=== PATIENT | female | born 1945 | race Caucasian/White ===

== ENCOUNTER → 2016-10-29 | Outpatient (CLI) | payer MEDICARE, OTHER ==
--- NOTE | 2016-10-29 11:34 | REP ---
URINARY TRACT SONOGRAPHY: HISTORY: Chronic kidney disease, stage IV. No comparison studies. FINDINGS: Scanning at the level of the urinary bladder shows that it is empty at the time of scanning and not visualized. Renal cortical echogenicity pattern is increased bilaterally consistent with chronic medical renal disease. There is no evidence of hydronephrosis on either side. Bilateral renal cortical atrophy is seen. There is the suggestion of some fullness in the right adrenal gland consistent with hyperplasia versus adenoma. Overall dimensions of the right adrenal are measured at 2.3 x 1.3 x 2.3 cm. Right renal dimensions are 8.4 x 3.8 x 5.5 cm. Left kidney measures 8.3 x 4.3 x 4.6 cm. IMPRESSION: Increased renal cortical echogenicity and bilateral renal cortical atrophy consistent with chronic medical renal disease. No mass, cyst or hydronephrosis is seen. Mild enlargement right adrenal gland, hyperplasia versus adenoma. Otherwise unremarkable. Signed by Ranjeet Almaguer MD 10/29/2016 12:59 P
== END ==
LOC: M RAD 10:01
PROVIDERS: ATTEND Internal Medicine Nephrology
DX: N18.4 Chronic kidney disease, stage 4 (severe) (principal)

== ENCOUNTER → 2018-10-17 | Outpatient (REF) | payer MEDICARE, OTHER ==
[2018-10-17 14:28] LABS: BASO # 0.1 10^3/uL (0.0-0.2); BASO % 1.3 % (0.0-1.0); EOS # 0.5 10^3/uL (0.0-0.50); HEMOGLOBIN 12.2 g/dl (12.0-15.5); LYMPH # 1.8 10^3/uL (1.5-4.5); LYMPH % 30.5 % (24.0-44.0); MEAN CORPUSCULAR HEMOGLOBIN 31.1 pg (27.0-33.0); MEAN CORPUSCULAR HGB CONC 32.1 g/dl (32.0-36.5); MEAN CORPUSCULAR VOLUME 96.9 fl (80.0-96.0); MONO # 0.8 10^3/uL (0.0-0.8); MONO % 13.2 % (0.0-5.0); NEUTROPHILS # 2.8 10^3/uL (1.8-7.7); NEUTROPHILS % 46.7 % (36.0-66.0); PLATELET COUNT, AUTOMATED 282 10^3/uL (150-450); RED BLOOD COUNT 3.92 10^6/uL (4.00-5.40)
== END ==
LOC: M LAB REF 14:14
PROVIDERS: ATTEND Internal Medicine Nephrology
DX: N18.4 Chronic kidney disease, stage 4 (severe) (principal); D63.1 Anemia in chronic kidney disease

== ENCOUNTER 2019-05-23 17:57 | Inpatient (IN) | payer BC, MEDICARE, OTHER ==
[~2019-05-23] VITALS: Ht 157.5 cm; Wt 73.4 kg
[2019-05-23] MEDS ORDERED: OXYB5TAB10 PO (18:06)
[2019-05-23] MEDS ORDERED: OMEP-218 PO (18:06)
[2019-05-23] MEDS ORDERED: TRAZ-252 PO (18:06)
[2019-05-23] MEDS ORDERED: POTA10CA32 PO (18:06)
[2019-05-23] MEDS ORDERED: PRAV40TA2 PO (18:06)
[2019-05-23] MEDS ORDERED: ESTR1TAB PO (18:06)
[2019-05-23] MEDS ORDERED: CALC1CAP31 PO (18:06)
[2019-05-23 18:45] LABS: BASO # 0.1 10^3/uL (0.0-0.2); BASO % 0.6 % (0.0-1.0); EOS # 0.5 10^3/uL (0.0-0.5); EOS % 5.3 % (0.0-3.0); HEMOGLOBIN 15.6 g/dl (12.0-15.5); LYMPH # 2.1 10^3/uL (1.5-5.0); LYMPH % 21.5 % (24.0-44.0); MEAN CORPUSCULAR HEMOGLOBIN 30.7 pg (27.0-33.0); MEAN CORPUSCULAR HGB CONC 33.2 g/dl (32.0-36.5); MEAN CORPUSCULAR VOLUME 92.5 fl (80.0-96.0); MONO % 9.7 % (0.0-5.0); NEUTROPHILS # 6.2 10^3/uL (1.5-8.5); NEUTROPHILS % 62.5 % (36.0-66.0); PLATELET COUNT, AUTOMATED 332 10^3/uL (150-450); RED BLOOD COUNT 5.08 10^6/uL (4.00-5.40)
[2019-05-23] MEDS ORDERED: NS 1,000 ML IV ONE (19:00)
[2019-05-23 19:05] LABS: BLOOD UREA NITROGEN 80 MG/DL (7-18); CALCIUM LEVEL 11.3 MG/DL (8.8-10.2); CARBON DIOXIDE LEVEL 22 MEQ/L (21-32); CHLORIDE LEVEL 98 MEQ/L (98-107); CREATININE FOR GFR 3.56 MG/DL (0.55-1.30); GLOMERULAR FILTRATION RATE 13.4 (>39); GLUCOSE, FASTING 134 MG/DL (70-100); POTASSIUM SERUM 3.7 MEQ/L (3.5-5.1); SODIUM LEVEL 135 MEQ/L (136-145)
[2019-05-23 19:40] LABS: ALBUMIN 3.8 GM/DL (3.2-5.2); ALT/SGPT 27 U/L (12-78); BILIRUBIN,DIRECT < 0.1 MG/DL (0.0-0.2); BILIRUBIN,TOTAL 0.4 MG/DL (0.2-1.0); CK-MB VALUE MASS < 1.0 NG/ML (<3.6); CPK CREATINE PHOSPHOKINASE 32 U/L (26-192); LIPASE 334 U/L (73-393); MB/CK RELATIVE INDEX 3.12 (< OR =4); TOTAL PROTEIN 8.1 GM/DL (6.4-8.2); TROPONIN I < 0.02 NG/ML (< 0.10)
[2019-05-23] MEDS ORDERED: NS 1,000 ML in IV 1 EA IV ONE (19:45)
--- NOTE | 2019-05-23 20:12 | REPVR ---
PROCEDURE INFORMATION: Exam: CT Abdomen And Pelvis Without Contrast Exam date and time: 05/23/2019 7:33 PM Age: 74 years old Clinical indication: Other: Diarrhea; Additional info: Diarrhea/decreased urination TECHNIQUE: Imaging protocol: Computed tomography of the abdomen and pelvis without contrast. Radiation optimization: All CT scans at this facility use at least one of these dose optimization techniques: automated exposure control; mA and/or kV adjustment per patient size (includes targeted exams where dose is matched to clinical indication); or iterative reconstruction. COMPARISON: RENAL US 10/29/2016 10:12 AM FINDINGS: Mediastinum: A moderate hiatal hernia is present. There is a diffusely thickened wall within the hiatal hernia which may represent redundant mucosa. Further evaluation with upper GI series and/or endoscopy recommended in order to exclude a mass. Liver: Normal. No mass. Gallbladder and bile ducts: There has been a cholecystectomy. Pancreas: There is mild diffuse pancreatic atrophy. Spleen: Normal. No splenomegaly. Adrenals: Normal. No mass. Kidneys and ureters: Normal. No hydronephrosis. Stomach and bowel: There is increased fluid demonstrated in the colon consistent with the reported history of diarrhea. No mass demonstrated. Appendix: No evidence of appendicitis. Intraperitoneal space: Unremarkable. No free air. No significant fluid collection. Vasculature: The aorta demonstrates mild atherosclerotic calcification. Lymph nodes: Unremarkable. No enlarged lymph nodes. Bladder: Urinary bladder is collapsed consistent with the reported history of decreased urine output. Reproductive: Unremarkable as visualized. Bones/joints: Grade 1 anterolisthesis of L4 on L5, degenerative in the absence of a pars defect. Moderate to severe central spinal stenosis L4-L5, mild central spinal stenosis L3-L4. Moderate to severe bilateral foraminal narrowing L5-S1. Soft tissues: Unremarkable. Other findings: Osteoporosis. IMPRESSION: 1. A moderate hiatal hernia is present. There is a diffusely thickened wall within the hiatal hernia which may represent redundant mucosa. Further evaluation with upper GI series and/or endoscopy recommended in order to exclude a mass. 2. There has been a cholecystectomy. 3. There is increased fluid demonstrated in the colon consistent with the reported history of diarrhea. No mass demonstrated. 4. There is mild diffuse pancreatic atrophy. 5. Urinary bladder is collapsed consistent with the reported history of decreased urine output. Electronically signed by: Albert Krueger On 05/23/2019 20:12:11 PM
[2019-05-23] MEDS ORDERED: OXYB5TAB3 PO (20:44)
[2019-05-23] MEDS ORDERED: POTASOL PO (20:54)
[2019-05-23] MEDS ORDERED: VITA100066 PO (20:54)
[2019-05-23] MEDS ORDERED: BENA25CA4 PO (20:54)
[2019-05-23] MEDS ORDERED: ODOR100T3 PO (20:54)
[2019-05-23] MEDS ORDERED: CALC600T60 PO (20:54)
[2019-05-23] MEDS ORDERED: GNP1000T11 PO (20:54)
[2019-05-23] MEDS ORDERED: FISH1000 PO (20:54)
[2019-05-23] MEDS ORDERED: ULTR5TAB PO (20:54)
[2019-05-23] MEDS ORDERED: ASPI81TA85 PO (20:54)
[2019-05-23] MEDS ORDERED: WOMETAB PO (20:54)
[2019-05-23 23:30] VITALS: BP 125/79
[2019-05-23] MEDS: PRAVASTATIN 20 MG TAB PO SCH (23:55)
[2019-05-23] MEDS: NS 1,000 ML IV SCH (23:55)
[2019-05-23] MEDS: HEPARIN SOD (PORCINE) 5000 UNITS/ML VIAL SC SCH (23:55)
[2019-05-23] MEDS: traZODone 50 MG TAB PO SCH (23:55)
--- NOTE | 2019-05-23 23:55 | HPEPDOC ---
[facility] Medical History & Physical Date of Admission May 23, 2019 Date of Service: May 23, 2019 Attending Physician: NELY OQUENDO MD History and Physical CHIEF COMPLAINT: Diarrhea HISTORY OF PRESENT ILLNESS: 74-year-old female with past medical history of chronic kidney disease presents with diarrhea for the past 10 days. Her symptoms have been worsening over this period with associated nausea, vomiting, and overall weakness. She also reports poor oral intake due to vomiting and decreased urine output for the past few days. In the ED, she is found to have acute kidney injury. She has no other complaints at this time, denies any chest pain, shortness of breath, abdominal pain, no headache. 10 point review of system is negative except for above PAST MEDICAL HISTORY: 1. Chronic kidney disease. 2. Hyperlipidemia. 3. GERD. PAST SURGICAL HISTORY: 1. Hysterectomy. 2. Cholecystectomy.. SOCIAL HISTORY: Never smoker. Denies alcohol. Denies drug use FAMILY HISTORY: Mother with uterine cancer ALLERGIES: Please see below. HOME MEDICATIONS: Please see below. PHYSICAL EXAMINATION: VITAL SIGNS: Please see below. GENERAL: No distress HEENT: Normocephalic, atraumatic, dry mucous membranes NECK: Supple CARDIOVASCULAR EXAMINATION: S1, S2, no murmurs RESPIRATORY EXAMINATION: Clear to auscultation, no wheezing ABDOMINAL EXAMINATION: Soft, nontender, nondistended, positive bowel sounds EXTREMITIES: Range of motion intact SKIN: No rash NEUROLOGICAL EXAMINATION: Alert and oriented 3, no focal deficits PSYCHIATRIC EXAMINATION: Calm and cooperative LABORATORY DATA: See below. IMAGING: CT abdomen negative for acute pathology MICROBIOLOGY: Please see below. ASSESSMENT: 74-year-old female with past medical history of chronic kidney disease is being admitted for acute on chronic kidney disease. PLAN: 1. Acute on chronic kidney disease. FeNa 0.3%, likely prerenal due to decreased oral intake and diarrhea, continue IV hydration. Stool panel pending Continue home chronic kidney disease meds DVT prophylaxis: Heparin subcutaneous. GI prophylaxis: Home PPI Vital Signs Vital Signs Date Time Temp Pulse Resp B/P (MAP) Pulse Ox O2 Delivery O2 Flow Rate FiO2 05/23/19 20:11 76 18 127/65 (85) 100 Room Air 05/23/19 17:57 97.2 Laboratory Data Labs 24H Laboratory Tests 2 05/23/19 18:15: Immature Granulocyte % (Auto) 0.4, Neutrophils (%) (Auto) 62.5, Lymphocytes (%) (Auto) 21.5L, Monocytes (%) (Auto) 9.7H, Eosinophils (%) (Auto) 5.3H, Basophils (%) (Auto) 0.6, Neutrophils # (Auto) 6.2, Lymphocytes # (Auto) 2.1, Monocytes # (Auto) 1.0H, Eosinophils # (Auto) 0.5, Basophils # (Auto) 0.1, Nucleated Red Blood Cells % (auto) 0.0, Anion Gap 15, Glomerular Filtration Rate 13.4L, Calcium Level 11.3H, Total Bilirubin 0.4, Direct Bilirubin < 0.1, Aspartate [place] o Transf (AST/SGOT) 18, Alanine Aminotransferase (ALT/SGPT) 27, Alkaline Phosphatase 62, Total Creatine Kinase 32, Creatine Kinase MB < 1.0, Creatine Kinase MB Relative Index 3.12, Troponin I < 0.02, Total Protein 8.1, Albumin 3.8, Albumin/Globulin Ratio 0.88L, Lipase 334 05/23/19 18:55: POC Lactate (Misc Panel) 1.43 05/23/19 22:14: Urine Color YELLOW, Urine Appearance HAZY, Urine pH 5.0, Urine Specific [place] 1.019, Urine Protein NEGATIVE, Urine Glucose (UA) NEGATIVE, Urine Ketones NEGATIVE, Urine Blood NEGATIVE, Urine Nitrite NEGATIVE, Urine Bilirubin NEGATIVE, Urine Urobilinogen 0.2, Urine Leukocyte Esterase NEGATIVE, Urine WBC (Auto) 1, Urine RBC (Auto) 1, Urine Hyaline Casts (Auto) 14, Urine Bacteria (Auto) 2+H, Urine Squamous Epithelial Cells 1, Urine Mucus (Auto) SMALL, Urine Sperm (Auto) , Urine Random Creatinine 141.0, Urine Random Sodium 20 CBC/BMP Laboratory Tests 05/23/19 18:15 Microbiology Microbiology 05/23/19 Gastrointestinal Tract Panel (PCR) - Final, Complete Home Medications Scheduled Aspirin (Aspir 81) 81 Mg Tablet.dr, 81 MG PO DAILY Biotin (Biotin) 5,000 Mcg Tab.rapdis, 5 MG PO DAILY Calcitriol (Calcitriol) 0.25 Mcg Capsule, 0.25 MCG PO 3XW SATURDAY, SATURDAY AND SATURDAY Calcium Carbonate (Calcium) 600 Mg Tablet, 600 MG PO DAILY Cholecalciferol (Vitamin D3) (Vitamin D3) 1,000 Unit Tablet, 1,000 UNIT PO DAILY Diphenhydramine HCl (Benadryl) 25 Mg Capsule, 25 MG PO QHS Estradiol (Estradiol) 1 Mg Tablet, 1 MG PO DAILY Garlic (Garlic) 100 Mg Tablet, 100 MG PO DAILY Glucosamine Sulfate [place] Chlr (Glucosamine) 1,000 Mg Tablet, 1,000 MG PO DAILY Multivit with Calcium,Iron,Min (Women's Daily Formula) 1 Each Tablet, 1 TAB PO DAILY [place]-3 Fatty Acids/Fish Oil (Fish Oil 1,000 mg Capsule) 1 Each Capsule, 1,000 MG PO DAILY Omeprazole (Omeprazole) 20 Mg Capsule.dr, 20 MG PO BID Oxybutynin Chloride (Oxybutynin Chloride ER) 5 Mg Tab.er.24, 5 MG PO DAILY Potassium Chloride (Potassium Chloride) 10 Meq Capsule.er, 10 MEQ PO DAILY Potassium Citrate/Citric Acid (Potassium Cit-Citric Acid Soln) 473 Ml Solution, 10 ML PO BID MIXES IN A GLASS OF WATER Pravastatin Sodium (Pravastatin Sodium) 40 Mg Tablet, 40 MG PO QHS Trazodone HCl (Trazodone HCl) 50 Mg Tablet, 50 MG PO QHS Allergies Coded Allergies: banana (Verified Allergy, Unknown, 05/23/19) latex (Verified Allergy, Unknown, 05/23/19) A-FIB/CHADSVASC A-FIB History Current/History of A-Fib/PAF?: No NELY OQUENDO MD May 23, 2019 23:55
[2019-05-23] MEDS: diphenhydrAMINE 25 MG CAP PO SCH (23:56)
[2019-05-23] MEDS: OMEPRAZOLE 20 MG CAP PO SCH (23:56)
[2019-05-24 05:09] VITALS: BP 121/69
[2019-05-24] MEDS: NS 1,000 ML IV SCH ×2 (08:00→16:24)
[2019-05-24] MEDS: oxyBUTYnin *DITROPAN XL* 5 MG TABCR PO SCH (08:43)
[2019-05-24] MEDS: ASPIRIN 81 MG ENTERIC TAB PO SCH (08:43)
[2019-05-24] MEDS: estradioL 1 MG TAB PO SCH (08:43)
[2019-05-24] MEDS: OMEPRAZOLE 20 MG CAP PO SCH ×2 (08:43→20:35)
[2019-05-24] MEDS: CALCIUM CARBONATE 500 MG CHEW U/D PO SCH (08:43)
[2019-05-24] MEDS: VITAMIN D 1,000 INTERNATIONAL UNITS TABLET PO SCH (08:43)
[2019-05-24] MEDS: HEPARIN SOD (PORCINE) 5000 UNITS/ML VIAL SC SCH ×2 (08:44→20:36)
[2019-05-24] MEDS ORDERED: PREVNAR 13 VACCINE SYRINGE (CPT CODE:90670) IM ONE (09:00)
[2019-05-24 10:14] LABS: HEMATOCRIT 36.1 % (36.0-47.0); MEAN CORPUSCULAR HEMOGLOBIN 31.1 pg (27.0-33.0); MEAN CORPUSCULAR HGB CONC 32.7 g/dl (32.0-36.5); WHITE BLOOD COUNT 7.2 10^3/uL (4.0-10.0)
[2019-05-24 10:15] LABS: HEMOGLOBIN 11.8 g/dl (12.0-15.5); PLATELET COUNT, AUTOMATED 216 10^3/uL (150-450)
[2019-05-24 10:44] LABS: ALBUMIN 2.5 GM/DL (3.2-5.2); BILIRUBIN,TOTAL 0.2 MG/DL (0.2-1.0); CALCIUM LEVEL 8.6 MG/DL (8.8-10.2); CREATININE FOR GFR 2.39 MG/DL (0.55-1.30); GLOMERULAR FILTRATION RATE 21.2 (>39); POTASSIUM SERUM 3.2 MEQ/L (3.5-5.1); TOTAL PROTEIN 5.9 GM/DL (6.4-8.2)
[2019-05-24] MEDS ORDERED: POTASSIUM CHLORIDE 10% LIQ 20 MEQ/15 ML UDC PO ONE (13:00)
[2019-05-24 14:00] VITALS: BP 120/57
--- NOTE | 2019-05-24 15:39 | ECGEPIP ---
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
[2019-05-24] MEDS: PRAVASTATIN 20 MG TAB PO SCH (20:35)
[2019-05-24] MEDS: traZODone 50 MG TAB PO SCH (20:35)
[2019-05-24] MEDS: diphenhydrAMINE 25 MG CAP PO SCH (20:35)
[2019-05-24 22:00] VITALS: BP 116/58
[2019-05-24] MEDS ORDERED: ACETAMINOPHEN TAB 650MG DOSE (2X325MG) PO PRN (23:30)
[2019-05-25] MEDS: NS 1,000 ML IV SCH ×2 (04:31→14:01)
[2019-05-25 06:00] VITALS: BP 121/60
--- NOTE | 2019-05-25 07:31 | IPN ---
DATE: 05/24/2019 74-year-old female admitted with acute on chronic renal failure. She had been having diarrhea for the past 10 days. She states today that she has not had any today. She has had no vomiting. She was feeling much improved. GI panel was negative. Potassium was 3.2, supplement has been given. BUN improved to 66, creatinine 2.39. Yesterday it was 80 and 3.5. White count is normal at 7.2, hemoglobin 11.8, hematocrit 36.1. OBJECTIVE: She has been afebrile. Vital signs are stable. Blood pressure 120/57, pulse 67, respirations 17, temperature 98.7, oxygen saturation 99% on room air. Patient is alert and oriented times three. Pupils equal and reactive to light. Extraocular movements intact. Pharynx, tongue and gums pink and moist. Tongue is midline. Neck is supple without lymphadenopathy. No thyromegaly. No goiter. Carotids 2+ without bruit. Chest clear to auscultation without wheeze or retraction. Heart is regular. Abdomen is soft, nontender. No masses, pulsations or bruits. No organomegaly. Bowel sounds are positive. /rectal not done. Extremities no edema. IMPRESSION/PLAN: Acute on chronic kidney disease. Improving. Continue IV hydration. Out of bed to ambulate. Recheck labs in the a.m. Deep vein thrombosis (DVT) prophylaxis. Continue heparin subcu.
--- NOTE | 2019-05-25 08:30 | IPN ---
DATE: 05/25/2019 [place] is on the hospitalist service with a gastroenteritis and acute on chronic kidney disease. Unfortunately, no labs were ordered for today. She is eating her breakfast well. Feels better on a daily basis. PHYSICAL EXAMINATION: She is afebrile. 121/60. General Appearance: Alert, conversant, in no distress. Lungs: Clear. Heart: Regular rhythm. Abdomen: Soft. Nontender. No peripheral edema. She says no diarrhea. LABS: Unfortunately no labs ordered for today. IMPRESSION: 1. In the absence of any lab data, it is tough to really know what to do with her today. I have ordered stat labs and also some for tomorrow. If the labs show improved renal function, will reduce her IV fluids. Her potassium will need to be addressed based upon results of labs also. Expect possible discharge tomorrow.
[2019-05-25] MEDS ORDERED: CALCITRIOL 0.25 MCG CAP (S0169) PO SCH (09:00)
[2019-05-25 09:04] LABS: HEMATOCRIT 34.2 % (36.0-47.0); MEAN CORPUSCULAR HEMOGLOBIN 30.6 pg (27.0-33.0); MEAN CORPUSCULAR HGB CONC 32.2 g/dl (32.0-36.5); MEAN CORPUSCULAR VOLUME 95.3 fl (80.0-96.0); PLATELET COUNT, AUTOMATED 219 10^3/uL (150-450); RED BLOOD COUNT 3.59 10^6/uL (4.00-5.40); WHITE BLOOD COUNT 5.5 10^3/uL (4.0-10.0)
[2019-05-25 09:33] LABS: CREATININE FOR GFR 1.59 MG/DL (0.55-1.30); GLOMERULAR FILTRATION RATE 33.9 (>39); POTASSIUM SERUM 3.8 MEQ/L (3.5-5.1)
[2019-05-25] MEDS: ASPIRIN 81 MG ENTERIC TAB PO SCH (09:41)
[2019-05-25] MEDS: CALCIUM CARBONATE 500 MG CHEW U/D PO SCH (09:41)
[2019-05-25] MEDS: OMEPRAZOLE 20 MG CAP PO SCH ×2 (09:41→21:36)
[2019-05-25] MEDS: oxyBUTYnin *DITROPAN XL* 5 MG TABCR PO SCH (09:41)
[2019-05-25] MEDS: VITAMIN D 1,000 INTERNATIONAL UNITS TABLET PO SCH (09:41)
[2019-05-25] MEDS: HEPARIN SOD (PORCINE) 5000 UNITS/ML VIAL SC SCH ×2 (09:42→21:36)
[2019-05-25] MEDS: estradioL 1 MG TAB PO SCH (09:42)
[2019-05-25 14:00] VITALS: BP 122/61
[2019-05-25] MEDS ORDERED: KCL 20MEQ IN 0.45NS 1000ML 1,000 ML IV SCH (20:45)
[2019-05-25] MEDS: PRAVASTATIN 20 MG TAB PO SCH (21:36)
[2019-05-25] MEDS: traZODone 50 MG TAB PO SCH (21:36)
[2019-05-25] MEDS: diphenhydrAMINE 25 MG CAP PO SCH (21:36)
[2019-05-25 22:00] VITALS: BP 128/64
[2019-05-26 06:00] VITALS: BP 114/58
[2019-05-26 07:03] LABS: HEMATOCRIT 32.2 % (36.0-47.0); HEMOGLOBIN 10.3 g/dl (12.0-15.5); MEAN CORPUSCULAR HEMOGLOBIN 30.8 pg (27.0-33.0); MEAN CORPUSCULAR VOLUME 96.4 fl (80.0-96.0); PLATELET COUNT, AUTOMATED 194 10^3/uL (150-450); RED BLOOD COUNT 3.34 10^6/uL (4.00-5.40); WHITE BLOOD COUNT 4.9 10^3/uL (4.0-10.0)
[2019-05-26 07:20] LABS: CALCIUM LEVEL 7.5 MG/DL (8.8-10.2); CREATININE FOR GFR 1.3 MG/DL (0.55-1.30); GLOMERULAR FILTRATION RATE 42.7 (>39)
--- NOTE | 2019-05-26 08:48 | DSES ---
DATE OF ADMISSION: 05/23/2019 DATE OF DISCHARGE: PRINCIPAL DIAGNOSIS: Acute renal failure superimposed on chronic kidney disease secondary to presumed viral gastroenteritis with dehydration. SECONDARY DIAGNOSES: 1. Hyperlipidemia. 2. History of depression. 3. Overactive bladder. 4. Stage III chronic kidney disease. PRIMARY CARE PROVIDER: Lyubov Hickey DO GYROSCOPIC INSTRUMENT MECHANIC: Beto Leon MD HISTORY: The patient admitted with acute renal failure superimposed on chronic kidney disease secondary to diarrhea from presumed viral enteritis. Details in history and physical (H and P) from admission. HOSPITAL COURSE: The patient admitted to a medical bed. Gastrointestinal (GI) panel was negative. She was hydrated. Renal function slowly improved. On day of discharge, her renal function is back to baseline. Creatinine is 1.3. It was 3.5 on admission, and electrolyte abnormalities stabilized, and her blood pressure is restored to normal. On day of discharge, her blood pressure (BP) is 114/58, pulse 59, respiratory rate 18, 97% oxygen (O2) saturation. She is alert, conversant, in no distress. Lungs clear. Heart: Regular rate and rhythm. Abdomen: Soft, nontender. No peripheral edema. LABORATORIES: Today, sodium is 143, potassium 4, BUN 52, creatinine 1.3, glucose 83. White count 490, hemoglobin 10.3, platelets 193. DISPOSITION: The patient is discharged home improved in stable condition. Will followup with Dr. Hickey in a week. Followup with Dr. Leon per his office. Activity as tolerated. [id number] diet recommended. Low-fat/cholesterol in addition. Her medications will continue to be aspirin 81 mg daily, calcitriol 0.25 mcg three days a week (Saturday, Saturday, Saturday), calcium carbonate 600 mg daily, vitamin D 1000 units daily, Benadryl as needed at bedtime, estradiol 1 mg daily, glucosamine as needed, omeprazole 20 mg twice a day, oxybutynin ER 5 mg daily, potassium chloride 10 mEq daily, potassium citrate 10 mL twice a day, pravastatin 40 mg daily, trazodone 50 mg nightly. She is on fish oil, which we will discontinue as it has been proven to have no cardiovascular benefit. Also, stop her garlic supplement. At the time of this dictation, there are no pending laboratories.
[2019-05-26] MEDS: HEPARIN SOD (PORCINE) 5000 UNITS/ML VIAL SC SCH ×2 (09:00→09:22)
[2019-05-26] MEDS: CALCIUM CARBONATE 500 MG CHEW U/D PO SCH (09:22)
[2019-05-26] MEDS: VITAMIN D 1,000 INTERNATIONAL UNITS TABLET PO SCH (09:22)
[2019-05-26] MEDS: oxyBUTYnin *DITROPAN XL* 5 MG TABCR PO SCH (09:22)
[2019-05-26] MEDS: ASPIRIN 81 MG ENTERIC TAB PO SCH (09:22)
[2019-05-26] MEDS: OMEPRAZOLE 20 MG CAP PO SCH (09:23)
[2019-05-26] MEDS: estradioL 1 MG TAB PO SCH (09:23)
== END 2019-05-26 10:15 | disposition home or self-care (01) | DRG 392 ==
LOC: M ED 17:57 → M ED INP 22:46 → M MS5PR 23:25
PROVIDERS: ADMIT Internal Medicine; ATTEND Family Medicine
DX: A08.4 Viral intestinal infection, unspecified (principal); N17.9 Acute kidney failure, unspecified; N18.3 Chronic kidney disease, stage 3 (moderate); E86.0 Dehydration; F32.9 Major depressive disorder, single episode, unspecified; Z79.82 Long term (current) use of aspirin; Z79.899 Other long term (current) drug therapy; E78.5 Hyperlipidemia, unspecified; K21.9 Gastro-esophageal reflux disease without esophagitis; Z91.040 Latex allergy status; Z91.018 Allergy to other foods

== ENCOUNTER → 2019-06-03 | Outpatient (CLI) | payer MEDICARE ==
[~2019-06-03] MED LIST: ASPI81TA85 PO; BENA25CA4 PO; CALC1CAP31 PO; CALC600T60 PO; ESTR1TAB PO; FISH1000 PO; GNP1000T11 PO; ODOR100T3 PO; OMEP-218 PO; OXYB5TAB10 PO; OXYB5TAB3 PO; POTA10CA32 PO; POTASOL PO; PRAV40TA2 PO; TRAZ-252 PO; ULTR5TAB PO; VITA100066 PO; WOMETAB PO
[2019-06-03 14:59] LABS: BASO # 0.1 10^3/uL (0.0-0.2); BASO % 0.8 % (0.0-1.0); EOS # 0.4 10^3/uL (0.0-0.5); EOS % 4.7 % (0.0-3.0); HEMATOCRIT 35.9 % (36.0-47.0); HEMOGLOBIN 11.4 g/dl (12.0-15.5); LYMPH # 1.7 10^3/uL (1.5-5.0); LYMPH % 21.9 % (24.0-44.0); MEAN CORPUSCULAR HEMOGLOBIN 31.3 pg (27.0-33.0); MEAN CORPUSCULAR HGB CONC 31.8 g/dl (32.0-36.5); MEAN CORPUSCULAR VOLUME 98.6 fl (80.0-96.0); MONO # 0.9 10^3/uL (0.0-0.8); NEUTROPHILS # 4.6 10^3/uL (1.5-8.5); NEUTROPHILS % 60.2 % (36.0-66.0); PLATELET COUNT, AUTOMATED 297 10^3/uL (150-450); RED BLOOD COUNT 3.64 10^6/uL (4.00-5.40); WHITE BLOOD COUNT 7.7 10^3/uL (4.0-10.0)
[2019-06-03 15:20] LABS: CALCIUM LEVEL 8.5 MG/DL (8.8-10.2); CREATININE FOR GFR 1.45 MG/DL (0.55-1.30); GLOMERULAR FILTRATION RATE 37.7 (>39)
== END ==
LOC: M LAB 14:11
PROVIDERS: ATTEND Family Medicine
DX: N17.9 Acute kidney failure, unspecified (principal)

== ENCOUNTER 2019-09-05 17:38 | Emergency (ER) | payer MEDICARE ==
[~2019-09-05] VITALS: Ht 162.6 cm; Wt 78.6 kg
[~2019-09-05 17:38] MED LIST changes: +OXYB-54 PO; -OXYB5TAB3 PO
[2019-09-05 17:47] VITALS: BP 165/90
== END 2019-09-05 19:17 | disposition home or self-care (01) ==
LOC: M ED 17:38
DX: F43.20 Adjustment disorder, unspecified (principal); F43.0 Acute stress reaction; I25.10 Atherosclerotic heart disease of native coronary artery without angina pectoris; E78.00 Pure hypercholesterolemia, unspecified; Z79.899 Other long term (current) drug therapy; Z79.82 Long term (current) use of aspirin; Z91.018 Allergy to other foods; Z91.040 Latex allergy status

== ENCOUNTER → 2020-08-24 | Outpatient (CLI) | payer MEDICARE, BC ==
[~2020-08-24] MED LIST changes: -ASPI81TA85 PO; +ASPI81TA86 PO
[2020-08-24 11:22] LABS: BASO # 0.1 10^3/uL (0.0-0.2); BASO % 0.7 % (0.0-1.0); EOS # 0.2 10^3/uL (0.0-0.5); EOS % 2.9 % (0.0-3.0); HEMATOCRIT 36.6 % (36.0-47.0); LYMPH # 1.7 10^3/uL (1.5-5.0); LYMPH % 23.9 % (24.0-44.0); MEAN CORPUSCULAR HEMOGLOBIN 31.3 pg (27.0-33.0); MEAN CORPUSCULAR HGB CONC 32.8 g/dl (32.0-36.5); MEAN CORPUSCULAR VOLUME 95.3 fl (80.0-96.0); MONO # 0.8 10^3/uL (0.0-0.8); NEUTROPHILS # 4.1 10^3/uL (1.5-8.5); NEUTROPHILS % 59.8 % (36.0-66.0); PLATELET COUNT, AUTOMATED 286 10^3/uL (150-450); RED BLOOD COUNT 3.84 10^6/uL (4.00-5.40); WHITE BLOOD COUNT 6.9 10^3/uL (4.0-10.0)
[2020-08-24 11:54] LABS: ALBUMIN 3.6 GM/DL (3.2-5.2); BILIRUBIN,TOTAL 0.2 MG/DL (0.2-1.0); CALCIUM LEVEL 9.1 MG/DL (8.8-10.2); CREATININE FOR GFR 1.77 MG/DL (0.55-1.30); FREE T4 0.92 NG/DL (0.76-1.46); GLOMERULAR FILTRATION RATE 29.9 (>39); POTASSIUM SERUM 3.9 MEQ/L (3.5-5.1); THYROID STIMULATING HORMONE 5.12 uIU/ML (0.358-3.740); TOTAL PROTEIN 6.7 GM/DL (6.4-8.2); URIC ACID 6.7 MG/DL (2.6-6.0)
== END ==
LOC: M LAB 10:39
PROVIDERS: ATTEND Family Medicine
DX: N18.4 Chronic kidney disease, stage 4 (severe) (principal); E78.2 Mixed hyperlipidemia

== ENCOUNTER 2021-03-04 14:31 | Emergency (ER) | payer MEDICARE, BC ==
[~2021-03-04] VITALS: Ht 152.4 cm; Wt 82.4 kg
[2021-03-04 14:31] VITALS: BP 159/70
[2021-03-04 17:18] LABS: HEMATOCRIT 37.6 % (36.0-47.0); HEMOGLOBIN 12.1 g/dl (12.0-15.5); MEAN CORPUSCULAR HEMOGLOBIN 29.1 pg (27.0-33.0); MEAN CORPUSCULAR HGB CONC 32.2 g/dl (32.0-36.5); MEAN CORPUSCULAR VOLUME 90.4 fl (80.0-96.0); PLATELET COUNT, AUTOMATED 369 10^3/uL (150-450); RED BLOOD COUNT 4.16 10^6/uL (4.00-5.40); WHITE BLOOD COUNT 9.6 10^3/uL (4.0-10.0)
[2021-03-04 17:35] LABS: AMPHETAMINES LEVEL URINE NEGATIVE (NEGATIVE); BARBITURATES URINE NEGATIVE (NEGATIVE); BENZODIAZEPINES URINE NEGATIVE (NEGATIVE); CANNABINOIDS URINE NEGATIVE (NEGATIVE); COCAINE METABOLITE URINE NEGATIVE (NEGATIVE); METHADONE URINE NEGATIVE (NEGATIVE); OPIATES URINE NEGATIVE (NEGATIVE); PHENCYCLIDINE URINE NEGATIVE (NEGATIVE)
[2021-03-04 17:46] LABS: ACETAMINOPHEN LEVEL < 2.0 UG/ML (10.0-30.0); ALBUMIN 3.4 GM/DL (3.2-5.2); ALT/SGPT 22 U/L (12-78); BILIRUBIN,DIRECT < 0.1 MG/DL (0.0-0.2); BILIRUBIN,TOTAL 0.2 MG/DL (0.2-1.0); BLOOD UREA NITROGEN 48 MG/DL (7-18); CALCIUM LEVEL 9.8 MG/DL (8.8-10.2); CARBON DIOXIDE LEVEL 26 MEQ/L (21-32); CHLORIDE LEVEL 104 MEQ/L (98-107); CREATININE FOR GFR 2.03 MG/DL (0.55-1.30); ETHYL ALCOHOL (ETHANOL) < 0.003 % (0.000-0.010); GLOMERULAR FILTRATION RATE 25.5 (>39); GLUCOSE, FASTING 94 MG/DL (70-100); POTASSIUM SERUM 3.6 MEQ/L (3.5-5.1); SALICYLATE LEVEL < 1.7 MG/DL (5.0-30.0); SODIUM LEVEL 139 MEQ/L (136-145); TOTAL PROTEIN 7.1 GM/DL (6.4-8.2)
== END 2021-03-05 06:04 | disposition home or self-care (01) ==
LOC: M ED 14:31
DX: R11.0 Nausea (principal); R45.89 Other symptoms and signs involving emotional state; N18.9 Chronic kidney disease, unspecified; E78.9 Disorder of lipoprotein metabolism, unspecified; K21.9 Gastro-esophageal reflux disease without esophagitis; Z79.899 Other long term (current) drug therapy; Z79.82 Long term (current) use of aspirin; Z91.018 Allergy to other foods; Z91.040 Latex allergy status

== ENCOUNTER 2021-03-28 11:03 | Inpatient (IN) | payer MEDICARE, BC ==
[~2021-03-28] VITALS: Ht 162.6 cm; Wt 84.0 kg
[2021-03-28] MEDS: oxyBUTYnin *DITROPAN XL* 5 MG TABCR PO SCH (09:00)
[2021-03-28 12:04] LABS: VENOUS BASE EXCESS 7.8 (-2.0-2.0); VENOUS HCO3 33.5 MEQ/L (23.0-27.0); VENOUS O2 SATURATION 87.1 % (60.0-80.0); VENOUS PARTIAL PRESSURE CO2 51.1 mmHg (38.0-50.0); VENOUS PARTIAL PRESSURE O2 55.6 mmHg (30.0-50.0); VENOUS PH 7.434 UNITS (7.330-7.430); VENOUS STANDARD HCO3 31.4 MEQ/L
--- NOTE | 2021-03-28 12:23 | REP ---
INDICATION: Altered Mental Status. COMPARISON: None. TECHNIQUE: Single portable AP view of the chest was performed. FINDINGS: There is poor ventilation. There are crowded lung markings in each lung base. No consolidating infiltrate is seen. The heart and mediastinum are grossly unremarkable. IMPRESSION: Poor ventilation. No gross infiltrate. <Electronically signed by Panchito Gonzalez > 03/28/21 2038
[2021-03-28 12:24] LABS: BASO # 0.1 10^3/uL (0.0-0.2); BASO % 0.5 % (0.0-1.0); EOS # 0.1 10^3/uL (0.0-0.5); EOS % 1.5 % (0.0-3.0); HEMATOCRIT 36.7 % (36.0-47.0); HEMOGLOBIN 11.9 g/dl (12.0-15.5); LYMPH # 1.2 10^3/uL (1.5-5.0); LYMPH % 12.8 % (24.0-44.0); MEAN CORPUSCULAR HEMOGLOBIN 29.7 pg (27.0-33.0); MEAN CORPUSCULAR HGB CONC 32.4 g/dl (32.0-36.5); MEAN CORPUSCULAR VOLUME 91.5 fl (80.0-96.0); MONO # 1.1 10^3/uL (0.0-0.8); MONO % 11.9 % (2.0-8.0); NEUTROPHILS # 6.9 10^3/uL (1.5-8.5); NEUTROPHILS % 72.8 % (36.0-66.0); PLATELET COUNT, AUTOMATED 308 10^3/uL (150-450); RED BLOOD COUNT 4.01 10^6/uL (4.00-5.40); WHITE BLOOD COUNT 9.4 10^3/uL (4.0-10.0)
[2021-03-28 12:51] LABS: OSMOLALITY SERUM 294 MOSM/KG (280-301)
[2021-03-28 13:00] LABS: RSV AMPLIFICATION NEGATIVE (NEGATIVE)
[2021-03-28 13:17] LABS: ALBUMIN 3.3 GM/DL (3.2-5.2); ALT/SGPT 23 U/L (12-78); BILIRUBIN,DIRECT < 0.1 MG/DL (0.0-0.2); BILIRUBIN,TOTAL 0.3 MG/DL (0.2-1.0); BLOOD UREA NITROGEN 44 MG/DL (7-18); CARBON DIOXIDE LEVEL 35 MEQ/L (21-32); CHLORIDE LEVEL 95 MEQ/L (98-107); CK-MB VALUE MASS < 1.0 NG/ML (<3.6); CPK CREATINE PHOSPHOKINASE 90 U/L (26-192); CREATININE FOR GFR 3.79 MG/DL (0.55-1.30); GLOMERULAR FILTRATION RATE 12.4 (>39); GLUCOSE, FASTING 100 MG/DL (70-100); MB/CK RELATIVE INDEX 1.11 (< OR =4); POTASSIUM SERUM 4.5 MEQ/L (3.5-5.1); SODIUM LEVEL 135 MEQ/L (136-145); TOTAL PROTEIN 6.5 GM/DL (6.4-8.2); TROPONIN I < 0.02 NG/ML (< 0.10)
[2021-03-28 13:20] LABS: CALCIUM LEVEL 15.9 MG/DL (8.8-10.2)
[2021-03-28] MEDS ORDERED: NS 1,000 ML IV SCH (13:50)
[2021-03-28 14:15] LABS: TOTAL 25(OH) VITAMIN D 27.6 NG/ML (30.0-100.0)
[2021-03-28 14:16] LABS: PTH INTACT 26.3 PG/ML (18.5-88.0)
[2021-03-28] MEDS ORDERED: ACETAMINOPHEN TAB 650MG DOSE (2X325MG) PO PRN (14:20)
[2021-03-28] MEDS ORDERED: ECOT81TA5 PO (14:39)
[2021-03-28] MEDS ORDERED: VITA-168 PO (14:39)
--- OUTSIDE RECORDS SUMMARY | 2021-03-28 14:39 | CCD | Continuity of Care Document ---
Author Author Alka HICKEY D.O. Organization Unknown Address [address] [place] [address] Phone [phone] Care Team Providers Care [employer] Developer Name Role Phone Lyubov Hickey D.O. AUTM Dale Leontia Choi AUTM [phone] Wilmar Fiore M.D. AUTM [phone] [facility] AUTM [phone] Problems Active Problems Provider Date Essential hypertension KATHRYN Khan Onset: 11/23/19 17 Mixed hyperlipidemia KATHRYN Khan Onset: 11/22/2016 Chronic kidney disease stage 4 Lyubov Hickey D.O. On set: 02/26/2017 Gastroesophageal reflux disease Lyubov Hickey D.O. O nset: 02/26/2017 Insomnia Lyubov Hickey D.O. 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 Onset: 2017 Hyperparathyroidism due to renal insufficiency Lyubov Delong D.O. Onset: 10/14/2017 Social History Type Date Description Comments Sex Unknown ETOH Use Occasionally consumes alcohol Tobacco Use Start: Unknown Patient has never smoked Recreational Drug Use Denies Drug Use Smoking Status Reviewed: 03/22/21 Patient has never smoked Exercise Type/Frequency Walks 2 times a week Sun Exposure Uses sunscreen Seat Belt/Car Seat Always uses seat belt Allergies and adverse reactions Active Allergies Criticality Reaction | Severity Comments Date Bananas Unable to assess criticality 10/31/2016 Latex Unable to assess criticality 10/31/2016 Medications Active Medications SIG Qnty Indications Ordering Provide r Date Levothyroxine Sodium 50mcg Tablets take one tablet by mouth every morning on an empty stomach 90tabs E03.9 Lyubov Hickey D.O. 09/12/2020 Potassium Chloride ER 10Meq Capsul es ER take one capsule by mouth every day 90caps Lyubov Carrillo D.O. 01/01/2020 Spironolactone 25mg Tablets 1 by mouth as needed for edema 90tabs Tia Rapp.O. 12/2019 Vitamin D3 25mcg (1000 Ut) Chewtabs Unknown Meclizine HCL 25mg Tablets 1 tablet by mouth as needed every 6 hours Unknown Nystatin [id number]/GM Cream apply small amount to rash around anus externally twice daily as needed (ok to mix with vaseline) Unknown Premarin 0.625mg Tablets 1 by mouth every day Unknown Cytra-3 [id number]/5ML Syrup Unknown Magnesium Gluconate 500mg Tablets Unknown Hydralazine HCL 25mg Tablets 1 by mouth three times daily 270tabs Lyubov Hickey D.O. Buspirone HCL 5mg Tablets take one tablet by mouth three times s day 270tabs Lyubov Hickey D.O. Biotin 5000 5mg Capsules 1 by mouth every day Unknown Calcitriol 0.25mcg Capsules 1 cap by mouth daily 90caps Lyubov Hickey D.O. Calcium Citrate-Vitamin D3 1000-400 Liquid 1 by mouth every day Unknown 000 Trazodone HCL 50mg Tablets 1 tablet by mouth each night 90tabs Tia Rapp.O. Oxybutynin Chloride ER 5mg Tablets ER 24HR 1 by mouth every day 90tabs Lyubov Hickey D.O. Benadryl Allergy 25mg Tablets take 1 tablet by mouth every night at bedtime as needed Unknown Glucosamine Chondroitin 500 Complex 500Comp Capsules 2 by mouth once a day Unknown Pravastatin Sodium 40mg Tablets take one tablet by mouth every night 90tabs Cony RappOYash Omeprazole 20[address] Caps[address] DR 1 tab by mouth twice a day 180caps Cony RappOYash Aspir-[address] 1 by mouth every day Unknown Multivitamin Adult Tablets 1 by mouth every day Unknown Medications Administered in Office Medication SIG Qnty Indications Ordering Provider Date Immunization Administration Single Or Co mbination Injection Nurse 04/22/2019 Immunizations CPT Code Status Date Vaccine Lot # [id number] Given 04/22/2019 Influenza Virus Vaccine, Quadrivalent, Split, Preservative Free [id number] Given 04/22/2019 Influenza Virus Vaccine, Quadrivalent, Split, Preservative Free [id number] Vital Signs Date Vital Result Comment 03/22/2021 11:15am BP Systolic 138 mmHg BP Diastolic 78 mmHg Height 61.0 inches 5'1" Weight 180.38 lb BMI (Body Mass Index) 34.1 kg/m2 Heart Rate 94 /min Respiratory Rate 18 /min Body Temperature 96.9 F O2 % BldC Oximetry 98 % [place] Body Weight 105 lb 09/12/2020 1:53pm BP Systolic 136 mmHg BP Diastolic 74 mmHg Height 61.0 inches 5'1" Weight 178.00 lb BMI (Body Mass Index) 33.6 kg/m2 Heart Rate 88 /min Respiratory Rate 18 /min Body Temperature 97.7 F O2 % BldC Oximetry 97 % [place] Body Weight 105 lb Results Test Acquired Date Facility Test Result H/L Range Note Complete Blood Count 03/04/2021 [facility] Outpatient Test ing (Registration) [address] [place] [address] [phone] White Blood Count 9.6 10 Normal 4.0-10.0 Red Blood Count 4.16 10 Normal 4.00-5.40 Hemoglobin 12.1 g/dL Normal 12.0-15.5 Hematocrit 37.6 % Normal 36.0-47.0 Mean Corpuscular Volume 90.4 fl Normal 80.0-96.0 Mean Corpuscular Hemoglobin 29.1 pg Normal 27.0-33.0 Mean Corpuscular HGB Conc 32.2 g/dL Normal 32.0-36.5 Red Cell Distribution Width 14.5 % Normal 11.5-14.5 Platelet Count, Automated 369 10 Normal 150-450 Nucleated Red Blood Cell % 0.0 % Normal 0-0 Laboratory test finding 03/04/2021 [facility] Outpatient T esting (Registration) [address] [place], [place] [id number] [phone] Lipase 167 U/L Normal 73-393 Drug Eval Toxicology ED Only 03/04/2021 [facility] Outpati ent Testing (Registration) [address] [place] [address] [phone] Amphetamines Level Urine NEGATIVE Normal Negativ e Barbiturates Urine NEGATIVE Normal Negative Benzodiazepines Urine NEGATIVE Normal Negative Cannabinoids Urine NEGATIVE Normal Negative Cocaine Metabolite Urine NEGATIVE Normal Negative Methadone Urine NEGATIVE Normal Negative Opiates Urine NEGATIVE Normal Negative Phencyclidine Urine NEGATIVE Normal Negative 1 Liver Profile 03/04/2021 [facility] Outpatient Testi ng (Registration) [address] [place] [address] [phone] Ast/Sgot 18 U/L Normal 7-37 Alt/SGPT 22 U/L Normal 12-78 Alkaline Phosphatase 46 U/L Normal 45-117 Bilirubin,Total 0.2 mg/dL Normal 0.2-1.0 Bilirubin,Direct < 0.1 mg/dL Normal 0.0-0.2 Total Protein 7.1 GM/DL Normal 6.4-8.2 Albumin 3.4 GM/DL Normal 3.2-5.2 Albumin/Globulin Ratio 0.9 Low 1.2-2.2 Basic Metabolic Profile 03/04/2021 [facility] Outpatient T esting (Registration) [address] [place] [address] [phone] Glucose, Fasting 94 mg/dL Normal 70-100 Blood Urea Nitrogen 48 mg/dL High 7-18 Creatinine For GFR 2.03 mg/dL High 0.55-1.30 Glomerular Filtration Rate 25.5 Low >39 2 Sodium Level 139 mEq/L Normal 136-145 Potassium Serum 3.6 mEq/L Normal 3.5-5.1 Chloride Level 104 mEq/L Normal 98-107 Carbon Dioxide Level 26 mEq/L Normal 21-32 Anion Gap 9 mEq/L Normal 8-16 Calcium Level 9.8 mg/dL Normal 8.8-10.2 Laboratory test finding 03/04/2021 [facility] Outpatient Jazmin fuentes (Registration) [address] [place] [address] [phone] Ethyl Alcohol (Ethanol) < 0.003 % Normal 0.000-0. 010 Salicylate Level < 1.7 mg/dL Low 5.0-30.0 Acetaminophen Level < 2.0 UG/ML Low 10.0-30.0 Thyroid Stimulating Hormone 1.890 uIU/ML Normal 0.358-3.740 1 ALL PRESUMPTIVE POSITIVE FINDINGS ARE UNCONFIRMED THRESHOLD IN NG/ML AMPHETAMINES/METHAMPHET 1000 BARBITURATES 200 BENZODIAZEPINES 200 CANNABINOIDS (THC) 50 COCAINE METABOLITE 300 METHADONE 300 OPIATES 300 PHENCYCLIDINE 25 RESULTS ARE FOR MEDICAL PURPOSES ONLY. ALL URINE SPECIMENS WILL BE SAVED FOR 3 DAYS. IF CONFIRMATION OF A PRESUMPTIVE POSITIVE SCREEN RESULT IS DESIRED, CALL CHEMISTRY ([phone]) AND REQUEST URINE TO BE SENT TO REFERENCE LAB. FOR A LIST OF CLOSELY RELATED COMPOUNDS PLEASE CALL THE LAB. 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 N18.4 Chronic kidney disease, stag e 4 (severe) E03.9 Hypothyroidism, unspecified E78.2 Mixed hyperlipidemia K21.9 Gastro-esophageal reflux dis ease without esophagitis I12.9 Hypertensive chronic kidney disease w stg 1-4/unsp chr kdny Z91.018 Allergy to other foods Z91.040 Latex allergy status Z79.899 Other retirement (current) dr giles therapy Z79.82 [facility] (current) use of a spirin N25.81 Secondary hyperparathyroidis m of renal origin F43.21 Adjustment disorder with dep ressed mood Assessments Date Code Description Provider 03/22/2021 N18.4 Chronic kidney disease, stage 4 (severe) Lyubov Hickey D.O. 03/22/2021 E03.9 Hypothyroidism, unspecified Lyubov Hickey, D.O. 03/22/2021 E78.2 Mixed hyperlipidemia Lyubov Taveras D.O. 03/22/2021 K21.9 Gastro-esophageal reflux disease without esophagitis Lyubov Hickey D.O. 03/22/2021 I12.9 Hypertensive chronic kidney disease with stage 1 through stage 4 chronic kidney disease, or unspecified chronic kidney disease Lyubov Law D.O. 03/22/2021 Z91.018 Allergy to other foods Lyubov Rivera D.O. 03/22/2021 Z91.040 Latex allergy status Lyubov Taveras, D.O. 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 03/22/2021 Z79.82 [facility] (current) use of aspir in Lyubov Hickey, D.O. 03/22/2021 N25.81 Secondary hyperparathyroidism of renal origin Lyubov Law D.O. 03/22/2021 F43.21 Adjustment disorder with depress ed mood Lyubov Hickey D.O. Plan of Treatment Future Appointment(s):* 06/28/2021 11:20 am - Lyubov Hickey D.O. at [facility] * 04/27/2021 11:20 am - Lyubov Hickey D.O. at [facility] Functional Status Description No Information Available Mental Status Description No Information Available Referrals Description No Information Available
--- OUTSIDE RECORDS SUMMARY | 2021-03-28 14:39 | CCD ---
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 Name Role Phone MINERVA-BRIAN, SALVADOR DO Unavailable Unavailable MINERVA-BRIAN, SALVADOR DO Unavailable Unavailable MINERVA-BRIAN, SALVADOR DO Unavailable Unavailable MINERVA-BRIAN, SALVADOR DO Unavailable Unavailable MINERVA-BRIAN, SALVADOR DO Unavailable Unavailable MINERVA-BRIAN, SALVADOR DO Unavailable Unavailable MINERVA-BRIAN, SALVADOR DO Unavailable Unavailable MINERVA-BRIAN, SALVADOR DO Unavailable Unavailable MINERVA-BRIAN, SALVADOR DO Unavailable Unavailable MINERVA-BRIAN, SALVADOR DO Unavailable Unavailable MINERVA-BRIAN, SALVADOR DO Unavailable Unavailable MINERVA-BRIAN, SALVADOR DO Unavailable Unavailable MINERVA-BRIAN, SALVADOR DO Unavailable Unavailable MINERVA-BRIAN, SALVADOR DO Unavailable Unavailable MINERVA-BRIAN, SALVADOR DO Unavailable Unavailable MINERVA-BRIAN, SALVADOR DO Unavailable Unavailable MINERVA-BRIAN, SALVADOR DO Unavailable Unavailable MINERVA-BRIAN, SALVADOR DO Unavailable Unavailable MINERVA-BRIAN, SALVADOR DO Unavailable Unavailable MINERVA-BRIAN, SALVADOR DO Unavailable Unavailable MINERVA-BRIAN, SALVADOR DO Unavailable Unavailable MINERVA-BRIAN, SALVADOR DO Unavailable Unavailable MINERVA-BRIAN, SALVADOR DO Unavailable Unavailable MINERVA-BRIAN, SALVADOR DO Unavailable Unavailable MINERVA-BRIAN, SALVADOR DO Unavailable Unavailable MINERVA-BRIAN, SALVADOR DO Unavailable Unavailable MINERVA-BRIAN, SALVADOR DO Unavailable Unavailable MINERVA-BRIAN, SALVADOR DO Unavailable Unavailable MINERVA-BRIAN, SALVADOR DO Unavailable Unavailable MINERVA-BRIAN, SALVADOR DO Unavailable Unavailable MINERVA-BRIAN, SALVADOR DO Unavailable Unavailable MINERVA-BRIAN, SALVADOR DO Unavailable Unavailable MINERVA-BRIAN, SALVADOR DO Unavailable Unavailable MINERVA-BRIAN, SALVADOR DO Unavailable Unavailable MINERVA-BRIAN, SALVADOR DO Unavailable Unavailable MINERVA-BRIAN, SALVADOR DO Unavailable Unavailable MINERVA-BRIAN, SALVADOR DO Unavailable Unavailable MINERVA-BRIAN, SALVADOR DO Unavailable Unavailable MINERVA-BRIAN, SALVADOR DO Unavailable Unavailable MINERVA-BRIAN, SALVADOR DO Unavailable Unavailable MINERVA-BRIAN, SALVADOR DO Unavailable Unavailable MINERVA-BRIAN, SALVADOR DO Unavailable Unavailable MINERVA-BRIAN, SALVADOR DO Unavailable Unavailable MINERVA-BRIAN, SALVADOR DO Unavailable Unavailable MINERVA-BRIAN, SALVADOR DO Unavailable Unavailable MINERVA-BRIAN, SALVADOR DO Unavailable Unavailable MINERVA-BRIAN, SALVADOR DO Unavailable Unavailable MINERVA-BRIAN, SALVADOR DO Unavailable Unavailable MINERVA-BRIAN, SALVADOR DO Unavailable Unavailable MINERVA-BRIAN, SALVADOR DO Unavailable Unavailable MINERVA-BRIAN, SALVADOR DO Unavailable Unavailable MINERVA-BRIAN, SALVADOR DO Unavailable Unavailable MINERVA-BRIAN, SALVADOR DO Unavailable Unavailable MINERVA-BRIAN, SALVADOR DO Unavailable Unavailable MINERVA-BRIAN, SALVADOR DO Unavailable Unavailable MINERVA-BRIAN, SALVADOR DO Unavailable Unavailable MINERVA-BRIAN, SALVADOR DO Unavailable Unavailable MINERVA-BRIAN, SALVADOR DO Unavailable Unavailable MINERVA-BRIAN, SALVADOR DO Unavailable Unavailable MINERVA-BRIAN, SALVADOR DO Unavailable Unavailable MINERVA-BRIAN, SALVADOR DO Unavailable Unavailable MINERVA-BRIAN, SALVADOR DO Unavailable Unavailable MINERVA-BRIAN, SALVADOR DO Unavailable Unavailable MINERVA-BRIAN, SALVADOR DO Unavailable Unavailable MINERVA-BRIAN, SALVADOR DO Unavailable Unavailable MINERVA-BRIAN, SALVADOR DO Unavailable Unavailable MINERVA-BRIAN, SALVADOR DO Unavailable Unavailable MINERVA-BRIAN, SALVADOR DO Unavailable Unavailable MINERVA-BRIAN, SALVADOR DO Unavailable Unavailable MINERVA-BRIAN, SALVADOR DO Unavailable Unavailable MINERVA-BRIAN, SALVADOR DO Unavailable Unavailable MINERVA-BRIAN, SALVADOR DO Unavailable Unavailable MINERVA-BRIAN, SALVADOR DO Unavailable Unavailable MINERVA-BRIAN, SALVADOR DO Unavailable Unavailable MINERVA-BRIAN, SALVADOR DO Unavailable Unavailable MINERVA-BRIAN, SALVADOR DO Unavailable Unavailable MINERVA-BRIAN, SALVADOR DO Unavailable Unavailable MINERVA-BRIAN, SALVADOR DO Unavailable Unavailable MINERVA-BRIAN, SALVADOR DO Unavailable Unavailable MINERVA-BRIAN, SALVADOR DO Unavailable Unavailable MINERVA-BRIAN, SALVADOR DO Unavailable Unavailable MINERVA-BRIAN, SALVADOR DO Unavailable Unavailable MINERVA-BRIAN, SALVADOR DO Unavailable Unavailable MINERVA-BRIAN, SALVADOR DO Unavailable Unavailable Mary Ellen, Ramesh PA Unavailable Unavailable Mary Ellen, Ramesh PA Unavailable Unavailable Mary Ellen, Ramesh PA Unavailable Unavailable Mary Ellen, Ramesh PA Unavailable Unavailable Mary Ellen, Ramesh PA Unavailable Unavailable Mary Ellen, Ramesh PA Unavailable Unavailable Mary Ellen, Ramesh PA Unavailable Unavailable Mary Ellen, Ramesh PA Unavailable Unavailable Mary Ellen, Ramesh PA Unavailable Unavailable Mary Ellen, Ramesh PA Unavailable Unavailable Mary Ellen, Ramesh PA Unavailable Unavailable Mary Ellen, Ramesh PA Unavailable Unavailable Mary Ellen, Ramesh PA Unavailable Unavailable Mary Ellen, Ramesh PA Unavailable Unavailable Mary Ellen, Ramesh PA Unavailable Unavailable Mary Ellen, Ramesh PA Unavailable Unavailable Mary Ellen, Ramesh PA Unavailable Unavailable Mary Ellen, Ramesh PA Unavailable Unavailable Mary Ellen, Ramesh PA Unavailable Unavailable Mary Ellen, Ramesh PA Unavailable Unavailable Mary Ellen, Ramesh PA Unavailable Unavailable Mary Ellen, Ramesh PA Unavailable Unavailable Mary Ellen, Ramesh PA Unavailable Unavailable Mary Ellen, Ramesh PA Unavailable Unavailable Mary Ellen, Ramesh PA Unavailable Unavailable Mary Ellen, Ramesh PA Unavailable Unavailable Mary Ellen, Ramesh PA Unavailable Unavailable Mary Ellen, Ramesh PA Unavailable Unavailable Mary Ellen, Ramesh PA Unavailable Unavailable Mary Ellen, Ramesh PA Unavailable Unavailable Mary Ellen, Ramesh PA Unavailable Unavailable Mary Ellen, Ramesh PA Unavailable Unavailable Mary Ellen, Ramesh PA Unavailable Unavailable Mary Ellen, Ramesh PA Unavailable Unavailable Mary Ellen, Ramesh PA Unavailable Unavailable Mary Ellen, Ramesh PA Unavailable Unavailable Mary Ellen, Ramesh PA Unavailable Unavailable Mary Ellen, Ramesh PA Unavailable Unavailable Mary Ellen, Ramesh PA Unavailable Unavailable Mary Ellen, Ramesh PA Unavailable Unavailable Mary Ellen, Ramesh PA Unavailable Unavailable Mary Ellen, Ramesh PA Unavailable Unavailable Mary Ellen, Ramesh PA Unavailable Unavailable Mary Ellen, Ramesh PA Unavailable Unavailable Mary Ellen, Ramesh PA Unavailable Unavailable Mary Ellen, Ramesh PA Unavailable Unavailable Mary Ellen, Ramesh PA Unavailable Unavailable Mary Ellen, Ramesh PA Unavailable Unavailable Mary Ellen, Ramesh PA Unavailable Unavailable Mary Ellen, Ramesh PA Unavailable Unavailable Mary Ellen, Ramesh PA Unavailable Unavailable Mary Ellen, Ramesh PA Unavailable Unavailable Mary Ellen, Ramesh PA Unavailable Unavailable Mary Ellen, Ramesh PA Unavailable Unavailable JULIO, MAQBOOL BERTRAND MD Unavailable Unavailable JULIO, MAQBOOL BERTRAND MD Unavailable Unavailable JULIO, MAQBOOL BERTRAND MD Unavailable Unavailable JULIO, MAQBOOL BERTRAND MD Unavailable Unavailable JULIO, MAQBOOL BERTRAND MD Unavailable Unavailable JULIO, MAQBOOL BERTRAND MD Unavailable Unavailable JULIO, MAQBOOL BERTRAND MD Unavailable Unavailable JULIO, MAQBOOL BERTRAND MD Unavailable Unavailable JULIO, MAQBOOL BERTRAND MD Unavailable Unavailable JULIO, MAQBOOL BERTRAND MD Unavailable Unavailable JULIO, MAQBOOL BERTRAND MD Unavailable Unavailable JULIO, MAQBOOL BERTRAND MD Unavailable Unavailable JULIO, MAQBOOL BERTRAND MD Unavailable Unavailable JULIO, MAQBOOL BERTRAND MD Unavailable Unavailable JULIO, MAQBOOL BERTRAND MD Unavailable Unavailable JULIO, MAQBOOL BERTRAND MD Unavailable Unavailable JULIO, MAQBOOL BERTRAND MD Unavailable Unavailable JULIO, MAQBOOL BERTRAND MD Unavailable Unavailable JULIO, MAQBOOL BERTRAND MD Unavailable Unavailable JULIO, MAQBOOL BERTRAND MD Unavailable Unavailable JULIO, MAQBOOL BERTRAND MD Unavailable Unavailable JULIO, MAQBOOL BERTRAND MD Unavailable Unavailable JULIO, MAQBOOL BERTRAND MD Unavailable Unavailable JULIO, MAQBOOL BERTRAND MD Unavailable Unavailable JULIO, MAQBOOL BERTRAND MD Unavailable Unavailable JULIO, MAQBOOL BERTRAND MD Unavailable Unavailable JULIO, MAQBOOL BERTRAND MD Unavailable Unavailable JULIO, MAQBOOL BERTRAND MD Unavailable Unavailable JULIO, MAQBOOL BERTRAND MD Unavailable Unavailable JULIO, MAQBOOL BERTRAND MD Unavailable Unavailable JULIO, MAQBOOL BERTRAND MD Unavailable Unavailable JULIO, MAQBOOL BERTRAND MD Unavailable Unavailable JULIO, MAQBOOL BERTRAND MD Unavailable Unavailable JULIO, MAQBOOL BERTRAND MD Unavailable Unavailable JULIO, MAQBOOL BERTRAND MD Unavailable Unavailable JULIO, MAQBOOL BERTRAND MD Unavailable Unavailable JULIO, MAQBOOL BERTRAND MD Unavailable Unavailable JULIO, MAQBOOL BERTRAND MD Unavailable Unavailable JULIO, MAQBOOL BERTRAND MD Unavailable Unavailable JULIO, MAQBOOL BERTRAND MD Unavailable Unavailable JULIO, MAQBOOL BERTRAND MD Unavailable Unavailable JULIO, MAQBOOL BERTRAND MD Unavailable Unavailable JULIO, MAQBOOL BERTRAND MD Unavailable Unavailable JULIO, MAQBOOL BERTRAND MD Unavailable Unavailable JULIO, MAQBOOL BERTRAND MD Unavailable Unavailable JULIO, MAQBOOL BERTRAND MD Unavailable Unavailable JULIO, MAQBOOL BERTRAND MD Unavailable Unavailable JULIO, MAQBOOL BERTRAND MD Unavailable Unavailable JULIO, MAQBOOL BERTRAND MD Unavailable Unavailable JULIO, MAQBOOL BERTRAND MD Unavailable Unavailable JULIO, MAQBOOL BERTRAND MD Unavailable Unavailable JULIO, MAQBOOL BERTRAND MD Unavailable Unavailable JULIO, MAQBOOL BERTRAND MD Unavailable Unavailable JULIO, MAQBOOL BERTRAND MD Unavailable Unavailable JULIO, MAQBOOL BERTRAND MD Unavailable Unavailable JULIO, MAQBOOL BERTRAND MD Unavailable Unavailable JULIO, MAQBOOL BERTRAND MD Unavailable Unavailable JULIO, MAQBOOL BERTRAND MD Unavailable Unavailable JULIO, MAQBOOL BERTRAND MD Unavailable Unavailable JULIO, MAQBOOL BERTRAND MD Unavailable Unavailable JULIO, MAQBOOL BERTRAND MD Unavailable Unavailable JULIO, MAQBOOL BERTRAND MD Unavailable Unavailable JULIO, MAQBOOL BERTRAND MD Unavailable Unavailable JULIO, MAQBOOL BERTRAND MD Unavailable Unavailable JULIO, MAQBOOL BERTRAND MD Unavailable Unavailable JULIO, MAQBOOL BERTRAND MD Unavailable Unavailable JULIO, MAQBOOL BERTRAND MD Unavailable Unavailable JULIO, MAQBOOL BERTRAND MD Unavailable Unavailable JULIO, MAQBOOL BERTRAND MD Unavailable Unavailable JULIO, MAQBOOL BERTRAND MD Unavailable Unavailable JULIO, MAQBOOL BERTRAND MD Unavailable Unavailable JULIO, MAQBOOL BERTRAND MD Unavailable Unavailable JULIO, MAQBOOL BERTRAND MD Unavailable Unavailable JULIO, MAQBOOL BERTRAND MD Unavailable Unavailable JULIO, MAQBOOL BERTRAND MD Unavailable Unavailable JULIO, MAQBOOL BERTRAND MD Unavailable Unavailable JULIO, MAQBOOL BERTRAND MD Unavailable Unavailable JULIO, MAQBOOL BERTRAND MD Unavailable Unavailable Milla Martinez MD Unavailable Unavailable Milla Martinez MD Unavailable Unavailable Milla Martinez MD Unavailable Unavailable Milla Martinez MD Unavailable Unavailable Milla Martinez MD Unavailable Unavailable Milla Martinez MD Unavailable Unavailable Milla Martinez MD Unavailable Unavailable Milla Martinez MD Unavailable Unavailable Milla Martinez MD Unavailable Unavailable Milla Martinez MD Unavailable Unavailable Milla Martinez MD Unavailable Unavailable Milla Martinez MD Unavailable Unavailable Milla Martinez MD Unavailable Unavailable Milla Martinez MD Unavailable Unavailable Milla Martinez MD Unavailable Unavailable Milla Martinez MD Unavailable Unavailable Milla Martinez MD Unavailable Unavailable Milla Martinez MD Unavailable Unavailable Milla Martinez MD Unavailable Unavailable Milla aMrtinez MD Unavailable Unavailable Milla Martinez MD Unavailable Unavailable Milla Martinez MD Unavailable Unavailable Milla Martinez MD Unavailable Unavailable Milla Martinez MD Unavailable Unavailable Milla Martinez MD Unavailable Unavailable Milla Martinez MD Unavailable Unavailable Milla Martinez MD Unavailable Unavailable Milla Martinez MD Unavailable Unavailable Michelle, F Evan MD Unavailable Unavailable Michelle, F Evan MD Unavailable Unavailable Michelle, F Evan MD Unavailable Unavailable Michelle, F Evan MD Unavailable Unavailable Michelle, F Evan MD Unavailable Unavailable Michelle, F Evan MD Unavailable Unavailable Michelle, F Evan MD Unavailable Unavailable Michelle, F Evan MD Unavailable Unavailable Michelle, F Evan MD Unavailable Unavailable Michelle, F Evan MD Unavailable Unavailable Michelle, F Evan MD Unavailable Unavailable Michelle, F Evan MD Unavailable Unavailable Michelle, F Evan MD Unavailable Unavailable Michelle, F Evan MD Unavailable Unavailable NOT, SPECIFIED Unavailable Unavailable Re-disclosure Warning The records that you are about to access may contain information from federally-assisted alcohol or drug abuse programs. If such information is present, then the following federally mandated warning applies: This information has been disclosed to you from records protected by federal confidentiality rules (42 CFR part 2). The federal rules prohibit you from making any further disclosure of this information unless further disclosure is expressly permitted by the written consent of the person to whom it pertains or as otherwise permitted by 42 CFR part 2. A general authorization for the release of medical or other information is NOT sufficient for this purpose. The Federal rules restrict any use of the information to criminally investigate or prosecute any alcohol or drug abuse patient.The records that you are about to access may contain highly sensitive health information, the redisclosure of which is protected by Article 27-F of the [facility] Public Health law. If you continue you may have access to information: Regarding HIV / AIDS; Provided by facilities licensed or operated by the [facility] Office of Mental Health; or Provided by the [facility] Office for People With Developmental Disabilities. If such information is present, then the following [facility] mandated warning applies: This information has been disclosed to you from confidential records which are protected by state law. State law prohibits you from making any further disclosure of this information without the specific written consent of the person to whom it pertains, or as otherwise permitted by law. Any unauthorized further disclosure in violation of state law may result in a fine or intermediate sentence or both. A general authorization for the release of medical or other information is NOT sufficient authorization for further disc losure. Family History Family Member Name Family Member Gender Family Member Status Date o f Status Description Data Source(s) Unknown Condition [facility] Unknown Male Problem [facility] Unknown Male Problem [facility] ([facility]) Encounters Encounter Providers Location Date Indications Data Source(s ) Outpatient Attender: SALVADOR LEE [facility] 03/22/2021 11:00:00 AM EDT [facility] ([facility]) Outpatient Attender: SALVADOR LEE [facility] 09/12/2020 02:00:00 PM EDT [facility] ([facility]) Outpatient Attender: BERTRAND RATLIFF [facility] 05/31 10:30:00 AM EST [facility] ([facility]) Outpatient Attender: Ramesh PERALTA [facility] 04/28/2020 12:20:00 PM EST [facility] ([facility]) Outpatient Attender: Evan Martinez MDConsultant: SPECIFIED N OT 03/31/2020 10:44:00 AM EST - 03/31/2020 10:44:[address] [facility] Outpatient Attender: BERTRAND RATLIFF MD Medical Building 03/29 10:30:00 AM EST [facility] ([facility]) Immunizations Vaccine Date Status Description Data Source(s) COVID-19 VACCINE Moderna 07/27/2020 12:00:00 AM EST completed [facility] Vaccine Series Complete: YESThis Data wa s Submitted to [facility] Via [facility]. COVID-19 VACCINE Moderna 06/29/2020 12:00:00 AM EST completed [place] Vaccine Series Complete: NOThis Data was Submitted to [facility] Via [employer]. Medications Medication Brand Name Start Date Product Form Dose Route Admi nistrative Instructions Pharmacy Instructions Status Indications Reaction Description Data Source(s) Levothyroxine Sodium 0.05 MG Oral Tablet Levothyroxine Sodiu m 09/12/2020 12:00:00 AM EDT ORAL active M [facility] ([facility]) Cholecalciferol 1000 UNT Oral Tablet Vitamin D 05/31/2020 12:00:00 A M EST ORAL active [facility] ([facility]) Estrogens, Conjugated (SHELTER) 0.625 MG Oral Tablet [Premarin] Premarin 05/31/2020 12:00:00 AM EST active M [facility] ([facility]) Glucosamine Sulfate 500 MG Oral Capsule Glucosamine 05/31/19 12:00:00 AM EST active [facility] ( [facility]) MAGNESIUM GLUCONATE 500 MG Oral Tablet Magnesium Gluconate 0 05/31/2020 12:00:00 AM EST active [facility] ([facility]) Aspirin 81 MG Delayed Release Oral Tablet Aspirin 81 2020 12:00:00 AM EST ORAL active [facility] ( [facility]) Multi Vitamin 05/31/2020 12:00:00 AM EST acti ve [facility] ([facility]) Insurance Providers Payer name Policy type / Coverage type Policy ID Covered libertarian ID Covered libertarian's relationship to cottrell Policy [place] Plan Information MEDICARE A [id number] Self [id number] A MEDICARE 4 [id number] A MEDICARE A [id number] Self [id number] A MEDICARE A [id number] Self [id number] MEDICARE [id number] SP [id number] A MEDICARE [id number] SP [id number] MEDICARE [id number] SP [id number] COMMERCIAL GENERIC U [id number] Self [id number] [facility] EMP U [id number] Self [id number] [facility] DIST [id number] SP [id number] [facility] DIST [id number] SP [id number] [facility] Commercial [id number] Self [id number] Medicare [place] Medicare Primary [id number] Self 10 [id number] [facility] [employer] Commercial [id number] Self [id number] Medicare [place] Medicare Primary [id number] Self [id number] Medicare (Part B) Medicare Primary [id number] Self 1 [id number] [facility] Medieast lynne Part B [id number] Self [id number] Medicare (Part B) Medicare Primary [id number] Self 1 [id number] Medicare (Part B) Medicare Primary [id number] Self 1 [id number] [facility] Commercial [id number] Self [id number] Medicare [place] Medicare Primary [id number] Self [id number] [facility] DIST [id number] SP [id number] MEDICARE [id number] SP [id number] A [facility] 2 [id number] SELFPAY 5 UNAVAILABLE 1 UNAVAILA BLE MEDICARE -O/P [id number] 18 [id number] [facility] INSURANCE-O/P [id number] 18 [id number] [employer] 306/806 [id number] SP [id number] O UNAVAILABLE UNAVAILA BLE [place] 306/806 [id number] SP [id number] [facility] [id number] MEDICARE PART A [facility] [id number] 18 [id number] [place] MEDICARE C [id number] S [id number] [facility] [place] PPO [id number] SP [id number] [facility] [place] Commercial [id number] Self [id number] Medicare [place] Medicare Primary [id number] Self [id number] [facility] [place] [id number] Self [id number] Medicare [place] Medicare Primary [id number] Self [id number] Problems, Conditions, and Diagnoses No Information Surgeries/Procedures Procedure Description Date Indications Data Source(s) OFFICE OUTPATIENT VISIT 25 MINUTES 03/22/2021 12:00:00 AM EDT [facility] ([facility]) OFFICE OUTPATIENT VISIT 25 MINUTES 09/12/2020 12:00:00 AM EDT [facility] ([facility]) Results ID Date Data Source [id number] 03/04/2021 04:58:00 PM EDT [facility] ([facility]) Name Value Range Interpretation Code Description Data Michaela rce(s) Supporting Document(s) Ethanol [Mass/volume] in Serum or Plasma Laboratory test result 0.000-0.010 Normal (applies to non-numeric results) [facility] ([facility]) Acetaminophen [Mass/volume] in Serum or Plasma Laboratory test r esult 10.0-30.0 Below low normal [facility] ([facility]) Salicylates [Mass/volume] in Serum or Plasma Laboratory test res ult 5.0-30.0 Below low normal [facility] ([facility]) Thyrotropin [Units/volume] in Serum or Plasma 1.890 uIU/ML 0. 358-3.740 Normal (applies to non-numeric results) [facility] ([facility]) ID Date Data Source [id number] 03/04/2021 04:58:00 PM EDT [facility] ([facility]) Name Value Range Interpretation Code Description Data Michaela rce(s) Supporting Document(s) Glucose, Fasting 94 mg/dL 70-100 Normal (applies to non-numeric results) [facility] ([facility]) Blood Urea Nitrogen 48 mg/dL 7-18 Above high normal [facility] Sodium Level 139 meq/L 136-145 Normal (applies to non-numeric res ults) [facility] ([facility]) Glomerular Filtration Rate 25.5 Below low normal [facility] ([facility]) <content>Units are mL/min/1.73 m2</content>
<content></content>
<content>Chronic Kidney Disease Staging per NKF:</content>
<content></content>
<content>Stage I & II GFR >=60 Normal to Mildly Decreased</content>
<content>Stage III GFR 30- 59 Moderately Decreased</content>
<content>Stage IV GFR 15-29 Severely Decreased</content>
<content>Stage V GFR <15 Very Little GFR Left</content>
<content>ESRD GFR <15 on CARDIAC CATHETERIZATION TECHNICIAN</content>
<content></content> Creatinine For GFR 2.03 mg/dL 0.55-1.30 Above high normal [facility] ([facility]) Potassium Serum 3.6 meq/L 3.5-5.1 Normal (applies to non-numeric results) [facility] ([facility]) Chloride Level 104 meq/L 98-107 Normal (applies to non-numeric r esults) [facility] ([facility]) Calcium Level 9.8 mg/dL 8.8-10.2 Normal (applies to non-numeric re sults) [facility] ([facility]) Anion Gap 9 meq/L 8-16 Normal (applies to non-numeric resul ts) [facility] ([facility]) Carbon Dioxide Level 26 meq/L 21-32 Normal (applies to non-num hussein results) [facility] ([facility]) ID Date Data Source [id number] 03/04/2021 04:58:00 PM [facility]T [facility] Name Value Range Interpretation Code Description Data Michaela rce(s) Supporting Document(s) Ast/Sgot 18 U/L 7-37 Normal (applies to non-numeric resul ts) [facility] ([facility]) Alt/SGPT 22 U/L 12-78 Normal (applies to non-numeric resul ts) [facility] ([facility]) Alkaline Phosphatase 46 U/L 45-117 Normal (applies to non-num hussein results) [facility] ([facility]) Bilirubin,Direct Laboratory test result 0.0-0.2 Normal ( applies to non-numeric results) [facility] ([facility]) Bilirubin,Total 0.2 mg/dL 0.2-1.0 Normal (applies to non-numeric results) [facility] ([facility]) Total Protein 7.1 GM/DL 6.4-8.2 Normal (applies to non-numeric re sults) [facility] ([facility]) Albumin 3.4 GM/DL 3.2-5.2 Normal (applies to non-numeric resul ts) [facility] ([facility]) Albumin/Globulin Ratio 0.9 1.2-2.2 Below low normal [facility] ([facility]) ID Date Data Source [id number] 03/04/2021 04:58:00 PM EDT [facility]) Name Value Range Interpretation Code Description Data Michaela rce(s) Supporting Document(s) Barbiturates Urine Laboratory test result Normal (applies to non-numeric results) [facility] ([facility]) Amphetamines Level Urine Laboratory test result Normal (applies to non-numeric results) [facility] ([facility]) Benzodiazepines Urine Laboratory test result Nor mal (applies to non-numeric results) [facility] ([facility]) Cocaine Metabolite Urine Laboratory test result Normal (applies to non-numeric results) [facility] ([facility]) Cannabinoids Urine Laboratory test result Normal (applies to non-numeric results) [facility] ([facility]) Methadone Urine Laboratory test result Normal (a pplies to non-numeric results) [facility] ([facility]) Opiates Urine Laboratory test result Normal (applies t o non-numeric results) [facility] ([facility]) Phencyclidine Urine Laboratory test result Deedee l (applies to non-numeric results) [facility] ([facility]) ALL PRESUMPTIVE POSITIVE FINDINGS AR E UNCONFIRMED THRESHOLD IN NG/ML AMPHETAMINES/METHAMPHET 1000 BARBITURATES [...] CLOSELY RELATED COMPOUNDS PLEASE CALL THE LAB. ID Date Data Source [id number] 03/04/2021 04:58:00 PM EDT [facility] ([facility]) Name Value Range Interpretation Code Description Data Michaela rce(s) Supporting Document(s) Lipase [Enzymatic activity/volume] in Serum or Plasma 167 U/L 73-393 Normal (applies to non-numeric results) [facility] ([facility]) ID Date Data Source [id number] 03/04/2021 04:58:00 PM EDT [facility]) Name Value Range Interpretation Code Description Data Michaela rce(s) Supporting Document(s) Red Blood Count 4.16 10 4.00-5.40 Normal (applies to non-numeric results) [facility] ([facility]) White Blood Count 9.6 10 4.0-10.0 Normal (applies to non-numeri c results) [facility] ([facility]) Hematocrit 37.6 % 36.0-47.0 Normal (applies to non-numeric resul ts) [facility] ([facility]) Hemoglobin 12.1 g/dL 12.0-15.5 Normal (applies to non-numeric resul ts) [facility] ([facility]) Mean Corpuscular Volume 90.4 fl 80.0-96.0 Normal ( applies to non-numeric results) [facility] ([facility]) Mean Corpuscular HGB Conc 32.2 g/dL 32.0-36.5 Normal (applies to non-numeric results) [facility] ([facility]) Mean Corpuscular Hemoglobin 29.1 pg 27.0-33.0 Norm al (applies to non-numeric results) [facility] ([facility]) Platelet Count, Automated 369 10 150-450 Normal (applies to non-numeric results) [facility] ([facility]) Red Cell Distribution Width 14.5 % 11.5-14.5 Norm al (applies to non-numeric results) [facility] ([facility]) Nucleated Red Blood Cell % 0.0 % 0-0 Normal (applies to n on-numeric results) [facility] ([facility]) ID Date Data Source [id number] 08/24/2020 10:57:00 AM EDT [facility] Name Value Range Interpretation Code Description Data Michaela rce(s) Supporting Document(s) Thyroid Stimulating Hormone 5.120 uIU/ML 0.358-3.740 Above high [place] [facility] ([facility]) Free T4 0.92 ng/dL 0.76-1.46 Normal (applies to non-numeric resul ts) [facility] ([facility]) ID Date Data Source [id number] 08/24/2020 10:57:00 AM EDT [facility]) Name Value Range Interpretation Code Description Data Michaela rce(s) Supporting Document(s) Red Blood Count 3.84 10 4.00-5.40 Below low normal [facility] ([facility]) White Blood Count 6.9 10 4.0-10.0 Normal (applies to non-numeri c results) [facility] ([facility]) Hemoglobin 12.0 g/dL 12.0-15.5 Normal (applies to non-numeric resul ts) [facility] ([facility]) Mean Corpuscular Volume 95.3 fl 80.0-96.0 Normal ( applies to non-numeric results) [facility] ([facility]) Hematocrit 36.6 % 36.0-47.0 Normal (applies to non-numeric resul ts) [facility] ([facility]) Mean Corpuscular HGB Conc 32.8 g/dL 32.0-36.5 Normal (applies to non-numeric results) [facility] ([facility]) Mean Corpuscular Hemoglobin 31.3 pg 27.0-33.0 Norm al (applies to non-numeric results) [facility] ([facility]) Red Cell Distribution Width 12.6 % 11.5-14.5 Norm al (applies to non-numeric results) [facility] ([facility]) Neutrophils % 59.8 % 36.0-66.0 Normal (applies to non-numeric re sults) [facility] ([facility]) Platelet Count, Automated 286 10 150-450 Normal (applies to non-numeric results) [facility] ([facility]) Lymph % 23.9 % 24.0-44.0 Below low normal [facility] ( [facility]) [place] % 12.0 % 2.0-8.0 Above high normal [facility] ([facility]) Eos % 2.9 % 0.0-3.0 Normal (applies to non-numeric resul ts) [facility] ([facility]) Baso % 0.7 % 0.0-1.0 Normal (applies to non-numeric resul ts) [facility] ([facility]) Nucleated Red Blood Cell % 0.0 % 0-0 Normal (applies to n on-numeric results) [facility] ([facility]) Neutrophils # 4.1 10 1.5-8.5 Normal (applies to non-numeric re sults) [facility] ([facility]) Immature Granulocyte % 0.7 % 0-3.0 Normal (applies to non-n umeric results) [facility] ([facility]) Lymph # 1.7 10 1.5-5.0 Normal (applies to non-numeric resul ts) [facility] ([facility]) [place] # 0.8 10 0.0-0.8 Normal (applies to non-numeric resul ts) [facility] ([facility]) Baso # 0.1 10 0.0-0.2 Normal (applies to non-numeric resul ts) [facility] ([facility]) Eos # 0.2 10 0.0-0.5 Normal (applies to non-numeric resul ts) [facility] ([facility]) ID Date Data Source [id number] 08/24/2020 10:57:00 AM EDT [facility] ([facility]) Name Value Range Interpretation Code Description Data Michaela rce(s) Supporting Document(s) Triglycerides Level 147 mg/dL Normal (applies to non-nume karuna results) [facility] ([facility]) HDL Cholesterol 67 mg/dL Normal (applies to non-numeric results) [facility] ([facility]) Cholesterol Level 201 mg/dL Above high normal [facility] ([facility]) LDL Cholesterol 105 mg/dL Above high normal [facility] ([facility]) Cholesterol Risk Ratio 3.000 Normal (applies to non-n umeric results) [facility] ([facility]) Non-HDL-C 134 mg/dL Normal (applies to non-numeric resul ts) [facility] ([facility]) ID Date Data Source [id number] 08/24/2020 10:57:00 AM EDT [facility] ([facility]) Name Value Range Interpretation Code Description Data Michaela rce(s) Supporting Document(s) Urate [Mass/volume] in Serum or Plasma 6.7 mg/dL 2.6-6.0 Above hi gh normal [facility] ([facility]) ID Date Data Source [id number] 08/24/2020 10:57:00 AM EDT [facility] ([facility]) Name Value Range Interpretation Code Description Data Michaela rce(s) Supporting Document(s) Glucose, Fasting 91 mg/dL 70-100 Normal (applies to non-numeric results) [facility] ([facility]) Creatinine For GFR 1.77 mg/dL 0.55-1.30 Above high normal [facility] ([facility]) Blood Urea Nitrogen 43 mg/dL 7-18 Above high normal [facility] ([facility]) Sodium Level 139 meq/L 136-145 Normal (applies to non-numeric res ults) [facility] ([facility]) Glomerular Filtration Rate 29.9 Below low normal [facility] ([facility]) <content>Units are mL/min/1.73 m2</content>
<content></content>
<content>Chronic Kidney Disease Staging per NKF:</content>
<content></content>
<content>Stage I & II GFR >=60 Normal to Mildly Decreased</content>
<content>Stage III GFR 30- 59 Moderately Decreased</content>
<content>Stage IV GFR 15-29 Severely Decreased</content>
<content>Stage V GFR <15 Very Little GFR Left</content>
<content>ESRD GFR <15 on CARDIAC CATHETERIZATION TECHNICIAN</content>
<content></content> Potassium Serum 3.9 meq/L 3.5-5.1 Normal (applies to non-numeric results) [facility] ([facility]) Chloride Level 107 meq/L 98-107 Normal (applies to non-numeric r esults) [facility] ([facility]) Carbon Dioxide Level 25 meq/L 21-32 Normal (applies to non-num hussein results) [facility] Anion Gap 7 meq/L 8-16 Below low normal [facility] ( [facility]) Ast/Sgot 18 U/L 7-37 Normal (applies to non-numeric resul ts) [facility] ([facility]) Calcium Level 9.1 mg/dL 8.8-10.2 Normal (applies to non-numeric re sults) [facility] ([facility]) Alt/SGPT 21 U/L 12-78 Normal (applies to non-numeric resul ts) [facility] ([facility]) Bilirubin,Total 0.2 mg/dL 0.2-1.0 Normal (applies to non-numeric results) [facility] ([facility]) Alkaline Phosphatase 49 U/L 45-117 Normal (applies to non-num hussein results) [facility] ([facility]) Albumin/Globulin Ratio 1.2 1.2-2.2 Normal (applies to non-n umeric results) [facility] ([facility]) Albumin 3.6 GM/DL 3.2-5.2 Normal (applies to non-numeric resul ts) [facility] ([facility]) Total Protein 6.7 GM/DL 6.4-8.2 Normal (applies to non-numeric re sults) [facility] ([facility]) Procedure Social History Code Duration Value Status Description Data Source(s ) Smoking 03/22/2021 12:00:00 AM EDT Patient has never smoked co mpleted Patient has never smoked [facility] ([facility]) Vital Signs ID Date Data Source UNK Name Value Range Interpretation Code Description Data Source(s) Body temperature 96.9 [degF] 96.9 [degF] [facility] ([facility]) Oxygen saturation in Arterial blood by Pulse oximetry 98 % 98 % [facility]) [place] body weight 105 [lb_av] 105 [lb_av] [facility] ([facility]) Systolic blood pressure 138 mm[Hg] 138 mm[Hg] [facility] ([facility]) Diastolic blood pressure 78 mm[Hg] 78 mm[Hg] [facility]) Body height 61.0 [in_i] 61.0 [in_i] [facility] ([facility]) 5'1" Body weight 180.38 [lb_av] 180.38 [lb_av] [facility] ([facility]) Body mass index (BMI) [Ratio] 34.1 kg/m2 34.1 k g/m2 [facility] ([facility]) Heart rate 94 /min 94 /min [facility] ([facility]) Respiratory rate 18 /min 18 /min [facility] ( [facility]) Body height 66 [in_i] 66 [in_i] [facility] ([facility]) 5'6" Body weight 179.00 [lb_av] 179.00 [lb_av] [facility] ([facility]) Body mass index (BMI) [Ratio] 28.9 kg/m2 28.9 k g/m2 [facility] ([facility]) Body temperature 97.5 [degF] 97.5 [degF] [facility] ([facility]) Systolic blood pressure 160 mm[Hg] 160 mm[Hg] [facility] ([facility]) Diastolic blood pressure 76 mm[Hg] 76 mm[Hg] [facility] ([facility]) Heart rate 88 /min 88 /min [facility] ([facility]) Oxygen saturation in Arterial blood by Pulse oximetry 96 % 96 % [facility] ([facility]) Systolic blood pressure 136 mm[Hg] 136 mm[Hg] [facility] ([facility]) Respiratory rate 18 /min 18 /min [facility] ( [facility]) Diastolic blood pressure 74 mm[Hg] 74 mm[Hg] [facility] ([facility]) Body temperature 97.7 [degF] 97.7 [degF] [facility] ([facility]) Oxygen saturation in Arterial blood by Pulse oximetry 97 % 97 % [facility] ([facility]) [place] body weight 105 [lb_av] 105 [lb_av] [facility] ([facility]) Body height 61.0 [in_i] 61.0 [in_i] [facility] ([facility]) 5'1" Body weight 178.00 [lb_av] 178.00 [lb_av] [facility] ([facility]) Body mass index (BMI) [Ratio] 33.6 kg/m2 33.6 k g/m2 [facility] ([facility]) Heart rate 88 /min 88 /min [facility] ([facility]) Body height 66 [in_i] 66 [in_i] [facility] ([facility]) 5'6" Body weight 164.00 [lb_av] 164.00 [lb_av] [facility] ([facility]) Body mass index (BMI) [Ratio] 26.5 kg/m2 26.5 k g/m2 [facility] ([facility]) Body temperature 97.3 [degF] 97.3 [degF] [facility] ([facility]) Systolic blood pressure 134 mm[Hg] 134 mm[Hg] [facility] ([facility]) Diastolic blood pressure 76 mm[Hg] 76 mm[Hg] [facility] ([facility]) Heart rate 80 /min 80 /min [facility] ([facility]) Oxygen saturation in Arterial blood by Pulse oximetry 96 % 96 % [facility] ([facility]) Body mass index (BMI) [Ratio] 34.6 kg/m2 34.6 k g/m2 [facility] ([facility]) Heart rate 71 /min 71 /min [facility]) Systolic blood pressure 140 mm[Hg] 140 mm[Hg] [facility] 148/70 recheck Diastolic blood pressure 72 mm[Hg] 72 mm[Hg] [facility] ([facility]) 148/70 recheck Body height 61.0 [in_i] 61.0 [in_i] [facility] ([facility]) 5'1" Body weight 183.25 [lb_av] 183.25 [lb_av] [facility] ([facility]) Respiratory rate 18 /min 18 /min [facility] ( [facility]) Body temperature 98.5 [degF] 98.5 [degF] [facility] ([facility]) Oxygen saturation in Arterial blood by Pulse oximetry 98 % 98 % [facility] ([facility]) [place] body weight 105 [lb_av] 105 [lb_av] [facility] ([facility]) Oxygen saturation in Arterial blood by Pulse oximetry 97 % 97 % [facility] ([facility]) Body height 66 [in_i] 66 [in_i] [facility] ([facility]) 5'6" Body weight 173.00 [lb_av] 173.00 [lb_av] [facility] ([facility]) Body mass index (BMI) [Ratio] 27.9 kg/m2 27.9 k g/m2 [facility] ([facility]) Body temperature 97.3 [degF] 97.3 [degF] [facility] ([facility]) Systolic blood pressure 148 mm[Hg] 148 mm[Hg] [facility] ([facility]) Diastolic blood pressure 77 mm[Hg] 77 mm[Hg] [facility] ([facility]) Heart rate 74 /min 74 /min [facility] ([facility] Ratliff [facility])
--- OUTSIDE RECORDS SUMMARY | 2021-03-28 14:39 | CCD | Continuity of Care Document ---
Author Author Alka HICKEY D.O. Organization Unknown Address [id number] [place] [address] Phone [phone] Care Team Providers Care Orderly Name Role Phone Lyubov Hickey D.O. AUTM Dale Leontia Choi AUTM [phone] Wilmar Fiore M.D. AUTM [phone] [facility] AUTM [phone] Problems Active Problems Provider Date Essential hypertension [...] as needed every 6 hours Unknown Nystatin [id number]/GM Cream apply small amount to rash around anus externally twice daily as needed (ok to mix with vaseline) Unknown Premarin 0.625mg Tablets 1 by mouth every day Unknown Cytra-3 [phone] Syrup Unknown Magnesium Gluconate 500mg Tablets Unknown [...] CPT Code Status Date Vaccine Lot # [id number] Given 04/22/2019 Influenza Virus Vaccine, Quadrivalent, Split, Preservative Free [id number] Given 04/22/2019 Influenza Virus Vaccine, Quadrivalent, Split, Preservative Free [id number] Vital Signs Date Vital Result Comment 03/22/2021 11:15am BP Systolic 138 mmHg BP Diastolic 78 mmHg Height 61.0 inches 5'1" Weight 180.38 lb BMI (Body Mass Index) 34.1 kg/m2 Heart Rate 94 /min Respiratory Rate 18 /min Body Temperature 96.9 F O2 % BldC Oximetry 98 % [place] Body Weight 105 lb 09/12/2020 1:53pm BP Systolic 136 mmHg BP Diastolic 74 mmHg Height 61.0 inches 5'1" Weight 178.00 lb BMI (Body Mass Index) 33.6 kg/m2 Heart Rate 88 /min Respiratory Rate 18 /min Body Temperature 97.7 F O2 % BldC Oximetry 97 % [place] Body Weight 105 lb Results Test Acquired Date Facility Test Result H/L Range Note Complete Blood Count 03/04/2021 [facility] Outpatient Test ing (Registration) [address] [place] [address] [phone] White Blood Count 9.6 10 Normal 4.0-10.0 [...] % Normal 0-0 Laboratory test finding 03/04/2021 [facility] Outpatient T esting (Registration) [address] [place], [place] [id number] [phone] Lipase 167 U/L Normal 73-393 Drug Eval Toxicology ED Only 03/04/2021 [facility] Outpati ent Testing (Registration) [address] [place] [address] [phone] Amphetamines Level Urine NEGATIVE Normal Negativ e Barbiturates Urine NEGATIVE Normal Negative Benzodiazepines Urine NEGATIVE Normal Negative Cannabinoids Urine NEGATIVE Normal Negative Cocaine Metabolite Urine NEGATIVE Normal Negative Methadone Urine NEGATIVE Normal Negative Opiates Urine NEGATIVE Normal Negative Phencyclidine Urine NEGATIVE Normal Negative 1 Liver Profile 03/04/2021 [facility] Outpatient Testi ng (Registration) [address] [place] [address] [phone] Ast/Sgot 18 U/L Normal 7-37 Alt/SGPT 22 U/L Normal 12-78 Alkaline Phosphatase 46 U/L Normal 45-117 Bilirubin,Total 0.2 mg/dL Normal 0.2-1.0 Bilirubin,Direct < 0.1 mg/dL Normal 0.0-0.2 Total Protein 7.1 GM/DL Normal 6.4-8.2 Albumin 3.4 GM/DL Normal 3.2-5.2 Albumin/Globulin Ratio 0.9 Low 1.2-2.2 Basic Metabolic Profile 03/04/2021 [facility] Outpatient T esting (Registration) [address] [place] [address] [phone] Glucose, Fasting 94 mg/dL Normal 70-100 Blood [...] mg/dL Normal 8.8-10.2 Laboratory test finding 03/04/2021 [facility] Outpatient Jazimn fuentes (Registration) [address] [place] [address] [phone] Ethyl Alcohol (Ethanol) < 0.003 % Normal [...] Little GFR Left ESRD GFR <15 on [employer] Procedures Date Code Description Status 03/22/2021 85167 Office/Outpatient Established Mo d MDM 30-39 Min Completed Medical Devices Description No Information Available Encounters Type Date Location Provider Dx Diagnosis Office Visit 03/22/2021 11:00a [facility] Matias Hickey D.O. N18.4 Chronic kidney disease, stag e 4 (severe) E03.9 Hypothyroidism, unspecified E78.2 Mixed hyperlipidemia K21.9 Gastro-esophageal reflux dis ease without esophagitis I12.9 Hypertensive chronic kidney disease w stg 1-4/unsp chr kdny Z91.018 Allergy to other foods Z91.040 Latex allergy status Z79.899 Other retirement (current) dr giles therapy Z79.82 detention (current) use of a spirin N25.81 Secondary [...] status Lyubov Taveras, D.O. 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 03/22/2021 Z79.82 detention (current) use of aspir in Lyubov Hickey, D.O. 03/22/2021 N25.81 Secondary hyperparathyroidism of renal origin Lyubov Law D.O. 03/22/2021 F43.21 Adjustment disorder with depress ed mood Lyubov Hickey D.O. Plan of Treatment Future Appointment(s):* 06/28/2021 11:20 am - Lyubov Hickey D.O. at [facility] * 04/27/2021 11:20 am - Lyubov Hickey D.O. at [facility] Functional Status Description No Information Available Mental Status Description No Information Available Referrals Description No Information Available
--- OUTSIDE RECORDS SUMMARY | 2021-03-28 14:39 | CCD | Continuity of Care Document ---
Author Author Alka HICKEY D.O. 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 AUTM Beto Leon Jimbo AUTM [phone] Wilmar Fiore M.D. AUTM [phone] [facility] AUTM [phone] Problems Active Problems Provider Date Essential hypertension [...] Use Denies Drug Use Smoking Status Reviewed: 09/12/20 Patient has never smoked Exercise Type/Frequency Walks 2 times a week Sun Exposure Uses sunscreen Seat Belt/Car Seat Always uses seat belt Allergies, Adverse Reactions, Alerts Active Allergies Criticality Reaction | Severity Comments [...] by mouth as needed for edema 90tabs Lyubov Hickey D.OYash 12/2019 Vitamin D3 25mcg (1000 Ut) Chewtabs Unknown Meclizine HCL 25mg Tablets 1 tablet by mouth as needed every 6 hours Unknown Nystatin 701274Mhwi/GM Cream apply small amount to rash around anus externally twice daily as needed (ok to mix with vaseline) Unknown Premarin 0.625mg Tablets 1 by mouth every day Unknown Cytra-3 [phone]/[id number] Syrup Unknown Magnesium Gluconate 500mg Tablets Unknown [...] tab by mouth twice a day 180caps Tia Rapp.O. Aspir-[address] 1 by mouth every day Unknown Multivitamin Adult Tablets 1 by mouth every day Unknown Medications Administered in Office Medication SIG Qnty Indications Ordering Provider Date Immunization Administration Single Or Co mbination Injection Nurse 04/22/2019 Immunizations CPT Code Status Date Vaccine Lot # [id number] Given 04/22/2019 Influenza Virus Vaccine, Quadrivalent, Split, Preservative Free [id number] Given 04/22/2019 Influenza Virus Vaccine, Quadrivalent, Split, Preservative Free [id number] Vital Signs Date Vital Result Comment 09/12/2020 1:53pm BP Systolic 136 mmHg BP Diastolic 74 mmHg Height 61.0 inches 5'1" Weight 178.00 lb BMI (Body Mass Index) 33.6 kg/m2 Heart Rate 88 /min Respiratory Rate 18 /min Body Temperature 97.7 F O2 % BldC Oximetry 97 % [place] Body Weight 105 lb 04/28/2020 1:15pm BP Systolic 140 mmHg 148/70 rechec k BP Diastolic 72 mmHg 148/70 recheck Height 61.0 inches 5'1" Weight 183.25 lb BMI (Body Mass Index) 34.6 kg/m2 Heart Rate 71 /min Respiratory Rate 18 /min Body Temperature 98.5 F O2 % BldC Oximetry 98 % [place] Body Weight 105 lb Results Test Acquired Date Facility Test Result H/L Range Note Complete Blood Count 03/04/2021 [facility] Outpatient Test ing (Registration) [address] [place], [place] [id number] [phone] White Blood Count 9.6 10 Normal 4.0-10.0 [...] % Normal 0-0 Laboratory test finding 03/04/2021 [facility] Outpatient T esting (Registration) [address] [place], [place] [address] [phone] Lipase 167 U/L Normal 73-393 Drug Eval Toxicology ED Only 03/04/2021 [facility] Outpati ent Testing (Registration) [address] [place] [address] [phone] Amphetamines Level Urine NEGATIVE Normal Negativ e Barbiturates Urine NEGATIVE Normal Negative Benzodiazepines Urine NEGATIVE Normal Negative Cannabinoids Urine NEGATIVE Normal Negative Cocaine Metabolite Urine NEGATIVE Normal Negative Methadone Urine NEGATIVE Normal Negative Opiates Urine NEGATIVE Normal Negative Phencyclidine Urine NEGATIVE Normal Negative 1 Liver Profile 03/04/2021 [facility] Outpatient Testi ng (Registration) [address] [place] [address] [phone] Ast/Sgot 18 U/L Normal 7-37 Alt/SGPT 22 U/L Normal 12-78 Alkaline Phosphatase 46 U/L Normal 45-117 Bilirubin,Total 0.2 mg/dL Normal 0.2-1.0 Bilirubin,Direct < 0.1 mg/dL Normal 0.0-0.2 Total Protein 7.1 GM/DL Normal 6.4-8.2 Albumin 3.4 GM/DL Normal 3.2-5.2 Albumin/Globulin Ratio 0.9 Low 1.2-2.2 Basic Metabolic Profile 03/04/2021 [facility] Outpatient T esting (Registration) [address] [place] [address] [phone] Glucose, Fasting 94 mg/dL Normal 70-100 Blood [...] mg/dL Normal 8.8-10.2 Laboratory test finding 03/04/2021 [facility] Outpatient T alfredo (Registration) [address] [place], [place] [address] [phone] Ethyl Alcohol (Ethanol) < 0.003 % Normal [...] Little GFR Left ESRD GFR <15 on 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 09/12/2020 N18.4 Chronic kidney disease, stage 4 (severe) Lyubov Hickey D.OYash 09/12/2020 E78.2 Mixed hyperlipidemia Lyubov Taveras D.OYash 09/12/2020 K21.9 Gastro-esophageal reflux disease without esophagitis Lyubov Hickey D.OYash 09/12/2020 I12.9 Hypertensive chronic kidney disease with stage 1 through stage 4 chronic kidney disease, or unspecified chronic kidney disease Lyubov Law D.O. 09/12/2020 Z91.018 Allergy to other foods Lyubov Rivera D.OYash 09/12/2020 Z91.040 Latex allergy status Lyubov Taveras D.O. 09/12/2020 Z79.899 Other [facility] (current) drug t herapy Lyubov Hickey D.O. 09/12/2020 Z79.82 parts counterman (current) use of aspir in Lyubov Hickey D.OYash 09/12/2020 N25.81 Secondary hyperparathyroidism of renal origin Lyubov Law D.O. Plan of Treatment No Information Available Functional Status Description No Information Available Mental Status Description No Information Available Referrals Description No Information Available
--- OUTSIDE RECORDS SUMMARY | 2021-03-28 14:39 | CCD | Continuity of Care Document ---
Author Author Alka HICKEY D.O. Organization Unknown Address [address] [place] [address] Phone [phone] Care Team Providers Care Swing Grinder Name Role Phone Lyubov Hickey D.O. AUTM Dale Leontia Choi AUTM [phone] Wilmar Fiore M.D. AUTM [phone] [facility] AUTM [phone] Problems Active Problems Provider Date Essential hypertension KATHRYN Khan Onset: 11/23/19 17 Mixed hyperlipidemia KATHRYN Khan Onset: 11/22/2016 Chronic kidney disease stage 4 Lyubov Hickey D.O. On set: 02/26/2017 Gastroesophageal reflux disease Lyubov Hickey D.O. O nset: 02/26/2017 Insomnia yLubov Hickey D.O. Onset: 2016 Allergy to banana [...] as needed every 6 hours Unknown Nystatin 926658Sanb/GM Cream apply small amount to rash around anus externally twice daily as needed (ok to mix with vaseline) Unknown Premarin 0.625mg Tablets 1 by mouth every day Unknown Cytra-3 [phone] Syrup Unknown Magnesium Gluconate 500mg Tablets Unknown [...] CPT Code Status Date Vaccine Lot # [id number] Given 04/22/2019 Influenza Virus Vaccine, Quadrivalent, Split, Preservative Free [id number] Given 04/22/2019 Influenza Virus Vaccine, Quadrivalent, Split, Preservative Free [id number] Vital Signs Date Vital Result Comment 03/22/2021 11:15am BP Systolic 138 mmHg BP Diastolic 78 mmHg Height 61.0 inches 5'1" Weight 180.38 lb BMI (Body Mass Index) 34.1 kg/m2 Heart Rate 94 /min Respiratory Rate 18 /min Body Temperature 96.9 F O2 % BldC Oximetry 98 % [place] Body Weight 105 lb 09/12/2020 1:53pm BP Systolic 136 mmHg BP Diastolic 74 mmHg Height 61.0 inches 5'1" Weight 178.00 lb BMI (Body Mass Index) 33.6 kg/m2 Heart Rate 88 /min Respiratory Rate 18 /min Body Temperature 97.7 F O2 % BldC Oximetry 97 % [place] Body Weight 105 lb Results Test Acquired Date Facility Test Result H/L Range Note Complete Blood Count 03/04/2021 [facility] Outpatient Test ing (Registration) [address] [place] [address] [phone] White Blood Count 9.6 10 Normal 4.0-10.0 [...] % Normal 0-0 Laboratory test finding 03/04/2021 [facility] Outpatient T esting (Registration) [address] [place], [place] [address] [phone] Lipase 167 U/L Normal 73-393 Drug Eval Toxicology ED Only 03/04/2021 [facility] Outpati ent Testing (Registration) [address] [place] [address] [phone] Amphetamines Level Urine NEGATIVE Normal Negativ e Barbiturates Urine NEGATIVE Normal Negative Benzodiazepines Urine NEGATIVE Normal Negative Cannabinoids Urine NEGATIVE Normal Negative Cocaine Metabolite Urine NEGATIVE Normal Negative Methadone Urine NEGATIVE Normal Negative Opiates Urine NEGATIVE Normal Negative Phencyclidine Urine NEGATIVE Normal Negative 1 Liver Profile 03/04/2021 [facility] Outpatient Testi ng (Registration) [address] [place] [address] [phone] Ast/Sgot 18 U/L Normal 7-37 Alt/SGPT 22 U/L Normal 12-78 Alkaline Phosphatase 46 U/L Normal 45-117 Bilirubin,Total 0.2 mg/dL Normal 0.2-1.0 Bilirubin,Direct < 0.1 mg/dL Normal 0.0-0.2 Total Protein 7.1 GM/DL Normal 6.4-8.2 Albumin 3.4 GM/DL Normal 3.2-5.2 Albumin/Globulin Ratio 0.9 Low 1.2-2.2 Basic Metabolic Profile 03/04/2021 [facility] Outpatient T esting (Registration) [address] [place] [address] [phone] Glucose, Fasting 94 mg/dL Normal 70-100 Blood [...] mg/dL Normal 8.8-10.2 Laboratory test finding 03/04/2021 [facility] Outpatient Jazmin fuentes (Registration) [address] [place] [address] [phone] Ethyl Alcohol (Ethanol) < 0.003 % Normal [...] Little GFR Left ESRD GFR <15 on 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 Matias Hickey D.O. N18.4 Chronic kidney disease, stag e 4 (severe) E03.9 Hypothyroidism, unspecified E78.2 Mixed hyperlipidemia K21.9 Gastro-esophageal reflux dis ease without esophagitis I12.9 Hypertensive chronic kidney disease w stg 1-4/unsp chr kdny Z91.018 Allergy to other foods Z91.040 Latex allergy status Z79.899 Other intermediate (current) dr giles therapy Z79.82 half-way (current) use of a spirin N25.81 Secondary [...] status Lyubov Taveras, D.O. 03/22/2021 Z79.899 Other intermediate manager (current) drug t herapy Lyubov Hickey D.O. 03/22/2021 Z79.82 half-way (current) use of aspir in Lyubov Hickey, D.O. 03/22/2021 N25.81 Secondary hyperparathyroidism of renal origin Lyubov Law D.O. 03/22/2021 F43.21 Adjustment disorder with depress ed mood Lyubov Hickey D.O. Plan of Treatment Future Appointment(s):* 06/28/2021 11:20 am - Lyubov Hickey D.O. at [facility] * 04/27/2021 11:20 am - Lyubov Hickey D.O. at [facility] Functional Status Description No Information Available Mental Status Description No Information Available Referrals Description No Information Available
[2021-03-28] MEDS ORDERED: BUSP5TA PO (14:43)
[2021-03-28] MEDS ORDERED: ROCA0.25 PO (14:43)
[2021-03-28] MEDS ORDERED: ESTR625TA PO (14:43)
[2021-03-28] MEDS ORDERED: HYDR-3910 PO (14:43)
[2021-03-28] MEDS ORDERED: SPIR-10 PO (14:43)
[2021-03-28] MEDS ORDERED: LEVO50TA5 PO (14:43)
[2021-03-28] MEDS ORDERED: HOME MED LIST COMPLETE! XX SCH (14:45)
--- OUTSIDE RECORDS SUMMARY | 2021-03-28 14:45 | CCD ---
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 Care Client Services Vice President Name Role Phone MINERVA-BRIAN, SALVADOR DO Unavailable [...] Unavailable Unavailable MINERVA-BRIAN, SALVADOR DO Unavailable Unavailable MINERVA-BIRAN, SALVADOR DO Unavailable Unavailable MINERVA-BRIAN, SALVADOR DO [...] Unavailable Unavailable MINERVA-BRIAN, SALVADOR DO Unavailable Unavailable MINERVA-BRAIN, SALVADOR DO Unavailable Unavailable MINERVA-BRIAN, SALVADOR DO [...] Unavailable MINERVA-BRIAN, SALVADOR DO Unavailable Unavailable MINERVA-BRIAN, SALAVDOR DO Unavailable Unavailable MINERVA-BRIAN, SALVADOR DO Unavailable [...] F Evan MD Unavailable Unavailable Michelle, F Evna MD Unavailable Unavailable Michelle, F Evan MD [...] is protected by Article 27-F of the [facility] Public Health law. If you continue you may have access to information: Regarding HIV / AIDS; Provided by facilities licensed or operated by the [facility] Office of Mental Health; or Provided by the [facility] Office for People With Developmental Disabilities. If such information is present, then the following [facility] mandated warning applies: This information has been [...] law may result in a fine or senior care sentence or both. A general authorization for the release of medical or other information is NOT sufficient authorization for further disc losure. Family History Family Member Name Family Member Gender Family Member Status Date o f Status Description Data Source(s) Unknown Condition [facility] Unknown Male Problem [facility] ([facility]) Unknown Male Problem [facility] ([facility]) Encounters Encounter Providers Location Date Indications Data Source(s ) Outpatient Attender: SALVADOR LEE [facility] 03/22/2021 11:00:00 AM EDT [facility] ([facility]) Outpatient Attender: SALVADOR LEE [facility] 09/12/2020 02:00:00 PM EDT [facility] ([facility]) Outpatient Attender: BERTRAND RATLIFF MD [facility] 05/31 10:30:00 AM EST [facility] ([facility]) Outpatient Attender: Ramesh PERALTA [facility] 04/28/2020 12:20:00 PM EST [facility] ([facility]) Outpatient Attender: Evan Martinez MDConsultant: SPECIFIED N OT 03/31/2020 10:44:00 AM EST - 03/31/2020 10:44:[address] [facility] Outpatient Attender: BERTRAND RATLIFF MD Medical Building 03/29 10:30:00 AM EST [facility] ([facility] Ratliff MD) Immunizations Vaccine Date Status Description Data Source(s) COVID-19 VACCINE Moderna 07/27/2020 12:00:00 AM EST completed [facility] Vaccine Series Complete: YESThis Data wa s Submitted to [facility] Via [employer]. COVID-19 VACCINE Moderna 06/29/2020 12:00:00 AM EST completed [facility]IS Vaccine Series Complete: NOThis Data was Submitted to [facility] [employer]. Medications Medication Brand Name Start Date Product Form Dose Route Admi nistrative Instructions Pharmacy Instructions Status Indications Reaction Description Data Source(s) Levothyroxine Sodium 0.05 MG Oral Tablet Levothyroxine Sodiu m 09/12/2020 12:00:00 AM EDT ORAL active M EDENT ([facility]) Cholecalciferol 1000 UNT Oral Tablet Vitamin D 05/31/2020 12:00:00 A M EST ORAL active [facility] (Zahra Ratliff MD) Estrogens, Conjugated (NURSING HOME) 0.625 MG Oral Tablet [Premarin] Premarin 05/31/2020 [...] type / Coverage type Policy ID Covered democrat ID Covered democrat's relationship to cottrell Policy Cottrell Plan Information MEDICARE A [id number] Self [id number] A MEDICARE 4 [id number] A MEDICARE A [id number] Self [id number] A MEDICARE A [id number] Self [id number] MEDICARE [id number] SP [id number] A MEDICARE [id number] SP [id number] MEDICARE [id number] SP [id number] COMMERCIAL GENERIC U [id number] Self [id number] [facility] EMP U [id number] Self [id number] [facility] [id number] SP [id number] [facility] [id number] SP [id number] [employer] [id number] Self [id number] Medicare [place] Medicare Primary [id number] Self 10 [id number] [facility] Commercial [id number] Self [id number] Medicare [place] Medicare Primary [id number] Self 10 [id number] Medicare (Part B) Medicare Primary [id number] Self 1 [id number] [facility] [place] Part B [id number] Self [id number] Medicare (Part B) Medicare Primary [id number] Self 1 [id number] Medicare (Part B) Medicare Primary [id number] Self 1 [id number] [employer] [id number] Self [id number] Medicare [place] Medicare Primary [id number] Self [id number] [facility] [address] [id number] [place] [id number] MEDICARE [id number] SP [id number] A [facility] 2 [id number] 1 0 [id number] SELFPAY 5 UNAVAILABLE 1 UNAVAILA BLE MEDICARE -O/P [id number] 18 [id number] [facility] INSURANCE-O/P [id number] 18 [id number] [employer] [place] 306/806 [id number] SP [id number] O UNAVAILABLE UNAVAILA BLE [place] 306/[id number] SP [id number] [facility] [id number] 18 [id number] MEDICARE PART A [facility] [id number] 18 [id number] BCBS [place] MEDICARE C [id number] S [id number] [facility] [place] PPO 302/307 [id number] SP [id number] [facility] [place] Commercial [id number] Self [id number] Medicare [place] Medicare Primary [id number] Self [id number] [facility] [employer] [id number] Self [id number] Medicare [place] Medicare Primary [id number] Self 10 [id number] Problems, Conditions, and Diagnoses No Information Surgeries/Procedures Procedure Description Date Indications Data Source(s) OFFICE OUTPATIENT VISIT 25 MINUTES 03/22/2021 12:00:00 AM EDT [facility] ([facility]) OFFICE OUTPATIENT VISIT 25 MINUTES 09/12/2020 12:00:00 AM EDT [facility] ([facility]) Results ID Date Data Source [id number] 03/04/2021 04:58:00 PM EDT [facility] ([facility]) Name Value Range Interpretation Code Description Data Michaela rce(s) Supporting Document(s) Ethanol [Mass/volume] in Serum or Plasma Laboratory test result 0.000-0.010 Normal (applies to non-numeric results) [facility] ([facility]) Acetaminophen [Mass/volume] in Serum or Plasma Laboratory test r esult 10.0-30.0 Below low normal [facility] ([facility]) Salicylates [Mass/volume] in Serum or Plasma Laboratory test res ult 5.0-30.0 Below low normal [facility] ([facility]) Thyrotropin [Units/volume] in Serum or Plasma 1.890 uIU/ML 0. 358-3.740 Normal (applies to non-numeric results) [facility] ([facility]) ID Date Data Source [id number] 03/04/2021 04:58:00 PM EDT [facility] ([facility]) Name Value Range Interpretation Code Description Data Michaela rce(s) Supporting Document(s) Glucose, Fasting 94 mg/dL 70-100 Normal (applies to non-numeric results) [facility] ([facility]) Blood Urea Nitrogen 48 mg/dL 7-18 Above high normal [facility] ([facility]) Sodium Level 139 meq/L 136-145 Normal (applies to non-numeric res ults) [facility] ([facility]) Glomerular Filtration Rate 25.5 Below low normal [facility] ([facility]) <content>Units are mL/min/1.73 m2</content>
<content></content>
<content>Chronic Kidney Disease Staging per NKF:</content>
<content></content>
<content>Stage I & II GFR >=60 Normal to Mildly Decreased</content>
<content>Stage III GFR 30- 59 Moderately Decreased</content>
<content>Stage IV GFR 15-29 Severely Decreased</content>
<content>Stage V GFR <15 Very Little GFR Left</content>
<content>ESRD GFR <15 on MEDICAL LAB ASSISTANT</content>
<content></content> Creatinine For GFR 2.03 mg/dL 0.55-1.30 Above high normal [facility] ([facility]) Potassium Serum 3.6 meq/L 3.5-5.1 Normal (applies to non-numeric results) [facility] ([facility]) Chloride Level 104 meq/L 98-107 Normal (applies to non-numeric r esults) [facility] ([facility]) Calcium Level 9.8 mg/dL 8.8-10.2 Normal (applies to non-numeric re sults) [facility] ([facility]) Anion Gap 9 meq/L 8-16 Normal (applies to non-numeric resul ts) [facility] ([facility]) Carbon Dioxide Level 26 meq/L 21-32 Normal (applies to non-num hussein results) [facility] ([facility]) ID Date Data Source [id number] 03/04/2021 04:58:00 PM EDT [facility]) Name Value Range Interpretation Code Description Data Michaela rce(s) Supporting Document(s) Ast/Sgot 18 U/L 7-37 Normal (applies to non-numeric resul ts) [facility] ([facility]) Alt/SGPT 22 U/L 12-78 Normal (applies to non-numeric resul ts) [facility] ([facility]) Alkaline Phosphatase 46 U/L 45-117 Normal (applies to non-num hussein results) [facility] ([facility]) Bilirubin,Direct Laboratory test result 0.0-0.2 Normal ( applies to non-numeric results) [facility] ([facility]) Bilirubin,Total 0.2 mg/dL 0.2-1.0 Normal (applies to non-numeric results) [facility] ([facility]) Total Protein 7.1 GM/DL 6.4-8.2 Normal (applies to non-numeric re sults) [facility] ([facility]) Albumin 3.4 GM/DL 3.2-5.2 Normal (applies to non-numeric resul ts) [facility] ([facility]) Albumin/Globulin Ratio 0.9 1.2-2.2 Below low normal [facility] ([facility]) ID Date Data Source [id number] 03/04/2021 04:58:00 PM EDT [facility]) Name Value Range Interpretation Code Description Data Michaela rce(s) Supporting Document(s) Barbiturates Urine Laboratory test result Normal (applies to non-numeric results) [facility] ([facility]) Amphetamines Level Urine Laboratory test result Normal (applies to non-numeric results) [facility] ([facility]) Benzodiazepines Urine Laboratory test result Nor mal (applies to non-numeric results) [facility] ([facility]) Cocaine Metabolite Urine Laboratory test result Normal (applies to non-numeric results) [facility] ([facility]) Cannabinoids Urine Laboratory test result Normal (applies to non-numeric results) [facility] ([facility]) Methadone Urine Laboratory test result Normal (a pplies to non-numeric results) [facility] ([facility]) Opiates Urine Laboratory test result Normal (applies t o non-numeric results) [facility] ([facility]) Phencyclidine Urine Laboratory test result Deedee l (applies to non-numeric results) [facility] ([facility]) ALL PRESUMPTIVE POSITIVE FINDINGS AR E UNCONFIRMED [...] CALL THE LAB. ID Date Data Source [id number] 03/04/2021 04:58:00 PM EDT [facility] ([facility]) Name Value Range Interpretation Code Description Data Michaela rce(s) Supporting Document(s) Lipase [Enzymatic activity/volume] in Serum or Plasma 167 U/L 73-393 Normal (applies to non-numeric results) [facility] ([facility]) ID Date Data Source [id number] 03/04/2021 04:58:00 PM EDT [facility]) Name Value Range Interpretation Code Description Data Michaela rce(s) Supporting Document(s) Red Blood Count 4.16 10 4.00-5.40 Normal (applies to non-numeric results) [facility] ([facility]) White Blood Count 9.6 10 4.0-10.0 Normal (applies to non-numeri c results) [facility]) Hematocrit 37.6 % 36.0-47.0 Normal (applies to non-numeric resul ts) [facility] ([facility]) Hemoglobin 12.1 g/dL 12.0-15.5 Normal (applies to non-numeric resul ts) [facility] ([facility]) Mean Corpuscular Volume 90.4 fl 80.0-96.0 Normal ( applies to non-numeric results) [facility] ([facility]) Mean Corpuscular HGB Conc 32.2 g/dL 32.0-36.5 Normal (applies to non-numeric results) [facility]) Mean Corpuscular Hemoglobin 29.1 pg 27.0-33.0 Norm al (applies to non-numeric results) [facility] ([facility]) Platelet Count, Automated 369 10 150-450 Normal (applies to non-numeric results) [facility] ([facility]) Red Cell Distribution Width 14.5 % 11.5-14.5 Norm al (applies to non-numeric results) [facility] ([facility]) Nucleated Red Blood Cell % 0.0 % 0-0 Normal (applies to n on-numeric results) [facility] ([facility]) ID Date Data Source [id number] 08/24/2020 10:57:00 AM EDT [facility]) Name Value Range Interpretation Code Description Data Michaela rce(s) Supporting Document(s) Thyroid Stimulating Hormone 5.120 uIU/ML 0.358-3.740 Above high [place] [facility] ([facility]) Free T4 0.92 ng/dL 0.76-1.46 Normal (applies to non-numeric resul ts) [facility] ([facility]) ID Date Data Source [id number] 08/24/2020 10:57:00 AM EDT [facility]) Name Value Range Interpretation Code Description Data Michaela rce(s) Supporting Document(s) Red Blood Count 3.84 10 4.00-5.40 Below low normal [facility] ([facility]) White Blood Count 6.9 10 4.0-10.0 Normal (applies to non-numeri c results) [facility] ([facility]) Hemoglobin 12.0 g/dL 12.0-15.5 Normal (applies to non-numeric resul ts) [facility] ([facility]) Mean Corpuscular Volume 95.3 fl 80.0-96.0 Normal ( applies to non-numeric results) [facility] ([facility]) Hematocrit 36.6 % 36.0-47.0 Normal (applies to non-numeric resul ts) [facility] ([facility]) Mean Corpuscular HGB Conc 32.8 g/dL 32.0-36.5 Normal (applies to non-numeric results) [facility] ([facility]) Mean Corpuscular Hemoglobin 31.3 pg 27.0-33.0 Norm al (applies to non-numeric results) [facility] ([facility]) Red Cell Distribution Width 12.6 % 11.5-14.5 Norm al (applies to non-numeric results) [facility] ([facility]) Neutrophils % 59.8 % 36.0-66.0 Normal (applies to non-numeric re sults) [facility] ([facility]) Platelet Count, Automated 286 10 150-450 Normal (applies to non-numeric results) [facility] ([facility]) Lymph % 23.9 % 24.0-44.0 Below low normal [facility] ( [facility]) [place] % 12.0 % 2.0-8.0 Above high normal [facility] ([facility]) Eos % 2.9 % 0.0-3.0 Normal (applies to non-numeric resul ts) [facility] ([facility]) Baso % 0.7 % 0.0-1.0 Normal (applies to non-numeric resul ts) [facility] ([facility]) Nucleated Red Blood Cell % 0.0 % 0-0 Normal (applies to n on-numeric results) [facility] ([facility]) Neutrophils # 4.1 10 1.5-8.5 Normal (applies to non-numeric re sults) [facility] ([facility]) Immature Granulocyte % 0.7 % 0-3.0 Normal (applies to non-n umeric results) [facility] ([facility]) Lymph # 1.7 10 1.5-5.0 Normal (applies to non-numeric resul ts) [facility] ([facility]) [place] # 0.8 10 0.0-0.8 Normal (applies to non-numeric resul ts) [facility] ([facility]) Baso # 0.1 10 0.0-0.2 Normal (applies to non-numeric resul ts) [facility] ([facility]) Eos # 0.2 10 0.0-0.5 Normal (applies to non-numeric resul ts) [facility] ([facility]) ID Date Data Source [id number] 08/24/2020 10:57:00 AM EDT [facility] ([facility]) Name Value Range Interpretation Code Description Data Michaela rce(s) Supporting Document(s) Triglycerides Level 147 mg/dL Normal (applies to non-nume karuna results) [facility] ([facility]) HDL Cholesterol 67 mg/dL Normal (applies to non-numeric results) [facility] ([facility]) Cholesterol Level 201 mg/dL Above high normal [facility] ([facility]) LDL Cholesterol 105 mg/dL Above high normal [facility] ([facility]) Cholesterol Risk Ratio 3.000 Normal (applies to non-n umeric results) [facility] ([facility]) Non-HDL-C 134 mg/dL Normal (applies to non-numeric resul ts) [facility] ([facility]) ID Date Data Source [id number] 08/24/2020 10:57:00 AM EDT [facility] ([facility]) Name Value Range Interpretation Code Description Data Michaela rce(s) Supporting Document(s) Urate [Mass/volume] in Serum or Plasma 6.7 mg/dL 2.6-6.0 Above hi gh normal [facility] ([facility]) ID Date Data Source [id number] 08/24/2020 10:57:00 AM EDT [facility] ([facility]) Name Value Range Interpretation Code Description Data Michaela rce(s) Supporting Document(s) Glucose, Fasting 91 mg/dL 70-100 Normal (applies to non-numeric results) [facility] ([facility]) Creatinine For GFR 1.77 mg/dL 0.55-1.30 Above high normal [facility] ([facility]) Blood Urea Nitrogen 43 mg/dL 7-18 Above high normal [facility] ([facility]) Sodium Level 139 meq/L 136-145 Normal (applies to non-numeric res ults) [facility] ([facility]) Glomerular Filtration Rate 29.9 Below low normal [facility] ([facility]) <content>Units are mL/min/1.73 m2</content>
<content></content>
<content>Chronic Kidney Disease Staging per NKF:</content>
<content></content>
<content>Stage I & II GFR >=60 Normal to Mildly Decreased</content>
<content>Stage III GFR 30- 59 Moderately Decreased</content>
<content>Stage IV GFR 15-29 Severely Decreased</content>
<content>Stage V GFR <15 Very Little GFR Left</content>
<content>ESRD GFR <15 on MEDICAL LAB ASSISTANT</content>
<content></content> Potassium Serum 3.9 meq/L 3.5-5.1 Normal (applies to non-numeric results) [facility] ([facility]) Chloride Level 107 meq/L 98-107 Normal (applies to non-numeric r esults) [facility] ([facility]) Carbon Dioxide Level 25 meq/L 21-32 Normal (applies to non-num hussein results) [facility] ([facility]) Anion Gap 7 meq/L 8-16 Below low normal [facility] ( [facility]) Ast/Sgot 18 U/L 7-37 Normal (applies to non-numeric resul ts) [facility] ([facility]) Calcium Level 9.1 mg/dL 8.8-10.2 Normal (applies to non-numeric re sults) [facility] ([facility]) Alt/SGPT 21 U/L 12-78 Normal (applies to non-numeric resul ts) [facility] ([facility]) Bilirubin,Total 0.2 mg/dL 0.2-1.0 Normal (applies to non-numeric results) [facility] ([facility]) Alkaline Phosphatase 49 U/L 45-117 Normal (applies to non-num hussein results) [facility] ([facility]) Albumin/Globulin Ratio 1.2 1.2-2.2 Normal (applies to non-n umeric results) [facility] ([facility]) Albumin 3.6 GM/DL 3.2-5.2 Normal (applies to non-numeric resul ts) [facility] ([facility]) Total Protein 6.7 GM/DL 6.4-8.2 Normal (applies to non-numeric re sults) [facility] ([facility]) Procedure Social History Code Duration Value Status Description Data Source(s ) Smoking 03/22/2021 12:00:00 AM EDT Patient has never smoked co mpleted Patient has never smoked [facility] ([facility]) Vital Signs ID Date Data Source UNK Name Value Range Interpretation Code Description Data Source(s) Body temperature 96.9 [degF] 96.9 [degF] [facility] ([facility]) Oxygen saturation in Arterial blood by Pulse oximetry 98 % 98 % [facility]) Mcclure body weight 105 [lb_av] 105 [lb_av] [facility] T ([facility]) Systolic blood pressure 138 mm[Hg] 138 mm[Hg] M [facility] ([facility]) Diastolic blood pressure 78 mm[Hg] 78 mm[Hg] [facility]) Body height 61.0 [in_i] 61.0 [in_i] [facility] ([facility]) 5'1" Body weight 180.38 [lb_av] 180.38 [lb_av] [facility] T ([facility]) Body mass index (BMI) [Ratio] 34.1 kg/m2 34.1 k g/m2 [facility] ([facility]) Heart rate 94 /min 94 /min [facility] ([facility]) Respiratory rate 18 /min 18 /min [facility] ( [facility]) Body height 66 [in_i] 66 [in_i] [facility] [...] % 96 % [facility] ([facility]) Diastolic blood pressure 74 mm[Hg] 74 mm[Hg] [facility] ([facility]) Respiratory rate 18 /min 18 /min [facility] ( [facility]) Body temperature 97.7 [degF] 97.7 [degF] [facility] ([facility]) Oxygen saturation in Arterial blood by Pulse oximetry 97 % 97 % [facility] ([facility]) [place]cl[place] body weight 105 [lb_av] 105 [lb_av] [facility] T ([facility]) Systolic blood pressure 136 mm[Hg] 136 mm[Hg] [facility]) Body height 61.0 [in_i] 61.0 [in_i] [facility] ([facility]) 5'1" Body weight 178.00 [lb_av] 178.00 [lb_av] [facility] T ([facility]) Body mass index (BMI) [Ratio] 33.6 kg/m2 33.6 k g/m2 [facility] ([facility]) Heart rate 88 /min 88 /min [facility] ([facility]) Body height 66 [in_i] 66 [in_i] [facility] [...] [Ratio] 34.6 kg/m2 34.6 k g/m2 [facility] ([facility]) Heart rate 71 /min 71 /min [facility] ([facility]) Systolic blood pressure 140 mm[Hg] 140 mm[Hg] M EDENT ([facility]) 148/70 recheck Diastolic blood pressure 72 mm[Hg] 72 mm[Hg] MEDENT ([facility]) 148/70 recheck Body height 61.0 [in_i] 61.0 [in_i] MEDENT ([facility]) 5'1" Body weight 183.25 [lb_av] 183.25 [lb_av] MEDEN T ([facility]) Respiratory rate 18 /min 18 /min MEDENT ( [facility]) Body temperature 98.5 [degF] 98.5 [degF] MEDENT ([facility]) Oxygen saturation in Arterial blood by Pulse oximetry 98 % 98 % [facility] [place] body weight 105 [lb_av] 105 [lb_av] MEDEN T ([facility]) Body height 66 [in_i] 66 [in_i] MEDENT (Bertrand Ratliff MD) 5'6" Body weight 173.00 [lb_av] 173.00 [lb_av] MEDEN T (Bertrand Ratliff MD) Body mass index (BMI) [Ratio] 27.9 kg/m2 27.9 k g/m2 MEDENT (Bertrand Ratliff MD) Body temperature 97.3 [degF] 97.3 [degF] PADMINI (Bertrand Ratliff MD) Systolic blood pressure 148 mm[Hg] 148 mm[Hg] M EDSHANTE (Bertrand Ratliff MD) Diastolic blood pressure 77 mm[Hg] 77 mm[Hg] PADMINI (Bertrand Ratliff MD) Heart rate 74 /min 74 /min PADMINI (Bertrand Ratliff MD) Oxygen saturation in Arterial blood by Pulse oximetry 97 % 97 % PADMINI (Bertrand Ratliff MD)
--- NOTE | 2021-03-28 15:11 | HPEPDOC ---
[facility] Medical History & Physical Date of Admission Mar 28, 2021 Date of Service: Mar 28, 2021 Attending Physician: Merlyn Callahan MD History and Physical CHIEF COMPLAINT: Nausea, vomiting, loss of consciousness HISTORY OF PRESENT ILLNESS: The patient is a 75-year-old female with PMH of hypocalcemia, anemia, hiatal hernia, GERD, hyperlipidemia, chronic kidney disease stage III who presented to [facility] emergency room with the chief complaint of increased nausea and vomiting with 3 syncopal episodes this week. The patient states that she has a history of syncope in the past and was told this was due to low blood levels. She states that she had severe nausea with 2 episodes of nonbloody vomitus today throwing up undigested food. She states her hiatal hernia has worsened and this is likely what caused it. She stated she was sitting down when suddenly she felt lightheaded and began to have diaphoresis. At this time she fell and passed out for an unknown period of time but believed to be around 10 minutes. She denies hitting her head during this episode. She denies any reported loss of bowel or bladder, tongue biting or history of seizures. She states to have had several episodes like this during the week and she is not really symptomatic prior to them occurring. Other associated symptoms include generalized weakness. She denied any pain upper chest or anywhere else in the body, fevers, shortness of breath, chills. In the emergency room her vital signs were: Temperature 96.1, heart rate 65, respiratory rate 16, blood pressure systolic [id number], 97% on room air. She was found to be hypercalcemic with calcium of 15.9. She was on several home medications including calcium supplement, vitamin D and calcitriol which can contribute to this. She also states to drink glass of milk a day. Creatinine was elevated at 3.79, last on file from 03/15/2021 was 2.03. Potassium was normal. Chest x-ray negative, head CT was pending. The patient was admitted to medicine service for further treatment of acute kidney injury on chronic kidney disease stage III, syncope, acute hypercalcemia. REVIEW OF SYSTEMS: Negative except for what is mentioned above PAST MEDICAL HISTORY: anemia, hiatal hernia, GERD, hyperlipidemia, chronic kidney disease stage III, depression, hypertension, hypothyroidism, hypokalemia PAST SURGICAL HISTORY: Total hysterectomy, cholecystectomy FAMILY HISTORY: Mothercervical cancer, CAD. at 68 years old Fatherdied of old age at 100 years old SOCIAL HISTORY: Denies alcohol, tobacco or drug use. Lives alone. Is followed by Dr. Leon, nephrology. She also follows with cardiology, Dr. Ratliff and primary care provider Dr. Thompson. ALLERGIES: Please see below. HOME MEDICATIONS: Please see below. PHYSICAL EXAMINATION: VS: Temperature 96.1F, heart rate 65, respiratory rate 16, blood pressure systolic [id number], 97% on room air. CONSTITUTIONAL: No acute distress, resting comfortably, AAO x 3 EYES: PERRLA, EOM intact, corrective lenses in place HENT, MOUTH: Normocephalic, atraumatic, moist mucous membranes NECK: SUPPLE, no JVD, no lymphadenopathy, no carotid bruit CV: Regular rate and rhythm, S1S2 normal, no murmurs/rubs/gallops RESPIRATORY: Clear to auscultation bilaterally, no rales/rhonchi/wheezes GI: Obese abdomen, BS positive in 4 quadrants, soft, nontender, nondistended, no rebound or guarding, no organomegaly : Deferred MUSCULOSKELETAL: Normal ROM. No cyanosis, clubbing, swelling, joint deformity, extremity edema INTEGUMENTARY: Intact, no rashes, no lesions, no erythema NEUROLOGIC: Cranial Nerves II-XII are intact, no focal deficits PSYCHIATRIC: Mood and affect are normal LABORATORY DATA: Please see below IMAGING: Chest x-ray: No acute cardiopulmonary abnormality CT head: Pending ASSESSMENT: 75-year-old female with PMH of hypocalcemia, anemia, hiatal hernia, GERD, hyperlipidemia, chronic kidney disease stage III admitted to medicine service for further treatment of acute kidney injury on chronic kidney disease stage III, hypercalcemia. PLAN: Syncope, rule out cardiac versus neurological causes -ECG abnormal; however, no emergent concerns -Neuro exam within normal limits -Follow-up echocardiogram, telemetry, neuro checks every 4 hours, CT head, orthostatics BID Acute kidney injury on CKD Stage III possibly multifactorial to home medications, prerenal causes with vomiting, poor PO intake -Last creatinine on file 2.03 in 02/2021 -Follows outpatient with nephrology, they are consulted to see this hospitalization -Daily labs, UA, avoid nephrotoxic meds, IV fluids Hypercalcemia, acute likely secondary to home medications, supplementation -No history of hypercalcemia in the past, no malignancy known -On home calcitriol, calcium supplement and vitamin D. Also drinking milk daily -PTH within normal limits, follow-up ionized calcium -Stopping meds above, IV fluids, repeat BMP 21:00 tonight. If remains elevated will likely need to continue IV fluids and possibly require Lasix. Nephrology consulted to help with management. Hypertension -BP elevated in the ER while on IV fluids -Asymptomatic -Holding spironolactone, continue hydralazine Chronic nausea/vomiting secondary to GERD and hiatal hernia -States this is a long-standing issue and it has not changed much in frequency but does feel as though burning of her chest at times has worsened -Consider additional imaging if becomes an issue during hospitalization -But suggested follow-up as outpatient if remains stable -Zofran when necessary, PPI Hyperlipidemia -Continue home medication Depression -Continue home medication Hypothyroidism -TSH within normal limits -Continue home medication History of hypokalemia -Holding potassium supplement for now with acute kidney injury severe -Follow-up labs as discussed above Questionable cardiac history, type unknown -On aspirin and statin medication but the patient does not know her cardiac history -Follows with Dr. Ratliff in [place], [place] -Continue home meds for now DVT prophylaxis -Heparin subcutaneous DISPOSITION: Admitted as acute inpatient. Nephrology consulted. Will need PT/OT prior to discharge. Vital Signs Vital Signs Date Time Temp Pulse Resp B/P (MAP) Pulse Ox O2 Delivery O2 Flow Rate FiO2 03/28/21 14:06 64 16 164/94 (117) 97 Room Air 03/28/21 11:32 96.1 Laboratory Data Labs 24H Laboratory Tests 2 03/28/21 11:50: Immature Granulocyte % (Auto) 0.5, Neutrophils (%) (Auto) 72.8H, Lymphocytes (%) (Auto) 12.8L, Monocytes (%) (Auto) 11.9H, Eosinophils (%) (Auto) 1.5, Basophils (%) (Auto) 0.5, Neutrophils # (Auto) 6.9, Lymphocytes # (Auto) 1.2L, Monocytes # (Auto) 1.1H, Eosinophils # (Auto) 0.1, Basophils # (Auto) 0.1, Nucleated Red Blood Cells % (auto) 0.0, Urine Color YELLOW, Urine Appearance HAZY, Urine pH 7.0, Urine Specific [place] 1.013, Urine Protein NEGATIVE, Urine Glucose (UA) NEGATIVE, Urine Ketones NEGATIVE, Urine Blood NEGATIVE, Urine Nitrite NEGATIVE, Urine Bilirubin NEGATIVE, Urine Urobilinogen 0.2, Urine Leukocyte Esterase NEGATIVE, Urine WBC (Auto) 5H, Urine RBC (Auto) 0, Urine Hyaline Casts (Auto) 0, Urine Bacteria (Auto) 2+H, Urine Squamous Epithelial Cells 9, Urine Mucus (Auto) SMALL, Urine Sperm (Auto) , Blood Gas Bicarbonate Standard 31.4, Venous Blood pH 7.434H, Venous Blood Partial Pressure CO2 51.1H, Venous Blood Partial Pressure O2 55.6H, Venous Blood Total Carbon Dioxide 35.0H, Venous Blood HCO3 33.5H, Venous Blood Oxygen Saturation 87.1H, Venous Blood Base Excess 7.8H, Anion Gap 5L, Glomerular Filtration Rate 12.4L, Osmolality 294, Lactic Acid Level 1.4, Calcium Level 15.9*H, Total Bilirubin 0.3, Direct Bilirubin < 0.1, Aspartate Amino Transf (AST/SGOT) 23, Alanine Aminotransferase (ALT/SGPT) 23, Alkaline Phosphatase 38L, Ammonia 17, Total Creatine Kinase 90, Creatine Kinase MB < 1.0, Creatine Kinase MB Relative Index 1.11, Troponin I < 0.02, Total Protein 6.5, Albumin 3.3, Albumin/Globulin Ratio 1.0L, 25-Hydroxy Vitamin D Total 27.6L, Thyroid Stimulating Hormone (TSH) 1.830, Parathyroid Hormone (Intact) 26.3, Coronavirus (COVID-19)(PCR) NEGATIVE, Influenza Type A (RT-PCR) NEGATIVE, Influenza Type B (RT-PCR) NEGATIVE, Respiratory Syncytial Virus (PCR) NEGATIVE CBC/BMP Laboratory Tests 03/28/21 11:50 Microbiology Microbiology 03/28/21 Blood Culture, Received Pending 03/28/21 Blood Culture, Received Pending Home Medications Scheduled Aspirin (Ecotrin) 81 Mg Tablet.dr, 81 MG PO BID Biotin (Biotin) 5,000 Mcg Tab.rapdis, 5,000 MCG PO DAILY Buspirone HCl (Buspirone HCl) 5 Mg Tablet, 5 MG PO TID Calcitriol (Rocaltrol) 0.25 Mcg Capsule, 0.25 MCG PO DAILY Calcium Carbonate (Calcium) 600 Mg Tablet, 600 MG PO DAILY Cholecalciferol (Vitamin D3) (Vitamin D3) 25 Mcg Tablet, 25 MCG PO DAILY Conjugated Estrogens (Premarin) 0.625 Mg Tablet, 0.625 MG PO DAILY Diphenhydramine HCl (Benadryl) 25 Mg Capsule, 25 MG PO QHS Glucosamine Sulfate Dipot Chlr (Glucosamine) 1,000 Mg Tablet, 1,000 MG PO DAILY Hydralazine HCl (Hydralazine HCl) 25 Mg Tablet, 25 MG PO TID Levothyroxine Sodium (Levothyroxine Sodium) 50 Mcg Tablet, 50 MCG PO DAILY Multivit with Calcium,Iron,Min (Women's Daily Formula) 1 Each Tablet, 1 TAB PO DAILY Omeprazole (Omeprazole) 20 Mg Capsule.dr, 20 MG PO BID Oxybutynin Chloride (Oxybutynin Chloride ER) 5 Mg Tab.er.24, 5 MG PO DAILY Potassium Chloride (Potassium Chloride) 10 Meq Capsule.er, 10 MEQ PO DAILY Potassium Citrate/Citric Acid (Potassium Cit-Citric Acid Soln) 473 Ml Solution, 10 ML PO BID PT TAKES ONCE A DAY, MIXES IN A GLASS OF WATER Pravastatin Sodium (Pravastatin Sodium) 40 Mg Tablet, 40 MG PO QHS Spironolactone (Spironolactone) 25 Mg Tablet, 25 MG PO DAILY Trazodone HCl (Trazodone HCl) 50 Mg Tablet, 50 MG PO QHS Allergies Coded Allergies: banana (Verified Allergy, Unknown, 05/23/19) latex (Verified Allergy, Unknown, 05/23/19) A-FIB/CHADSVASC A-FIB History Current/History of A-Fib/PAF?: No Current PO Anticoag Therapy: No Age/Risk Factor Scoring CHADSVASC: CHADSVASC Response (Comments) Value Age Risk Factor Age 65-74 years old 1 Gender Risk Factor Female 1 Hx of CHF No 0 Hx of HTN No 0 Hx of Stroke/TIA/or VTE No 0 Hx of Diabetes No 0 Hx of Vascular Disease No 0 Total 2 Treatment Treatment ordered: Other Other anticoagulant ordered: heparin Merlyn Callahan MD Mar 28, 2021 15:11
--- NOTE | 2021-03-28 15:52 | REP ---
INDICATION: trauma. COMPARISON: None. TECHNIQUE: CT brain performed in the axial plane. Coronal reconstruction images are performed. FINDINGS: There is mild atrophy. There is no midline shift or mass effect. There are mild patchy lucencies in the periventricular white matter bilaterally compatible with chronic small vessel ischemic change/gliosis. There is no acute intracranial hemorrhage. There is no extra-axial fluid collection. No skull fracture is seen. There are vascular calcifications in the carotid siphons. The visualized paranasal sinuses and mastoid air cells are clear. IMPRESSION: Chronic changes. No acute intracranial hemorrhage, midline shift or mass effect. <Electronically signed by Panchito Gonzalez > 03/28/21 [id number]
[2021-03-28] MEDS: **hydrALAZINE HCL** 25 MG TAB PO SCH ×2 (16:00→21:00)
[2021-03-28] MEDS: busPIRone 5 MG TAB PO SCH ×2 (16:00→21:53)
--- NOTE | 2021-03-28 18:33 | ECGEPIP ---
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
[2021-03-28 18:45] VITALS: BP 108/72
[2021-03-28] MEDS: NS 1,000 ML IV SCH ×2 (18:50→23:35)
[2021-03-28 20:15] VITALS: BP_SYST 100; BP_SYST 108; BP_SYST 112; BP_DIAS 65; BP_DIAS 66
[2021-03-28 20:17] LABS: INR 0.99; PROTHROMBIN TIME 13.5 SECONDS (12.7-14.5)
[2021-03-28 21:38] LABS: CALCIUM LEVEL 14.6 MG/DL (8.8-10.2); CREATININE FOR GFR 4.09 MG/DL (0.55-1.30); GLOMERULAR FILTRATION RATE 11.4 (>39); POTASSIUM SERUM 3.6 MEQ/L (3.5-5.1)
[2021-03-28] MEDS: HEPARIN SOD (PORCINE) 5000UNITS/ML 1ML VIAL/SYRINGE SQ SCH (21:53)
[2021-03-28] MEDS: ASPIRIN 81MG ENTERIC TABLET PO SCH (21:53)
[2021-03-28] MEDS: PRAVASTATIN 20 MG TAB PO SCH (21:53)
[2021-03-28] MEDS: OMEPRAZOLE 20 MG CAP PO SCH (21:53)
[2021-03-28] MEDS: traZODone 50 MG TAB PO SCH (21:53)
[2021-03-28] MEDS: CALCITONIN SALMON (MIACALCIN) 400INTERNATIONAL UNITS/2ML INJ (J0630) SQ SCH (23:34)
[2021-03-28] MEDS: NYSTATIN 100,000 UNITS/GM TOPICAL PWD 15 GM TOP SCH (23:35)
[2021-03-29 06:00] VITALS: BP 114/64
[2021-03-29] MEDS: LEVOTHYROXINE 50MCG TABLET (0.05MG) PO SCH (06:42)
[2021-03-29] MEDS: NS 1,000 ML IV SCH ×3 (06:42→13:52)
[2021-03-29 07:21] LABS: HEMATOCRIT 29.4 % (36.0-47.0); HEMOGLOBIN 9.7 g/dl (12.0-15.5); MEAN CORPUSCULAR HEMOGLOBIN 30.2 pg (27.0-33.0); MEAN CORPUSCULAR VOLUME 91.6 fl (80.0-96.0); PLATELET COUNT, AUTOMATED 275 10^3/uL (150-450); RED BLOOD COUNT 3.21 10^6/uL (4.00-5.40); WHITE BLOOD COUNT 8.6 10^3/uL (4.0-10.0)
[2021-03-29 07:43] LABS: ALBUMIN 2.4 GM/DL (3.2-5.2); BILIRUBIN,TOTAL 0.4 MG/DL (0.2-1.0); CALCIUM LEVEL 13.3 MG/DL (8.8-10.2); CREATININE FOR GFR 4.05 MG/DL (0.55-1.30); GLOMERULAR FILTRATION RATE 11.5 (>39); TOTAL PROTEIN 5.1 GM/DL (6.4-8.2)
[2021-03-29] MEDS: HEPARIN SOD (PORCINE) 5000UNITS/ML 1ML VIAL/SYRINGE SQ SCH ×2 (08:53→20:51)
[2021-03-29] MEDS: ASPIRIN 81MG ENTERIC TABLET PO SCH ×2 (08:56→20:52)
[2021-03-29] MEDS: **hydrALAZINE HCL** 25 MG TAB PO SCH ×3 (08:57→20:53)
[2021-03-29] MEDS: oxyBUTYnin *DITROPAN XL* 5 MG TABCR PO SCH (08:59)
[2021-03-29] MEDS: busPIRone 5 MG TAB PO SCH ×3 (08:59→20:53)
[2021-03-29] MEDS: OMEPRAZOLE 20 MG CAP PO SCH ×2 (08:59→20:53)
[2021-03-29] MEDS: NYSTATIN 100,000 UNITS/GM TOPICAL PWD 15 GM TOP SCH ×2 (09:00→20:52)
[2021-03-29] MEDS ORDERED: FLUBLOK(EGG FREE)(QUAD)INFLUENZA VACC 0.5ML SYRINGE 18YRS & OLDER IM ONE (09:00)
[2021-03-29 09:11] VITALS: BP_SYST 129; BP_SYST 141; BP_SYST 143; BP_DIAS 53; BP_DIAS 60
[2021-03-29] MEDS: CALCITONIN SALMON (MIACALCIN) 400INTERNATIONAL UNITS/2ML INJ (J0630) SQ SCH ×2 (11:32→20:59)
[2021-03-29 14:00] VITALS: BP 129/57
--- NOTE | 2021-03-29 15:55 | IPNPDOC ---
Date Seen The patient was seen on 03/29/21. Progress Note SUBJECTIVE: No acute complaints overnight. Retinae and worsened on IV fluids. Increased swelling in upper and lower extremity . Denies chest pain, shortness of breath, nausea, vomiting but does complain of heartburn at times. OBJECTIVE PHYSICAL EXAMINATION: VS: Please see below CONSTITUTIONAL: No acute distress, resting comfortably, AAO x 3 EYES: PERRLA, EOM intact, corrective lenses in place HENT, MOUTH: Normocephalic, atraumatic, moist mucous membranes NECK: SUPPLE, no JVD, no lymphadenopathy, no carotid bruit CV: Regular rate and rhythm, S1S2 normal, no murmurs/rubs/gallops RESPIRATORY: Clear to auscultation bilaterally, no rales/rhonchi/wheezes GI: Obese abdomen, BS positive in 4 quadrants, soft, nontender, nondistended, no rebound or guarding, no organomegaly : Deferred MUSCULOSKELETAL: Normal ROM. No cyanosis, clubbing, swelling, joint deformity, extremity edema +1 in all extremities INTEGUMENTARY: Intact, no rashes, no lesions, no erythema NEUROLOGIC: Cranial Nerves II-XII are intact, no focal deficits PSYCHIATRIC: Mood and affect are normal LABORATORY DATA: Please see below IMAGING: Echocardiogram 03/28/21: f/u result CT of the chest, CT abdomen/pelvis pending Chest x-ray: No acute cardiopulmonary abnormality CT head: No acute intracranial abnormality ASSESSMENT: 75-year-old female with PMH of hypocalcemia, anemia, hiatal hernia, GERD, hyperlipidemia, chronic kidney disease stage III admitted to medicine service for further treatment of acute kidney injury on chronic kidney disease stage III, hypercalcemia. PLAN: Acute kidney injury on CKD Stage III possibly multifactorial to home medications, prerenal causes with vomiting, poor PO intake -Last creatinine on file 2.03 in 02/2021 -Cr today worse at 4.09, making good u/o -UA neg -Per nephrology, c/w IVFs currently at lower rate -Daily labs, avoid nephrotoxic meds Syncope, rule out cardiac vs. vasovagal episodes? -ECG abnormal but no events overnight -Neuro checks wnl -Echocardiogram pending results -CT head neg -orthostatics neg -Follow-up echocardiogram, telemetry, orthostatics BID Hypercalcemia, acute likely secondary to home medications, supplementation. r/o malignancy -No history of hypercalcemia in the past, no malignancy known -On home calcitriol, calcium supplement, vitamin D, eats a lot of TUMS, drinking milk daily -PTH within normal limits, ionized calcium high -C/w IVFs, calcitonin. -Nephrology consulted Hypertension -Stable -Holding spironolactone, continue hydralazine Chronic nausea/vomiting/heartburn secondary to GERD, hiatal hernia -States this is a long-standing issue and it has not changed much in frequency but does feel as though burning of her chest at times has worsened -Follow-up as outpatient if remains stable -Zofran when necessary, PPI increased to BID Hyperlipidemia -Continue home medication Depression -Continue home medication Hypothyroidism -TSH within normal limits -Continue home medication History of hypokalemia -Holding potassium supplement for now with acute kidney injury severe -Follow-up labs as discussed above Questionable cardiac history, type unknown -On aspirin and statin medication but the patient does not know her cardiac history -Follows with Dr. Ratliff in [place], [place] -Continue home meds for now DVT prophylaxis -Heparin subcutaneous DISPOSITION: Admitted as acute inpatient. Nephrology consulted. PT: cleared. VS, I&O, 24H, Fishbone Vital Signs/I&O Vital Signs Date Time Temp Pulse Resp B/P (MAP) Pulse Ox O2 Delivery O2 Flow Rate FiO2 03/29/21 14:00 97.7 69 18 129/57 (81) 94 Room Air I&O- Last 24 Hours up to 6 AM 03/29/21 06:00 Intake Total 760 ml Balance 760 ml Laboratory Data 24H LABS Laboratory Tests 2 03/28/21 17:10: Whole Blood Ionized Calcium 7.1*H 03/28/21 19:52: Prothrombin Time 13.5, Prothromb Time International Ratio 0.99, Activated Partial Thromboplast Time 23.0L 03/28/21 21:05: Anion Gap 2L, Glomerular Filtration Rate 11.4L, Calcium Level 14.6*H 03/29/21 07:01: Anion Gap 6L, Glomerular Filtration Rate 11.5L, Calcium Level 13.3H, Nucleated Red Blood Cells % (auto) 0.0, Total Bilirubin 0.4, Aspartate Amino Transf (AST/SGOT) 17, Alanine Aminotransferase (ALT/SGPT) 17, Alkaline Phosphatase 32L, Total Protein 5.1#L, Albumin 2.4#L, Albumin/Globulin Ratio 0.9L CBC/BMP Laboratory Tests 03/28/21 21:05 03/29/21 07:01 Microbiology Microbiology 03/28/21 Blood Culture - Preliminary, Resulted No growth after 24 hours . All specim... 03/28/21 Blood Culture - Preliminary, Resulted No growth after 24 hours . All specim... Merlyn Callahan MD Mar 29, 2021 15:55
--- NOTE | 2021-03-29 15:58 | REP ---
INDICATION: hypercalcemia, renal failure. COMPARISON: AP portable 03/28/2021 TECHNIQUE: Noncontrast scanning through the chest with coronal and sagittal reconstructions. FINDINGS: Of the lungs are well inflated some minor fibrotic changes in the paraspinal region medial basal segment right lower lobe. Minimal cylindrical bronchiectatic change but no infiltrate, effusion, nodule or mass. No calcified pleural plaque or pleural thickening heart is not enlarged and there is no pericardial thickening or effusion. Moderate-sized hiatal hernia noted. No pathologic sized mediastinal or hilar adenopathy. Calcifications aortic arch without aneurysm. See no axillary or supraclavicular mass. Bone windows show the sternum, manubrium, medial clavicles, portions of the visualized scapula, humeral heads and ribs all intact without acute finding. Thoracic spine shows marginal osteophytes and some kyphosis but no compression deformity or destructive lesion. Atherosclerotic calcification of the left renal artery noted near the hilum. A both renal arteries have calcium at their origins the aorta shows no aneurysm and has scattered calcifications throughout its visible lower thoracic and upper abdominal course no periaortic, other retroperitoneal or mesenteric lymphadenopathy. Prior cholecystectomy with clips in the gallbladder fossa. Spleen unremarkable. The visualized portion of liver intact. Pancreas unremarkable. Adrenal glands normal upper poles kidneys without mass IMPRESSION: 1. Some minor fibrotic changes medial basal segment right lower lobe with the lungs otherwise clear of infiltrate, nodule, effusion or mass. There is some minor cylindrical bronchiectasis. No pleural plaque, lung mass or other significant lung finding. 2. No mediastinal, hilar, axillary or supraclavicular adenopathy nor mass. 3. Heart grossly unremarkable. Aorta with calcifications but no aneurysm. 4. Moderate-sized hiatal hernia. Some degenerative changes in the spine. Prior cholecystectomy. Nothing acute. <Electronically signed by Greg Hebert > 03/29/21 [id number]
--- NOTE | 2021-03-29 16:09 | REP ---
INDICATION: hypercalcemia, renal failure. COMPARISON: 05/23/2019 TECHNIQUE: Scanning through the abdomen and pelvis with coronal and sagittal reconstructions provided. No IV or oral contrast used. FINDINGS: See the CT chest report this date for discussion of the lung bases. There is a moderate-sized hiatal hernia. Stomach otherwise unremarkable. There is no hepatosplenomegaly, focal hepatic or splenic mass, intrahepatic biliary dilatation nor perihepatic ascites. Clips in the gallbladder fossa with gallbladder surgically absent. Some fatty atrophy of the pancreatic head region all body and tail are grossly unremarkable no inflammatory changes, masses or calcification there. Atherosclerotic calcifications of the abdominal aorta without aneurysm noted. No periaortic, other retroperitoneal or mesenteric pathologic sized lymphadenopathy small bowel loops with the some fluid but no abnormal dilatation or air-fluid levels. No inflammatory changes in the mesentery adjacent the bowel loops. Scattered stool and gas in the colon the appendix seen and normal there is an appendicoliths near the orifice of the appendix at the cecal tip. No sign of colitis or diverticulitis in the abdominal portion of the colon adrenal glands symmetric and unchanged. No mass or nodularity. The kidneys are unchanged in size with the left larger than the right which is slightly atrophic and has a scar posteriorly in the lower pole minor scarring upper pole on the left and laterally in the lower pole. Sinus lipomatosis noted no hydronephrosis, stone or renal mass. Some calcifications in renal arteries at their origins and at the left hilum. Colon shows no sign of colitis or diverticulitis, stricture or mass. Bone windows show degenerative disc the changes in the thoracic and lumbar spine with a few mm anterolisthesis of L4 on 5 due to facet arthropathy. No compression deformity or destructive lesion visualized ribs were intact CT pelvis: Sacrum, SI joints, pelvis and hips with some minimal degenerative change but no destructive lesion or fracture. Small bone island in the left side of the symphysis pubis, unchanged. Distal left colon, sigmoid and rectum unremarkable small bowel loops intact uterus tilted towards the right not enlarged no pelvic mass or free fluid no pelvic lymphadenopathy. There is no ventral or inguinal hernia nor pathologic sized inguinal adenopathy. IMPRESSION: 1. Some mild cortical atrophy on the right compared to left kidney but no hydronephrosis, mass, cyst or renal stone disease. 2. Small hiatal hernia unchanged. Next fatty atrophy of the pancreatic head as before. 3. Small bowel loops and colon without acute finding there is no ventral or inguinal hernia nor pathologic sized adenopathy. 4. Solid organs in the upper abdomen intact. There is a prior cholecystectomy. <Electronically signed by Greg Hebert > 03/29/21 [id number]
[2021-03-29] MEDS: PRAVASTATIN 20 MG TAB PO SCH (20:52)
[2021-03-29] MEDS: traZODone 50 MG TAB PO SCH (20:52)
[2021-03-29 21:00] VITALS: BP_SYST 129; BP_SYST 134; BP_SYST 136; BP_DIAS 57; BP_DIAS 70; BP_DIAS 72
[2021-03-30] MEDS: NS 1,000 ML IV SCH (06:21)
[2021-03-30] MEDS: LEVOTHYROXINE 50MCG TABLET (0.05MG) PO SCH (06:21)
--- NOTE | 2021-03-30 07:04 | CR ---
NEPHROLOGY CONSULTATION DATE: 03/29/2021 REQUESTING PHYSICIAN: Merlyn Callahan M.D. CONSULTING PHYSICIAN: Elfego Leon D.O. REASON FOR CONSULTATION: Hypercalcemia and acute renal failure. HISTORY OF PRESENT ILLNESS: Miss Alka Coronel is a 75-year-old female. She is an office patient of Dr. Beto Leon. She has a past medical history of chronic kidney disease stage 3b with a baseline creatinine of around 1.7. The patient also has a history of hypertension, hypothyroidism, secondary hyperparathyroidism of renal origin, anemia, dyslipidemia, gastroesophageal reflux disease, and multiple other comorbid conditions mentioned below. For her secondary hyperparathyroidism, the patient takes daily Calcitriol 0.25 mcg, and she also takes daily vitamin D supplementation. The patient tells me that her collaborating supervising physician had recently advised her to also take calcium tablets which she had been doing on a regular basis. Then the patient notes that over the past 2 weeks she had had increasing nausea and heartburn symptoms and so the patient started to take several tablets of Tums on a daily basis for the past 2 weeks. The patient states that her nausea and heartburn persisted and worsened and she started to develop episodes of vomiting and also reports that she collapsed at home in her bathroom after a particularly strenuous bout of vomiting. She denies any hematemesis and she attributed her nausea and abdominal pain to heartburn and to her known hiatal hernia. After a second episode of vomiting collapse and syncope, the patient presented to the Emergency Department for further evaluation, and in the Emergency Department the patient was noted to be hypertensive with systolic 160's to 180's, but she was otherwise afebrile and hemodynamically stable and saturating well on room air. Laboratory studies revealed renal failure with a creatinine of 3.7, BUN of 44, and significant hypercalcemia with calcium level of 15.9. The patient was admitted and started on IV hydration and all offending medications were held. A nephrology evaluation was requested in view of the patient's renal failure and marked hypercalcemia. The patient was seen and examined by myself this morning at the bedside. She reports her stomach is feeling more settled now. After receiving IV fluids, she reports that she has also noticed that she is urinating more. She denies any shortness of breath or diarrhea. PAST MEDICAL HISTORY: The patient's past medical history is significant for: 1. Chronic kidney disease stage 3b. 2. Secondary hyperparathyroidism of renal origin. 3. Hiatal hernia. 4. Anemia. 5. Gastroesophageal reflux disease. 6. Dyslipidemia. 7. Obesity. 8. Depression. 9. Hypertension. 10. Hypothyroidism. 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 12. Varicose veins. PAST SURGICAL HISTORY: The patient's past surgical history is significant for: 1. Total hysterectomy in 1998. 2. Cholecystectomy in 2013. FAMILY HISTORY: Mother due to heart disease and ovarian cancer. Father due to Alzheimer's disease. One sister with hypertension and diabetes. SOCIAL HISTORY: The patient is . She lives with her spouse. She is retired. She is a never smoker. No alcohol or drug use. ALLERGIES: 1. Bananas. 2. Latex. HOME MEDICATIONS: 1. Aspirin 81 mg p.o. daily. 2. Benadryl 25 mg p.r.n. 3. Biotin 5,000 mcg p.o. daily. 4. BuSpar 5 mg p.o. three times daily. 5. Calcitriol 0.25 mcg p.o. daily. 6. Calcium 600 mg p.o. daily. 7. Vitamin D 25 mcg p.o. daily. 8. Glucosamine 1,000 mg p.o. daily. 9. Hydralazine 25 mg p.o. three times daily. 10. Levothyroxine 50 mcg p.o. daily. 11. One A Day Women's one tablet daily. 12. Omeprazole 20 mg p.o. twice daily. 13. Oxybutynin 5 mg p.o. daily. 14. Potassium Chloride 10 mEq p.o. daily. 15. Potassium Citrate 10 mL p.o. twice daily. 16. Pravastatin 40 mg p.o. q. h.s. 17. Spironolactone 25 mg p.o. daily. 18. Trazodone 50 mg p.o. q. h.s. REVIEW OF SYSTEMS: Constitutional: She reports generalized weakness and fatigue. Eyes: She denies visual changes or tearing. ENT: She denies any odynophagia or rhinorrhea, epistaxis. Cardiac: She reports a history of hypertension and dyslipidemia and varicose veins. Respiratory: She denies shortness of breath or cough. Gastrointestinal: She reports gastroesophageal reflux disease, reports recent nausea and vomiting, reports hiatal hernia. Denies depression. Genitourinary: She reports improved urine output since coming to the hospital. Denies dysuria. Endocrine: She reports hypothyroidism and secondary hyperparathyroidism. Hematologic: She reports anemia of chronic kidney disease. Denies anticoagulant use. Musculoskeletal: She denies myalgias, arthralgias or gout. Neurologic: She reports recent episode of syncope. Denies history of known seizures. Psychiatric: She reports depression. Skin: She denies any new rashes or ulcers. The remainder review of systems is negative or as per HPI. PHYSICAL EXAMINATION: VITAL SIGNS: Temperature 97.7, pulse 69, respiratory rate 18, blood pressure 129/57, saturating 94% on room air. INTAKE AND OUTPUT: Intake yesterday was 700. There are five voids recorded since she came to the hospital. GENERAL APPEARANCE: The patient was seen sitting in the chair, elderly female, awake, alert, oriented x3, comfortable, in no distress. HEENT: The extraocular muscles are intact. Tongue is moist. NECK: Supple. Jugular veins were not elevated. HEART: Sounds are regular, S1, S2. There is trace edema and varicose veins in the legs. LUNGS: Clear to auscultation bilaterally. No crackles, rales, rhonchi or wheeze. ABDOMEN: Obese, soft and nontender. There are bowel sounds. GENITOURINARY: There is no Barahona catheter noted. EXTREMITIES: There is no clubbing or cyanosis. There is some edema associated with her varicosities. NEUROLOGIC: She is oriented x3, interactive and conversational at baseline mentation. LABORATORY STUDIES: Sodium 138, potassium 4.0, bicarbonate 29, BUN 42, creatinine 4.0, calcium on admission was 15.9. Current calcium is 13.3, albumin 2.4, vitamin D 25 equals 27, parathyroid hormone is 26. Urinalysis was negative for blood and protein. Blood cultures show no growth for 25 hours times two sets. Lactic acid 1.4, AST ALT within normal limits. IMAGING: CT of the abdomen and pelvis shows no obstructive uropathy, shows chronic hiatal hernia. CT of the chest, non-contrast shows clear lungs without infiltrate, nodule, effusion or mass and a moderate sized hiatal hernia. INPATIENT MEDICATIONS: The patient was receiving normal saline at 125 mL an hour. I have cut it down to normal saline at 60 mL an hour. She is on: 1. Aspirin 81 mg p.o. twice daily. 2. BuSpar 5 mg p.o. three times daily. 3. Heparin 5,000 units subcutaneously q. 12 hourly. 4. Hydralazine 25 mg p.o. three times daily. 5. Synthroid 50 mcg p.o. daily. 6. Omeprazole 40 mg p.o. twice daily. 7. Oxybutynin 5 mg daily. 8. Pravastatin 40 mg p.o. q. h.s. 9. Trazodone 50 mg p.o. q. h.s. PROBLEMS: 1. Acute renal failure superimposed on chronic kidney disease stage 3b in the setting of hypercalcemia and pre-renal state - The patient reported a 2-week history of nausea and decreased oral intake and then eventually vomiting. I would continue her on IV fluids at this time. She is clinically dry. She is noted improving urine output since coming to the hospital and receiving IV fluids, and we will monitor her labs. I am hopeful that she will have recovery of renal function. Her current medications are all acceptable for current GFR. 2. Hypercalcemia it is secondary to multiple offending medications she takes Calcitriol 0.25 mcg p.o. daily. She also recently started taking calcium tablets daily. She also takes vitamin D daily, and over the past 2 weeks while she was nauseous and complaining of heartburn, she was taking several tablets of Tums (calcium carbonate) daily. Hypercalcemia is also secondary to her use of the previously mentioned drugs in the setting of relative hypovolemia. All offending medications have been stopped. She is receiving judicious IV fluids. I also put her on Calcitonin which we will do for a total of 6 doses. Her calcium level is improving. I am going hold off on any further pharmacologic treatment of hypercalcemia. She is not suitable for bisphosphonates because of kidney injury. Her PCH is appropriately suppressed and given that there is no proteinuria, I will not work up with SPEP or UPEP at this time. 3. Hypertension - blood pressures are well controlled with Hydralazine at this time. 4. Nausea, vomiting, gastroesophageal reflux disease and hiatal hernia managed by the Primary Team. She may need to see Gastroenterology as an outpatient as she reports her symptoms are not controlled with proton pump inhibitor. 5. Anemia - hemoglobin is 9.7 on the latest labs and I will get iron studies.
[2021-03-30 07:20] LABS: HEMATOCRIT 26.9 % (36.0-47.0); HEMOGLOBIN 8.7 g/dl (12.0-15.5); MEAN CORPUSCULAR HEMOGLOBIN 29.5 pg (27.0-33.0); MEAN CORPUSCULAR HGB CONC 32.3 g/dl (32.0-36.5); MEAN CORPUSCULAR VOLUME 91.2 fl (80.0-96.0); PLATELET COUNT, AUTOMATED 239 10^3/uL (150-450); RED BLOOD COUNT 2.95 10^6/uL (4.00-5.40); WHITE BLOOD COUNT 6.3 10^3/uL (4.0-10.0)
[2021-03-30 07:46] LABS: ALT/SGPT 15 U/L (12-78); BILIRUBIN,TOTAL 0.2 MG/DL (0.2-1.0); BLOOD UREA NITROGEN 40 MG/DL (7-18); CALCIUM LEVEL 11.4 MG/DL (8.8-10.2); CARBON DIOXIDE LEVEL 28 MEQ/L (21-32); CHLORIDE LEVEL 105 MEQ/L (98-107); CREATININE FOR GFR 3.88 MG/DL (0.55-1.30); FERRITIN 20 NG/ML (8-252); GLOMERULAR FILTRATION RATE 12.1 (>39); GLUCOSE, FASTING 105 MG/DL (70-100); IRON (FE) 29 UG/DL (50-170); POTASSIUM SERUM 3.9 MEQ/L (3.5-5.1); SODIUM LEVEL 141 MEQ/L (136-145); TOTAL IRON BINDING CAPACITY 242 UG/DL (250-450); TOTAL PROTEIN 4.8 GM/DL (6.4-8.2)
[2021-03-30 08:00] LABS: NT-PRO BNP 1591 PG/ML (<125)
[2021-03-30 08:20] VITALS: BP 138/72
[2021-03-30] MEDS: oxyBUTYnin *DITROPAN XL* 5 MG TABCR PO SCH (09:12)
[2021-03-30] MEDS: busPIRone 5 MG TAB PO SCH ×3 (09:13→21:00)
[2021-03-30] MEDS: ASPIRIN 81MG ENTERIC TABLET PO SCH ×2 (09:14→21:02)
[2021-03-30] MEDS: **hydrALAZINE HCL** 25 MG TAB PO SCH ×3 (09:14→21:02)
[2021-03-30] MEDS: OMEPRAZOLE 20 MG CAP PO SCH ×2 (09:14→21:01)
[2021-03-30] MEDS: HEPARIN SOD (PORCINE) 5000UNITS/ML 1ML VIAL/SYRINGE SQ SCH ×2 (09:15→21:01)
[2021-03-30] MEDS: NYSTATIN 100,000 UNITS/GM TOPICAL PWD 15 GM TOP SCH ×2 (09:16→21:02)
[2021-03-30] MEDS: CALCITONIN SALMON (MIACALCIN) 400INTERNATIONAL UNITS/2ML INJ (J0630) SQ SCH ×2 (09:16→21:00)
[2021-03-30 10:03] VITALS: BP_SYST 113; BP_SYST 118; BP_SYST 121; BP_DIAS 52; BP_DIAS 62; BP_DIAS 63
--- NOTE | 2021-03-30 11:37 | ECHO ---
ECHOCARDIOGRAM DATE OF PROCEDURE: 03/29/2021 Age: 75 Gender: Height: 163 cm Weight: 79 kg REFERRING PROVIDER: Dr. Merlyn Callahan PATIENT LOCATION: Room 4229 REASON FOR STUDY: Syncope 2D MEASUREMENTS: IVS 1.3 cm LV 3.9 cm LVPW 1.3 cm LA 3.3 cm Aorta 2.8 cm DOPPLER MEASUREMENT Peak velocity across the aortic valve 1.6 m/s Peak velocity across the LVOT 1.4 m/s Peak gradient across the aortic valve 10 mmHg Mean gradient across the aortic valve 6 mmHg Mitral E 0.9 Mitral A 1.0 with a ratio of 0.9 Maximum tricuspid valve velocity 2.8 m/s 2D COMMENTS: 1. Normal left ventricular size with mildly increased left ventricular wall thickness and a hyperdynamic left ventricle. The estimated left ventricular systolic ejection fraction is 65% to 70%. 2. Normal left atrium. Normal right atrium and right ventricle. 3. The atrial septum appeared to be normal without evidence of defect or shunt. 4. Normal aortic root. 5. No pericardial effusion seen. 6. The aortic valve, mitral valve, and tricuspid valve appeared to be normal, as well as the pulmonic valve and proximal pulmonary arteries branches. 7. The inferior vena cava was not visualized. DOPPLER: It detects trace mitral regurgitation and [id number] tricuspid regurgitation. The calculated pulmonary artery systolic pressure varies between 30 to 40 mmHg. Abnormal relaxation pattern was noted across the mitral valve leaflets, as well as the mitral valve annulus consistent with features of grade 1 left ventricular diastolic dysfunction. IMPRESSION: 1. Normal global left ventricular systolic function with mild concentric left ventricular hypertrophy. There are some features of grade 1 left ventricular diastolic dysfunction manifested by abnormal relaxation. 2. Trace mitral regurgitation. 3. Hshej-uh-xskw tricuspid regurgitation with mild pulmonary hypertension.
--- NOTE | 2021-03-30 13:09 | IPN ---
PROGRESS NOTE DATE: 03/30/2021 SUBJECTIVE: Ms. Coronel is seen and examined this morning at the bedside. She denies anymore nausea or heartburn sensation. She is tolerating oral intake. Laboratory studies show resolving hypercalcemia but ongoing kidney injury. Her urine output has not been quantified. She denies any shortness of breath or diarrhea. OBJECTIVE: VITAL SIGNS: Temperature is 98.1, pulse is 81, respiratory rate is 15, blood pressure is 138/72, saturating 90% on room air. INTAKE AND OUTPUT: Intake yesterday was 1380. There were five voids recorded, weight on the bed scale today is 89.2 kg. GENERAL: Patient is seen awake, alert and oriented x3, comfortable in no distress. HEENT: Extraocular muscles are intact. Tongue is moist. NECK: Supple. Jugular veins are not elevated. HEART: Regular, S1 and S2. There is trace to 1+ edema in the legs associated with varicosities bilaterally. LUNGS: Clear to auscultation. No crackle, rales or rhonchus. She is comfortable on room air. ABDOMEN: Obese, soft and nontender. GENITOURINARY: There is no Barahona catheter. EXTREMITIES: There is some edema associated with her chronic varicosities. NEUROLOGIC: She is oriented x3, interactive, conversational. SKIN: Warm and dry and shows some pallor. LABORATORY DATA: Hemoglobin 8.7, platelets 239,000, sodium 141, potassium 3.9, bicarbonate 28, BUN 40, creatinine 3.8, calcium 11.4, iron 29, P-sat 12%, ferritin 20, albumin 2.0. Magnesium level pending. Blood cultures: No growth 24 hours x2 sets. INPATIENT MEDICATIONS: Her IV fluids are being stopped this afternoon. She is ordered for Venofer 200 mg today and 200 mg IV tomorrow. She has two doses left of calcitonin. The remainder of medications are all unchanged as compared to yesterday. PROBLEMS: 1. Acute kidney injury superimposed on CKD Stage IIIB in the setting of hypercalcemia and dehydration. The patient reported a two week history of nausea with decreased oral intake and with inadvertent excessive use of calcium containing medications including daily use of Tums. She is tolerating oral intake now. I am going to stop IV fluids this afternoon. I am hopeful that she is going to have ongoing recovery of renal function and I would keep her in the hospital until creatinine further downtrends which I expect it will over the coming 24 to 48 hours. 2. Hypercalcemia secondary to multiple offending medications (Calcitriol 0.25 mcg p.o. daily, calcium tablet daily, vitamin D daily and also recent use of several tablets of Tums daily) and also complicated by nausea, vomiting and dehydration. All offending medications have been stopped. She received IV fluids. There are two more doses of Calcitonin still pending (total six doses were ordered). I expect her calcium level should normalize within the coming 24 hours. She is not suitable for bisphosphonates because of kidney injury. 3. Hypertension, blood pressures are adequately controlled with hydralazine. 4. Nausea, vomiting, GERD and hiatal hernia. She reports symptomatic improvement. Primary team increased the dose of PPI. I advised her not to use Tums in the outpatient setting. 5. Iron deficiency anemia. She is ordered for two doses of Venofer while she is here. She is extremely iron deplete.
[2021-03-30 13:44] LABS: ALBUMIN 2.58 GM/DL (3.29-5.55); ALBUMIN % 53.7 % (55.8-66.1); ALPHA-1-GLOBULIN % 6.9 % (2.9-4.9); ALPHA-1-GLOBULINS 0.33 GM/DL (0.17-0.41); ALPHA-2-GLOBULINS 0.74 GM/DL (0.42-0.99); ALPHA-2-GLOBULINS % 15.4 % (7.1-11.8); BETA-1-GLOBULINS 0.36 GM/DL (0.28-0.60); BETA-1-GLOBULINS % 7.5 % (4.7-7.2); BETA-2-GLOBULINS 0.28 GM/DL (0.19-0.55); BETA-2-GLOBULINS % 5.9 % (3.2-6.5); GAMMA GLOBULIN % 10.6 % (11.1-18.8); GAMMA GLOBULINS 0.51 GM/DL (0.65-1.58)
[2021-03-30 14:00] VITALS: BP 132/70
[2021-03-30] MEDS ORDERED: IRON SUCROSE 200 MG in NS 100 ML IV SCH (14:00)
[2021-03-30] MEDS: IRON SUCROSE 200 MG in NS 100 ML IV SCH (14:44)
--- NOTE | 2021-03-30 15:50 | IPNPDOC ---
Date Seen The patient was seen on 03/30/21. Progress Note SUBJECTIVE: Creatinine and calcium improving slowly. Swelling upper ext decreased. Heartburn improved as well with BID dosing PPI. Denies chest pain, shortness of breath, nausea, vomiting. OBJECTIVE PHYSICAL EXAMINATION: VS: Please see below CONSTITUTIONAL: No acute distress, resting comfortably, AAO x 3 EYES: PERRLA, EOM intact, corrective lenses in place HENT, MOUTH: Normocephalic, atraumatic, moist mucous membranes NECK: SUPPLE, no JVD, no lymphadenopathy, no carotid bruit CV: Regular rate and rhythm, S1S2 normal, no murmurs/rubs/gallops RESPIRATORY: Clear to auscultation bilaterally, no rales/rhonchi/wheezes GI: Obese abdomen, BS positive in 4 quadrants, soft, nontender, nondistended, no rebound or guarding, no organomegaly : Deferred MUSCULOSKELETAL: Normal ROM. No cyanosis, clubbing, swelling, joint deformity, extremity edema nonpitting in all extremities INTEGUMENTARY: Intact, no rashes, no lesions, no erythema NEUROLOGIC: Cranial Nerves II-XII are intact, no focal deficits PSYCHIATRIC: Mood and affect are normal LABORATORY DATA: Please see below IMAGING: Echocardiogram 03/28/21: 1. Normal global left ventricular systolic function with mild concentric left ventricular hypertrophy. There are some features of grade 1 left ventricular diastolic dysfunction manifested by abnormal relaxation. EF 65-70% 2. Trace mitral regurgitation. 3. Ijudo-tu-wgzc tricuspid regurgitation with mild pulmonary hypertension. CT of the chest: 1. Some minor fibrotic changes medial basal segment right lower lobe with the lungs otherwise clear of infiltrate, nodule, effusion or mass. There is some minor cylindrical bronchiectasis. No pleural plaque, lung mass or other significant lung finding. 2. No mediastinal, hilar, axillary or supraclavicular adenopathy nor mass. 3. Heart grossly unremarkable. Aorta with calcifications but no aneurysm. 4. Moderate-sized hiatal hernia. Some degenerative changes in the spine. Prior cholecystectomy. Nothing acute. CT abdomen/pelvis: 1. Some mild cortical atrophy on the right compared to left kidney but no hydronephrosis, mass, cyst or renal stone disease. 2. Small hiatal hernia unchanged. Next fatty atrophy of the pancreatic head as before. 3. Small bowel loops and colon without acute finding there is no ventral or inguinal hernia nor pathologic sized adenopathy. 4. Solid organs in the upper abdomen intact. There is a prior cholecystectomy. Chest x-ray: No acute cardiopulmonary abnormality CT head: No acute intracranial abnormality ASSESSMENT: 75-year-old female with PMH of hypocalcemia, anemia, hiatal hernia, GERD, hyperlipidemia, chronic kidney disease stage III admitted to medicine service for further treatment of acute kidney injury on chronic kidney disease stage III, hypercalcemia. PLAN: Acute kidney injury on CKD Stage III possibly multifactorial to home medications, prerenal causes with dehydration, poor PO intake -Last creatinine on file 2.03 in 02/2021 -Cr today improving 3.88 -UA neg -Per nephrology, c/w IVFs currently at lower rate. They are hopeful that she is going to have ongoing recovery of renal function. -Daily labs, avoid nephrotoxic meds Hypercalcemia, acute likely secondary to home medications, supplementation. r/o malignancy -No history of hypercalcemia in the past, no malignancy known, imaging above neg -Taking many TUMS (calcium carbonate), home calcitriol, additional calcium supplement, vitamin D, drinking milk daily -PTH within normal limits, ionized calcium high -C/w IVFs, increased dose of calcitonin (total of 6 doses) -Not suitable for bisphosphonates because of kidney injury -Nephrology following Syncope likely vasovagal episodes -ECG abnormal but no events overnight -Neuro checks wnl -Echocardiogram above -No events on tele -CT head neg -orthostatics neg -No episodes since admission and getting hydration HFpEF, not currently in exacerbation -Echo above, BNP elevated at 1591 -Remains on RA, denies chest pain, incr SOB -Avoiding diuretics -Not on BB -Monitor for s/s of fluid overload -2 gm sodium diet, I&O's closely followed, daily wt JOSE G -H/H dropped slightly but could be slight dilutional component -Low iron studies -Venofer daily Hypertension -BP able -Holding spironolactone, continue hydralazine Chronic nausea/vomiting/heartburn secondary to GERD, hiatal hernia -Improved with incr dose of PPI -States this is a long-standing issue and it has not changed much in frequency but does feel as though burning of her chest at times has worsened -Follow-up as outpatient if remains stable -Zofran when necessary, PPI BID Hyperlipidemia -Continue home medication Depression -Continue home medication Hypothyroidism -TSH within normal limits -Continue home medication History of hypokalemia -Holding potassium supplement for now with acute kidney injury severe -Follow-up labs as discussed above Questionable cardiac history, aside from CHF -On aspirin and statin medication but the patient does not know her cardiac history -Follows with Dr. Ratliff in [place], [place] -Continue home meds for now DVT prophylaxis -Heparin subcutaneous DISPOSITION: Admitted as acute inpatient. Nephrology following . PT: cleared. VS, I&O, 24H, Fishbone Vital Signs/I&O Vital Signs Date Time Temp Pulse Resp B/P (MAP) Pulse Ox O2 Delivery O2 Flow Rate FiO2 03/30/21 14:00 97.5 74 16 132/70 (90) 94 Room Air I&O- Last 24 Hours up to 6 AM 03/30/21 06:00 Intake Total 1620 ml Output Total 0 ml Balance 1620 ml Laboratory Data 24H LABS Laboratory Tests 2 03/30/21 07:07: Nucleated Red Blood Cells % (auto) 0.0, Anion Gap 8, Glomerular Filtration Rate 12.1L, Calcium Level 11.4H, Iron Level 29L, Total Iron Binding Capacity 242L, Transferrin % Saturation 12.0L, Ferritin 20, Total Bilirubin 0.2, Aspartate Amino Transf (AST/SGOT) 14, Alanine Aminotransferase (ALT/SGPT) 15, Alkaline Phosphatase 29L, NZ-Muy-H-Type Natriuretic Peptide 1591H, Total Protein 4.8L, Total Protein (PEP) 4.8L, Albumin 2.0L, Albumin (%) 53.7L, Syrov-4-Qgdtkzdwb (%) 6.9H, Luwrm-8-Dpryjcsnm (%) 15.4H, Gamma Globulins (%) 10.6L, Nyqot-6-Wfaezcszu 0.33, Crwyj-8-Resioyrpt 0.74, Gamma Globulins 0.51L, Protein Electrophoresis Interpret SEE COMMENT, Albumin (PEP) 2.58L, Albumin/Globulin Ratio 0.7L, Gzeo-0-Orlfsbpw 0.36, Danl-0-Frjmcioh (%) 7.5H, Awvm-3-Eyocteln 0.28, Cxip-1-Tgqqzsfz (%) 5.9, Serum PEP Pathologist Review REV'D BY Dawood CARRASCO CBC/BMP Laboratory Tests 03/30/21 07:07 Microbiology Microbiology 03/28/21 Blood Culture - Preliminary, Resulted No Growth after 48 hours. All Specime... 03/28/21 Blood Culture - Preliminary, Resulted No Growth after 48 hours. All Specime... Merlyn Callahan MD Mar 30, 2021 15:50
[2021-03-30] MEDS: traZODone 50 MG TAB PO SCH (21:01)
[2021-03-30] MEDS: PRAVASTATIN 20 MG TAB PO SCH (21:01)
[2021-03-31 04:57] LABS: HEMATOCRIT 25.9 % (36.0-47.0); HEMOGLOBIN 8.5 g/dl (12.0-15.5); MEAN CORPUSCULAR HEMOGLOBIN 29.9 pg (27.0-33.0); MEAN CORPUSCULAR HGB CONC 32.8 g/dl (32.0-36.5); MEAN CORPUSCULAR VOLUME 91.2 fl (80.0-96.0); PLATELET COUNT, AUTOMATED 254 10^3/uL (150-450); RED BLOOD COUNT 2.84 10^6/uL (4.00-5.40); WHITE BLOOD COUNT 6.4 10^3/uL (4.0-10.0)
[2021-03-31 05:23] LABS: BILIRUBIN,TOTAL 0.1 MG/DL (0.2-1.0); CALCIUM LEVEL 11.2 MG/DL (8.8-10.2); CREATININE FOR GFR 3.59 MG/DL (0.55-1.30); GLOMERULAR FILTRATION RATE 13.2 (>39); MAGNESIUM LEVEL 1.6 MG/DL (1.8-2.4); POTASSIUM SERUM 3.7 MEQ/L (3.5-5.1); TOTAL PROTEIN 4.7 GM/DL (6.4-8.2)
[2021-03-31] MEDS: LEVOTHYROXINE 50MCG TABLET (0.05MG) PO SCH (06:22)
[2021-03-31] MEDS ORDERED: MAGNESIUM OXIDE 400MG TAB (MAG-OX) PO ONE (09:15)
[2021-03-31] MEDS: **hydrALAZINE HCL** 25 MG TAB PO SCH ×3 (10:02→20:50)
[2021-03-31] MEDS: HEPARIN SOD (PORCINE) 5000UNITS/ML 1ML VIAL/SYRINGE SQ SCH ×2 (10:02→20:51)
[2021-03-31] MEDS: ASPIRIN 81MG ENTERIC TABLET PO SCH ×2 (10:03→20:49)
[2021-03-31] MEDS: OMEPRAZOLE 20 MG CAP PO SCH ×2 (10:03→20:49)
[2021-03-31] MEDS: NYSTATIN 100,000 UNITS/GM TOPICAL PWD 15 GM TOP SCH ×2 (10:03→20:51)
[2021-03-31] MEDS: CALCITONIN SALMON (MIACALCIN) 400INTERNATIONAL UNITS/2ML INJ (J0630) SQ SCH (10:03)
[2021-03-31] MEDS: oxyBUTYnin *DITROPAN XL* 5 MG TABCR PO SCH (10:06)
[2021-03-31] MEDS: busPIRone 5 MG TAB PO SCH ×3 (10:06→20:49)
[2021-03-31 10:44] LABS: IMMUNOTYPING SERUM IGG ABNORMAL (NORMAL); IMMUNOTYPING SERUM KAPPA ABNORMAL (NORMAL)
[2021-03-31 14:00] VITALS: BP 128/51
[2021-03-31] MEDS: IRON SUCROSE 200 MG in NS 100 ML IV SCH (15:23)
--- NOTE | 2021-03-31 15:34 | IPN ---
PROGRESS NOTE DATE: 03/31/2021 SUBJECTIVE: Alka is seen and examined this morning at the bedside. She offers no complaints. Tells me that she is tolerating oral intake. No more nausea or heartburn. Her laboratory studies show improving hypercalcemia and improving serum creatinine. Her SPEP was abnormal. We are getting immunotyping and serum-free light chain. Patient denies any shortness of breath or diarrhea. I have encouraged her to try and drink at least 2 liters of fluid today. Temperature 99.5, pulse 77, respiratory rate 16, blood pressure 137/57, saturating 90%-96% on room air. Intake yesterday was 1.9 liters. Weight in the bed scale today is 89.9 kg. GENERAL: Patient is seen lying in bed, elderly female, awake, alert, oriented times three, comfortable in no distress. Extraocular muscles are intact. Tongue is moist. Neck is supple. Jugular veins are not elevated. HEART: Sounds are regular, S1, S2. There is chronic trace to 1+ edema in the legs associated with varicosities bilaterally. LUNGS: Clear to auscultation. she is comfortable on room air. There is no crackle, rale, or rhonchus. ABDOMEN: Obese, soft, and nontender. EXTREMITIES: There are varicosities with trace to 1+ edema bilaterally. NEUROLOGIC: She is oriented times three, interactive and conversational. SKIN: Warm and dry. LABORATORY STUDIES: Sodium 140, potassium 3.7, bicarbonate 27, BUN 43, creatinine 3.5, calcium 11.2, magnesium 1.6. Transferrin saturation 12%, ferritin 20. She had an abnormal SPEP with an M spike of 0.14 grams/deciliter. Hemoglobin 8.5, platelets 254. Blood cultures: No growth 72 hours times two sets. ' INPATIENT MEDICATIONS: She is receiving a second dose of intravenous (IV) Venofer today. She has completed six doses of calcitonin. Her remainder of medications is unchanged as compared to yesterday. PROBLEMS: 1. Acute kidney injury superimposed on chronic kidney disease (CKD), stage IIIB, in the setting of hypercalcemia and relative dehydration. The patient reported a 2-week history of nausea with decreased oral intake and with inadvertent excessive use of calcium-containing medication. She is status post IV fluids and calcitonin. Her renal function is slowly recovering. I would keep her in the hospital until creatinine further downtrends, likely over the weekend. 2. Hypercalcemia secondary to multiple offending medications (daily calcitriol, daily calcium tablet, daily vitamin D, and also recent use of several tablets of Tums daily) and also complicated by nausea, vomiting, and dehydration. Patient is status post IV fluids, status post six doses of calcitonin. Her calcium level is still mildly elevated. She is not suitable for bisphosphonates at this time because of kidney injury. We are also working her up further, as she had an abnormal serum protein electrophoresis (SPEP) with M spike. 3. Monoclonal gammopathy. Patient has an M spike with IgG kappa. Serum-free light chains are pending. I did not get a urine protein electrophoresis, as she did not have any significant proteinuria on urinalysis. She will need to be evaluated by hematology for her abnormal SPEP. 4. Hypertension. Blood pressures are adequately controlled with hydralazine monotherapy. 5. Iron deficiency anemia. She is receiving another dose of Venofer today. She is extremely iron deplete. 6. Nausea, vomiting, gastroesophageal reflux disease (GERD), and hiatal hernia in this patient with significant iron deficiency anemia. Patient needs to make sure that she is up-to-date with her colonoscopy, etc. 7. Hypomagnesemia. Primary team gave magnesium oxide supplementation today.
--- NOTE | 2021-03-31 17:33 | IPNPDOC ---
Date Seen The patient was seen on 03/31/21. Progress Note SUBJECTIVE: Calcium improving slowly, abnormal SPEP studies, consulting med/onc. Cr slowly improving. Denies chest pain, shortness of breath, nausea, vomiting. OBJECTIVE PHYSICAL EXAMINATION: VS: Please see below CONSTITUTIONAL: No acute distress, resting comfortably, AAO x 3 EYES: PERRLA, EOM intact, corrective lenses in place HENT, MOUTH: Normocephalic, atraumatic, moist mucous membranes NECK: SUPPLE, no JVD, no lymphadenopathy, no carotid bruit CV: Regular rate and rhythm, S1S2 normal, no murmurs/rubs/gallops RESPIRATORY: Clear to auscultation bilaterally, no rales/rhonchi/wheezes GI: Obese abdomen, BS positive in 4 quadrants, soft, nontender, nondistended, no rebound or guarding, no organomegaly : Deferred MUSCULOSKELETAL: Normal ROM. No cyanosis, clubbing, swelling, joint deformity, extremity edema nonpitting in all extremities INTEGUMENTARY: Intact, no rashes, no lesions, no erythema NEUROLOGIC: Cranial Nerves II-XII are intact, no focal deficits PSYCHIATRIC: Mood and affect are normal LABORATORY DATA: Please see below IMAGING: Echocardiogram 03/28/21: 1. Normal global left ventricular systolic function with mild concentric left ventricular hypertrophy. There are some features of grade 1 left ventricular diastolic dysfunction manifested by abnormal relaxation. EF 65-70% 2. Trace mitral regurgitation. 3. Yumbe-hd-[id number] tricuspid regurgitation with mild pulmonary hypertension. CT of the chest: 1. Some minor fibrotic changes medial basal segment right lower lobe with the lungs otherwise clear of infiltrate, nodule, effusion or mass. There is some minor cylindrical bronchiectasis. No pleural plaque, lung mass or other significant lung finding. 2. No mediastinal, hilar, axillary or supraclavicular adenopathy nor mass. 3. Heart grossly unremarkable. Aorta with calcifications but no aneurysm. 4. Moderate-sized hiatal hernia. Some degenerative changes in the spine. Prior cholecystectomy. Nothing acute. CT abdomen/pelvis: 1. Some mild cortical atrophy on the right compared to left kidney but no hydronephrosis, mass, cyst or renal stone disease. 2. Small hiatal hernia unchanged. Next fatty atrophy of the pancreatic head as before. 3. Small bowel loops and colon without acute finding there is no ventral or inguinal hernia nor pathologic sized adenopathy. 4. Solid organs in the upper abdomen intact. There is a prior cholecystectomy. Chest x-ray: No acute cardiopulmonary abnormality CT head: No acute intracranial abnormality ASSESSMENT: 75-year-old female with PMH of hypocalcemia, anemia, hiatal hernia, GERD, hyperlipidemia, chronic kidney disease stage III admitted to medicine service for further treatment of acute kidney injury on chronic kidney disease stage III, hypercalcemia. PLAN: Acute kidney injury on CKD Stage III possibly multifactorial to home medications, prerenal causes with dehydration, poor PO intake -Last creatinine on file 2.03 in 02/2021 -Cr improving very slowly, now at 3.59 -UA neg -Stopped IVFs today, see how she does with PO intake -Daily labs, avoid nephrotoxic meds -Nephrology following Hypercalcemia, acute likely secondary to home medications, supplementation. r/o MM, MGUS -No history of hypercalcemia in the past, no malignancy known, imaging above neg -Taking many TUMS (calcium carbonate), home calcitriol, additional calcium supplement, vitamin D, drinking milk daily -PTH within normal limits, M spike with IgG kappa, serum free light chains pending -Stopped IVFs, completed tx with calcitonin (total of 6 doses) -Not suitable for bisphosphonates because of kidney injury -We are also working her up further, as she had an abnormal serum protein electrophoresis (SPEP) with M spike. -Dr. Shelton (heme/onc) consulted to see -Nephrology following closely Monoclonal gammopathy -Abnormal SPEP -See above for plan Syncope likely vasovagal episodes -ECG abnormal but no events overnight -Neuro checks wnl -Echocardiogram above -No events on tele -CT head neg -orthostatics neg -No episodes since admission and getting hydration HFpEF, not currently in exacerbation -Echo above, BNP elevated at 1591 -Remains on RA, denies chest pain, incr SOB -Avoiding diuretics -Not on BB -Monitor for s/s of fluid overload -2 gm sodium diet, I&O's closely followed, daily wt JOSE G -H/H dropped slightly but could be slight dilutional component -Low iron studies -S/p Venofer Hypertension -BP able -Holding spironolactone, continue hydralazine Chronic nausea/vomiting/heartburn secondary to GERD, hiatal hernia -Improved with incr dose of PPI -States this is a long-standing issue and it has not changed much in frequency but does feel as though burning of her chest at times has worsened -Follow-up as outpatient if remains stable -Zofran when necessary, PPI BID Hyperlipidemia -Continue home medication Depression -Continue home medication Hypothyroidism -TSH within normal limits -Continue home medication History of hypokalemia -Holding potassium supplement for now with acute kidney injury severe -Follow-up labs as discussed above Questionable cardiac history, aside from CHF -On aspirin and statin medication but the patient does not know her cardiac history -Follows with Dr. Ratliff in [place], [place] -Continue home meds for now DVT prophylaxis -Heparin subcutaneous DISPOSITION: Admitted as acute inpatient. Nephrology following, hem/onc consulted today . PT: cleared. VS, I&O, 24H, Fishbone Vital Signs/I&O Vital Signs Date Time Temp Pulse Resp B/P (MAP) Pulse Ox O2 Delivery O2 Flow Rate FiO2 03/31/21 14:00 97.3 64 18 128/51 (76) 92 Room Air I&O- Last 24 Hours up to 6 AM 03/31/21 06:00 Intake Total 1620 ml Output Total 1250 ml Balance 370 ml Laboratory Data 24H LABS Laboratory Tests 2 03/31/21 04:32: Nucleated Red Blood Cells % (auto) 0.0, Anion Gap 8, Glomerular Filtration Rate 13.2L, Calcium Level 11.2H, Magnesium Level 1.6L, Total Bilirubin 0.1L, Aspartate Amino Transf (AST/SGOT) 16, Alanine Aminotransferase (ALT/SGPT) 15, Alkaline Phosphatase 30L, Total Protein 4.7L, Albumin 2.0L, Albumin/Globulin Ratio 0.7L CBC/BMP Laboratory Tests 03/31/21 04:32 Microbiology Microbiology 03/28/21 Blood Culture - Preliminary, Resulted No Growth after 72 hours. All specime... 03/28/21 Blood Culture - Preliminary, Resulted No Growth after 72 hours. All specime... Merlyn Callahan MD Mar 31, 2021 17:33
--- NOTE | 2021-03-31 20:40 | CR.PDOC ---
General Date of Consultation: Mar 31, 2021 Referring Provider: Merlyn Callahan MD Attending Physician: SANDRA DACOSTA MD Consultation REASON FOR CONSULTATION/CHIEF COMPLAINT: [Monoclonal gammopathy]. HISTORY OF PRESENT ILLNESS: . I had the pleasure of seeing Ms. Alka Coronel in consultation for monoclonal gammopathy. As you know Ms. Coronel is a 75-year-old white female who was admitted on 03/28/2021 through emergency room with history of syncope nausea and vomiting. She was found to have hypercalcemia with calcium level was 15.9 and was treated with IV hydration and calcitonin. Patient recent calcium level was found to be 11.2 today on 03/31/2021. Patient underwent serum protein electroph oresis to find out possible cause of hypercalcemia and monoclonal spike was found to be 0.14 g/dL. Her results of free kappa light chains and free lambda light chains are pending. Currently she is feeling better and is no longer throwing up. It was suspected that her hypercalcemia was likely due to home medication including calcitriol vitamin D and calcium supplements. Also she has been using daily dairy products. Since multiple myeloma also cause hypercalcemia that consideration is being enteritis consideration 2. Overall her general health has been good. She lives alone. Her breathing is good. She has no cough phlegm or wheezing. Denies chest pain or palpitation no headache or dizziness and has no urinary symptoms. She was found to have high creatinine and low GFR likely due to hypercalcemia. She is not a diabetic although she is hypertensive which is under good control. ALLERGIES: Please see below. HOME MEDICATIONS: Please see below. PAST MEDICAL HISTORY: Significant for GERD chronic kidney disease stage III, depression, hypothyroidism, hypertension, hypokalemia and anemia PAST SURGICAL HISTORY: Cholecystectomy and total abdominal hysterectomy FAMILY HISTORY: Mother cervical cancer and coronary artery disease Father of old age at the age of 100. 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 Lives alone. She is following Dr. Leon and follows Dr. Ratliff for her cardiology. PHYSICAL EXAMINATION: VITAL SIGNS: Please see below. GENERAL APPEARANCE: [75-year-old white female lying comfortably in bed in no acute distress]. HEENT: [WNL EOMI oral cavity clear without mucositis or thrush]. RESPIRATORY: [Lungs clear to auscultation percussion]. CARDIOVASCULAR: [RRR normal S1-S2]. ABDOMEN: [Soft mildly distended with normal bowel sounds]. EXTREMITIES: [No pedal edema]. NEUROLOGICAL: [No gross sensory or motor deficit]. PSYCHIATRIC: [Patient does not feel to be anxious or depressed l]. LABORATORY DATA: Please see below. ASSESSMENT/PLAN: Ms. Coronel is a 75 years old white female who has multiple comorbidities and was brought in because of syncopal attacks and GERD and heartburns. She has been on high calcium diet vitamin D supplement and Tums. Hypercalcemia is likely due to these factors although there causes including multiple myeloma and hyperparathyroidism needs to be ruled out. Her monoclonal spike is not very high and it is 140 mg/dL of monoclonal spike which is more consistent with MGUS. Her kappa and lambda light chains are pending. If her light chains come back very high we will consider having light chain disease and patient may require further investigation including 24-hour urine l ight chain, body PET scan and bone marrow aspiration and biopsy. If patient is going home she should have a follow-up at our office as outpatient for further investigations. I talked to the patient in detail about the possibilities and further plan of investigations and she agrees to proceed with that. Vital Signs/I&O Vital Signs Date Time Temp Pulse Resp B/P (MAP) Pulse Ox O2 Delivery O2 Flow Rate FiO2 03/31/21 14:00 97.3 64 18 128/51 (76) 92 Room Air I&O- Last 24 Hours up to 6 AM 03/31/21 06:00 Intake Total 1620 ml Output Total 1250 ml Balance 370 ml Laboratory Data Labs 24H Laboratory Tests 2 03/31/21 04:32: Nucleated Red Blood Cells % (auto) 0.0, Anion Gap 8, Glomerular Filtration Rate 13.2L, Calcium Level 11.2H, Magnesium Level 1.6L, Total Bilirubin 0.1L, Aspartate Amino Transf (AST/SGOT) 16, Alanine Aminotransferase (ALT/SGPT) 15, A lkaline Phosphatase 30L, Total Protein 4.7L, Albumin 2.0L, Albumin/Globulin Ratio 0.7L CBC/BMP Laboratory Tests 03/31/21 04:32 Microbiology Microbiology 03/28/21 Blood Culture - Preliminary, Resulted No Growth after 72 hours. All specime... 03/28/21 Blood Culture - Preliminary, Resulted No Growth after 72 hours. All specime... Allergies Coded Allergies: banana (Verified Allergy, Unknown, 05/23/19) latex (Verified Allergy, Unknown, 05/23/19) Home Medications Scheduled Aspirin (Ecotrin) 81 Mg Tablet.dr, 81 MG PO BID, (Reported) Biotin (Biotin) 5,000 Mcg Tab.rapdis, 5,000 MCG PO DAILY, (Reported) Buspirone HCl (Buspirone HCl) 5 Mg Tablet, 5 MG PO TID, (Reported) Calcitriol (Rocaltrol) 0.25 Mcg Capsule, 0.25 MCG PO DAILY, (Reported) Calcium Carbonate (Calcium) 600 Mg Tablet, 600 MG PO DAILY, (Reported) Cholecalciferol (Vitamin D3) (Vitamin D3) 25 Mcg Tablet, 25 MCG PO DAILY, (Reported) Conjugated Estrogens (Premarin) 0.625 Mg Tablet, 0.625 MG PO DAILY, (Reported) Diphenhydramine HCl (Benadryl) 25 Mg Capsule, 25 MG PO QHS, (Reported) Glucosamine Sulfate Dipot Chlr (Glucosamine) 1,000 Mg Tablet, 1,000 MG PO DAILY, (Reported) Hydralazine HCl (Hydralazine HCl) 25 Mg Tablet, 25 MG PO TID, (Reported) Levothyroxine Sodium (Levothyroxine Sodium) 50 Mcg Tablet, 50 MCG PO DAILY, (Reported) Multivit with Calcium,Iron,Min (Women's Daily Formula) 1 Each Tablet, 1 TAB PO DAILY, (Reported) Omeprazole (Omeprazole) 20 Mg Capsule.dr, 20 MG PO BID, (Reported) Oxybutynin Chloride (Oxybutynin Chloride ER) 5 Mg Tab.er.24, 5 MG PO DAILY, (Reported) Potassium Chloride (Potassium Chloride) 10 Meq Capsule.er, 10 MEQ PO DAILY, (Reported) Potassium Citrate/Citric Acid (Potassium Cit-Citric Acid Soln) 473 Ml Solution, 10 ML PO BID, (Reported) PT TAKES ONCE A DAY, MIXES IN A GLASS OF WATER Pravastatin Sodium (Pravastatin Sodium) 40 Mg Tablet, 40 MG PO QHS, (Reported) Spironolactone (Spironolactone) 25 Mg Tablet, 25 MG PO DAILY, (Reported) Trazodone HCl (Trazodone HCl) 50 Mg Tablet, 50 MG PO QHS, (Reported) OLESYA,SANDRA U. MD Mar 31, 2021 20:40
[2021-03-31] MEDS: traZODone 50 MG TAB PO SCH (20:50)
[2021-03-31] MEDS: PRAVASTATIN 20 MG TAB PO SCH (20:50)
[2021-03-31 22:00] VITALS: BP 142/51
[2021-04-01 06:00] VITALS: BP 122/51
[2021-04-01] MEDS: LEVOTHYROXINE 50MCG TABLET (0.05MG) PO SCH (06:27)
[2021-04-01 06:31] LABS: ALBUMIN 2.3 GM/DL (3.2-5.2); BILIRUBIN,TOTAL 0.2 MG/DL (0.2-1.0); CREATININE FOR GFR 3.27 MG/DL (0.55-1.30); GLOMERULAR FILTRATION RATE 14.7 (>39); TOTAL PROTEIN 5.4 GM/DL (6.4-8.2)
[2021-04-01 06:36] LABS: HEMATOCRIT 28.7 % (36.0-47.0); HEMOGLOBIN 9.5 g/dl (12.0-15.5); MEAN CORPUSCULAR HEMOGLOBIN 30.1 pg (27.0-33.0); MEAN CORPUSCULAR HGB CONC 33.1 g/dl (32.0-36.5); MEAN CORPUSCULAR VOLUME 90.8 fl (80.0-96.0); RED BLOOD COUNT 3.16 10^6/uL (4.00-5.40); WHITE BLOOD COUNT 4.6 10^3/uL (4.0-10.0)
[2021-04-01 07:57] LABS: PLATELET COUNT, AUTOMATED 66 10^3/uL (150-450)
[2021-04-01] MEDS: HEPARIN SOD (PORCINE) 5000UNITS/ML 1ML VIAL/SYRINGE SQ SCH ×2 (09:00→20:26)
[2021-04-01] MEDS: ASPIRIN 81MG ENTERIC TABLET PO SCH ×2 (09:16→20:26)
[2021-04-01] MEDS: **hydrALAZINE HCL** 25 MG TAB PO SCH ×3 (09:16→20:26)
[2021-04-01] MEDS: OMEPRAZOLE 20 MG CAP PO SCH ×2 (09:16→20:25)
[2021-04-01] MEDS: NYSTATIN 100,000 UNITS/GM TOPICAL PWD 15 GM TOP SCH ×2 (09:18→20:26)
[2021-04-01] MEDS: busPIRone 5 MG TAB PO SCH ×3 (09:24→20:56)
[2021-04-01] MEDS: oxyBUTYnin *DITROPAN XL* 5 MG TABCR PO SCH (09:24)
--- NOTE | 2021-04-01 13:04 | IPN ---
NEPHROLOGY PROGRESS NOTE DATE: 04/01/2021 SUBJECTIVE: Mrs. Coronel is seen this morning on her bedside. She is sitting in the chair at the time of my visit and reports feeling well. She is fully awake, alert and oriented times three. She denies any nausea or vomiting and reports good oral intake. PHYSICAL EXAMINATION: VITAL SIGNS: Temperature 97.8 degrees Fahrenheit, heart rate 70 per minute, respiratory rate 16 per minute, blood pressure 125/58 mmHg, oxygen saturation 91% on room air. HEAD: Atraumatic. NECK: Supple and without jugular venous distention (JVD) or thyroid enlargement. HEART SOUNDS: Regular. LUNGS: Clear to auscultation. ABDOMEN: Soft and nontender. Bowel sounds are normal. EXTREMITIES: Without any cyanosis or clubbing. NEUROLOGIC: She is awake, alert and oriented times three. SKIN: No rash or ulcers. LABORATORY DATA: Today's labs show WBC count 4.6, hemoglobin 9.5, hematocrit 28.7, platelets are reported 66. I feel that is probably an error in her labs, as her platelets have always been normal and no reason for her to have low platelets. Her chemistry showed sodium level 139, potassium 4.0, BUN is down to 39 and creatinine 3.27, which is improved slightly compared to yesterday, calcium level is slightly improved at 11.0. Total protein 5.4 and albumin 2.3. PROBLEMS: 1. Acute kidney injury superimposed on chronic kidney disease. Kidney function is improving and patient is currently off intravenous (IV) fluid. Patient's oral intake is adequate and we will continue to encourage her for oral intake. She is currently not taking any diuretic. 2. Hypercalcemia. Most likely related to intake of excessive amount of Tums for heartburn and in addition, she was also taking calcitriol. Now her calcium level is gradually improving. Her intake PTH level was 26.3, probably related to hypercalcemia. 3. Anemia and thrombocytopenia. Her anemia has been chronic and probably related to iron deficiency. She has been given intravenous iron. Thrombocytopenia is unexpected and would need to be rechecked.
[2021-04-01 13:32] LABS: HEMATOCRIT 29.3 % (36.0-47.0); HEMOGLOBIN 9.5 g/dl (12.0-15.5); MEAN CORPUSCULAR HEMOGLOBIN 29.1 pg (27.0-33.0); MEAN CORPUSCULAR HGB CONC 32.4 g/dl (32.0-36.5); MEAN CORPUSCULAR VOLUME 89.9 fl (80.0-96.0); RED BLOOD COUNT 3.26 10^6/uL (4.00-5.40); WHITE BLOOD COUNT 7.3 10^3/uL (4.0-10.0)
[2021-04-01 13:44] LABS: PLATELET COUNT, AUTOMATED 272 10^3/uL (150-450)
[2021-04-01 14:00] VITALS: BP 125/57
[2021-04-01 17:07] LABS: FREE KAPPA LIGHT CHAINS SERUM 63.8 mg/L (3.3-19.4); FREE LAMBDA LIGHT CHAINS SERUM 46.9 mg/L (5.7-26.3); KAPPA/LAMBDA RATIO SERUM 1.36 (0.26-1.65)
--- NOTE | 2021-04-01 17:12 | IPNPDOC ---
Date Seen The patient was seen on 04/01/21. Progress Note SUBJECTIVE: Calcium and CR continues to improve slowly, abnormal SPEP studies and was evaluated by med/onc. Denies chest pain, shortness of breath, nausea, vomiting. OBJECTIVE PHYSICAL EXAMINATION: VS: Please see below CONSTITUTIONAL: No acute distress, resting comfortably, AAO x 3 EYES: PERRLA, EOM intact, corrective lenses in place HENT, MOUTH: Normocephalic, atraumatic, moist mucous membranes NECK: SUPPLE, no JVD, no lymphadenopathy, no carotid bruit CV: Regular rate and rhythm, S1S2 normal, no murmurs/rubs/gallops RESPIRATORY: Clear to auscultation bilaterally, no rales/rhonchi/wheezes GI: Obese abdomen, BS positive in 4 quadrants, soft, nontender, nondistended, no rebound or guarding, no organomegaly : Deferred MUSCULOSKELETAL: Normal ROM. No cyanosis, clubbing, swelling, joint deformity, extremity edema nonpitting in all extremities INTEGUMENTARY: Intact, no rashes, no lesions, no erythema NEUROLOGIC: Cranial Nerves II-XII are intact, no focal deficits PSYCHIATRIC: Mood and affect are normal LABORATORY DATA: Please see below IMAGING: Echocardiogram 03/28/21: 1. Normal global left ventricular systolic function with mild concentric left ventricular hypertrophy. There are some features of grade 1 left ventricular diastolic dysfunction manifested by abnormal relaxation. EF 65-70% 2. Trace mitral regurgitation. 3. Ykjoa-br-gyeb tricuspid regurgitation with mild pulmonary hypertension. CT of the chest: 1. Some minor fibrotic changes medial basal segment right lower lobe with the lungs otherwise clear of infiltrate, nodule, effusion or mass. There is some minor cylindrical bronchiectasis. No pleural plaque, lung mass or other significant lung finding. 2. No mediastinal, hilar, axillary or supraclavicular adenopathy nor mass. 3. Heart grossly unremarkable. Aorta with calcifications but no aneurysm. 4. Moderate-sized hiatal hernia. Some degenerative changes in the spine. Prior cholecystectomy. Nothing acute. CT abdomen/pelvis: 1. Some mild cortical atrophy on the right compared to left kidney but no hydronephrosis, mass, cyst or renal stone disease. 2. Small hiatal hernia unchanged. Next fatty atrophy of the pancreatic head as before. 3. Small bowel loops and colon without acute finding there is no ventral or inguinal hernia nor pathologic sized adenopathy. 4. Solid organs in the upper abdomen intact. There is a prior cholecystectomy. Chest x-ray: No acute cardiopulmonary abnormality CT head: No acute intracranial abnormality ASSESSMENT: 75-year-old female with PMH of hypocalcemia, anemia, hiatal hernia, GERD, hyperlipidemia, chronic kidney disease stage III admitted to medicine service for further treatment of acute kidney injury on chronic kidney disease stage III, hypercalcemia. PLAN: Acute kidney injury on CKD Stage III possibly multifactorial to home medications, prerenal causes with dehydration, poor PO intake -Last creatinine on file 2.03 in 02/2021 -Cr 3.27 with oral hydration -UA neg -Daily labs, avoid nephrotoxic meds -Nephrology following Hypercalcemia, acute likely secondary to home medications, supplementation. r/o MM, MGUS -Calcium lower today at 11. 1, slowly improving -No history of hypercalcemia in the past, no malignancy known, imaging above neg -Taking many TUMS (calcium carbonate), home calcitriol, additional calcium supplement, vitamin D, drinking milk daily -PTH within normal limits, M spike with IgG kappa, serum free light chains pending -Stopped IVFs, completed tx with calcitonin (total of 6 doses) -We are also working her up further, as she had an abnormal serum protein electrophoresis (SPEP) with M spike. Dr. Shelton will f/u as o/p in clinic. -Nephrology following closely Monoclonal gammopathy -Abnormal SPEP -See above for plan HFpEF, not currently in exacerbation -Echo above, BNP elevated at 1591 -Remains on RA, denies chest pain, incr SOB -Avoiding diuretics -Not on BB -Monitor for s/s of fluid overload -2 gm sodium diet, I&O's closely followed, daily wt JOSE G -Daily CBC, no s/s of bleeding -Low iron studies -S/p Venofer Hypertension -BP able -Holding spironolactone, continue hydralazine Chronic nausea/vomiting/heartburn secondary to GERD, hiatal hernia -Improved with incr dose of PPI -States this is a long-standing issue and it has not changed much in frequency but does feel as though burning of her chest at times has worsened -Follow-up with surgery as o/p for treatment of hiatal hernia -Zofran when necessary, PPI BID Hyperlipidemia -Continue home medication Depression -Continue home medication Hypothyroidism -TSH within normal limits -Continue home medication History of hypokalemia -Holding potassium supplement for now with acute kidney injury severe -Follow-up labs as discussed above Questionable cardiac history, aside from CHF -On aspirin and statin medication but the patient does not know her cardiac history -Follows with Dr. Ratliff in [place], [place] -Continue home meds for now DVT prophylaxis -Heparin subcutaneous RESOLVED: Syncope likely vasovagal episodes DISPOSITION: Admitted as acute inpatient. Nephrology following, hem/onc consulted today . PT: cleared. VS, I&O, 24H, Fishbone Vital Signs/I&O Vital Signs Date Time Temp Pulse Resp B/P (MAP) Pulse Ox O2 Delivery O2 Flow Rate FiO2 04/01/21 15:52 126/95 04/01/21 14:00 97.4 60 18 98 Room Air I&O- Last 24 Hours up to 6 AM 04/01/21 06:00 Intake Total 2010 ml Output Total 2200 ml Balance -190 ml Laboratory Data 24H LABS Laboratory Tests 2 04/01/21 05:44: Nucleated Red Blood Cells % (auto) 0.0, Immature Platelet Fraction 5.3, Anion Gap 9, Glomerular Filtration Rate 14.7L, Calcium Level 11.0H, Total Bilirubin 0.2#, Aspartate Amino Transf (AST/SGOT) 22, Alanine Aminotransferase (ALT/SGPT) 17, Alkaline Phosphatase 37L, Total Protein 5.4L, Albumin 2.3L, Albumin/Globulin Ratio 0.7L 04/01/21 13:09: Nucleated Red Blood Cells % (auto) 0.0 CBC/BMP Laboratory Tests 04/01/21 05:44 04/01/21 13:09 Microbiology Microbiology 03/28/21 Blood Culture - Preliminary, Resulted No Growth after 72 hours. All specime... 03/28/21 Blood Culture - Preliminary, Resulted No Growth after 72 hours. All specime... Merlyn Callahan MD Apr 01, 2021 17:12
[2021-04-01] MEDS: traZODone 50 MG TAB PO SCH (20:25)
[2021-04-01] MEDS: PRAVASTATIN 20 MG TAB PO SCH (20:26)
[2021-04-01 22:00] VITALS: BP 147/59
[2021-04-02] MEDS: LEVOTHYROXINE 50MCG TABLET (0.05MG) PO SCH (05:44)
[2021-04-02 06:00] VITALS: BP 124/53
[2021-04-02 06:51] LABS: HEMATOCRIT 25.9 % (36.0-47.0); HEMOGLOBIN 8.5 g/dl (12.0-15.5); MEAN CORPUSCULAR HEMOGLOBIN 29.3 pg (27.0-33.0); MEAN CORPUSCULAR HGB CONC 32.8 g/dl (32.0-36.5); MEAN CORPUSCULAR VOLUME 89.3 fl (80.0-96.0); PLATELET COUNT, AUTOMATED 261 10^3/uL (150-450); WHITE BLOOD COUNT 6.6 10^3/uL (4.0-10.0)
[2021-04-02 07:14] LABS: ALBUMIN 2.1 GM/DL (3.2-5.2); BILIRUBIN,TOTAL 0.3 MG/DL (0.2-1.0); CALCIUM LEVEL 9.7 MG/DL (8.8-10.2); CREATININE FOR GFR 3.1 MG/DL (0.55-1.30); GLOMERULAR FILTRATION RATE 15.6 (>39); POTASSIUM SERUM 3.2 MEQ/L (3.5-5.1); TOTAL PROTEIN 5.2 GM/DL (6.4-8.2)
[2021-04-02] MEDS: ASPIRIN 81MG ENTERIC TABLET PO SCH ×2 (08:25→20:28)
[2021-04-02] MEDS: busPIRone 5 MG TAB PO SCH ×3 (08:25→20:41)
[2021-04-02] MEDS: oxyBUTYnin *DITROPAN XL* 5 MG TABCR PO SCH (08:25)
[2021-04-02] MEDS: OMEPRAZOLE 20 MG CAP PO SCH ×2 (08:25→20:28)
[2021-04-02] MEDS: POTASSIUM CHLORIDE 10MEQ SR TABLET PO SCH ×2 (08:26→20:28)
[2021-04-02] MEDS: **hydrALAZINE HCL** 25 MG TAB PO SCH ×3 (08:26→20:29)
[2021-04-02] MEDS: HEPARIN SOD (PORCINE) 5000UNITS/ML 1ML VIAL/SYRINGE SQ SCH ×2 (08:27→20:28)
[2021-04-02] MEDS: NYSTATIN 100,000 UNITS/GM TOPICAL PWD 15 GM TOP SCH ×2 (08:28→20:29)
--- NOTE | 2021-04-02 11:48 | IPN ---
NEPHROLOGY PROGRESS NOTE DATE: 04/02/2021 SUBJECTIVE: Ms Coronel is seen this morning on her bedside. She is sitting in the chair eating breakfast. She is feeling well and denies any nausea, vomiting, dyspnea or chest pain. She has no fever or chills. PHYSICAL EXAMINATION: VITAL SIGNS: Temperature 98.6 degrees Fahrenheit, heart rate 76 per minute, respiratory rate 16 per minute, blood pressure 128/66 mmHg, oxygen saturation 95% on room air. HEAD: Atraumatic. NECK: Supple and without jugular venous distention (JVD) or thyroid enlargement. HEART SOUNDS: Regular. LUNGS: Clear to auscultation. ABDOMEN: Soft and nontender. Bowel sounds are normal. EXTREMITIES: Without any cyanosis or clubbing. NEUROLOGIC: She is awake, alert and oriented times three. She has no focal deficit. LABORATORY DATA: Today's labs show WBC count 6.6, hemoglobin 8.5, hematocrit 25.9, platelets 261. Sodium 138, potassium 3.2, CO2 24, BUN 38, creatinine 3.1, glucose 91, calcium is down to 9.7. PROBLEMS: 1. Hypercalcemia. Her calcium level has improved significantly since admission. This is most likely related to an excessive amount of calcium intake while she was also taking vitamin D and calcitriol. Now, all her vitamin D supplements are off. She also had an abnormal serum protein electrophoresis. She will follow up with oncology as an outpatient. I do not feel that she has any compelling evidence for multiple myeloma at present. 2. Hypokalemia. Potassium level is slightly low, though unexpected. She is not on any diuretic. I will put her back on potassium chloride 10 mEq twice a day. At home, she takes potassium citrate and spironolactone. In the hospital, she has been off potassium supplement, which could be the cause of her hypokalemia. She is also not receiving her spironolactone. 3. Acute renal failure superimposed on chronic kidney disease. Kidney function is gradually improving. Her oral intake is adequate, so no need for intravenous fluids. 4. Iron deficiency anemia. Her anemia is still significant and she has received intravenous iron supplement. This can be followed and monitored as an outpatient. DISPOSITION: From a renal standpoint, patient can be ready for discharge in the next 24 hours. She should follow up in the office as an outpatient.
[2021-04-02 14:00] VITALS: BP 100/58
--- NOTE | 2021-04-02 14:29 | IPNPDOC ---
Date Seen The patient was seen on 04/02/21. Progress Note SUBJECTIVE: Calcium and CR improving more today, no events overnight. Denies chest pain, shortness of breath, nausea, vomiting. OBJECTIVE: PHYSICAL EXAMINATION: VS: Please see below CONSTITUTIONAL: No acute distress, resting comfortably, AAO x 3 EYES: PERRLA, EOM intact, corrective lenses in place HENT, MOUTH: Normocephalic, atraumatic, moist mucous membranes NECK: SUPPLE, no JVD, no lymphadenopathy, no carotid bruit CV: Regular rate and rhythm, S1S2 normal, no murmurs/rubs/gallops RESPIRATORY: Clear to auscultation bilaterally, no rales/rhonchi/wheezes GI: Obese abdomen, BS positive in 4 quadrants, soft, nontender, nondistended, no rebound or guarding, no organomegaly : Deferred MUSCULOSKELETAL: Normal ROM. No cyanosis, clubbing, swelling, joint deformity, extremity edema nonpitting in all extremities INTEGUMENTARY: Intact, no rashes, no lesions, no erythema NEUROLOGIC: Cranial Nerves II-XII are intact, no focal deficits PSYCHIATRIC: Mood and affect are normal LABORATORY DATA: Please see below IMAGING: Echocardiogram 03/28/21: 1. Normal global left ventricular systolic function with mild concentric left ventricular hypertrophy. There are some features of grade 1 left ventricular diastolic dysfunction manifested by abnormal relaxation. EF 65-70% 2. Trace mitral regurgitation. 3. Wsdmz-ok-yliy tricuspid regurgitation with mild pulmonary hypertension. CT of the chest: 1. Some minor fibrotic changes medial basal segment right lower lobe with the lungs otherwise clear of infiltrate, nodule, effusion or mass. There is some minor cylindrical bronchiectasis. No pleural plaque, lung mass or other significant lung finding. 2. No mediastinal, hilar, axillary or supraclavicular adenopathy nor mass. 3. Heart grossly unremarkable. Aorta with calcifications but no aneurysm. 4. Moderate-sized hiatal hernia. Some degenerative changes in the spine. Prior cholecystectomy. Nothing acute. CT abdomen/pelvis: 1. Some mild cortical atrophy on the right compared to left kidney but no hydronephrosis, mass, cyst or renal stone disease. 2. Small hiatal hernia unchanged. Next fatty atrophy of the pancreatic head as before. 3. Small bowel loops and colon without acute finding there is no ventral or inguinal hernia nor pathologic sized adenopathy. 4. Solid organs in the upper abdomen intact. There is a prior cholecystectomy. Chest x-ray: No acute cardiopulmonary abnormality CT head: No acute intracranial abnormality ASSESSMENT: 75-year-old female with PMH of hypocalcemia, anemia, hiatal hernia, GERD, hyperlipidemia, chronic kidney disease stage III admitted to medicine service for further treatment of acute kidney injury on chronic kidney disease stage III, hypercalcemia. PLAN: Acute kidney injury on CKD Stage III possibly multifactorial to home medications, prerenal causes with dehydration, poor PO intake -Last creatinine on file 2.03 in 02/2021 -Cr 3.10 with oral hydration -UA neg -Daily labs, avoid nephrotoxic meds -Nephrology following and believes can be d/[facility] tomorrow in continues to downtrend with AM labs, to f/u in clinic. Hypercalcemia, acute likely secondary to home medications, supplementation. r/o MM, MGUS-improved -Calcium now wnl -No history of hypercalcemia in the past, no malignancy known, imaging above neg -Taking many TUMS (calcium carbonate), home calcitriol, additional calcium supplement, vitamin D, drinking milk daily at home prior to admission -PTH within normal limits, M spike with IgG kappa, serum free light chains pending -Stopped IVFs, completed tx with calcitonin (total of 6 doses) -Abnormal serum protein electrophoresis (SPEP) with M spike. Dr. Shelton will f/u as o/p in clinic. -Nephrology following closely Monoclonal gammopathy -Abnormal SPEP -F/u in clinic as o/p, Dr. Shelton -See above for plan Hypokalemia -K 3.2 -KCL PO BID started today by nephrology -Follow-up labs as discussed above HFpEF, not currently in exacerbation -Echo above, BNP elevated at 1591 -Remains on RA, denies chest pain, incr SOB -Avoiding diuretics -Not on BB -Monitor for s/s of fluid overload -2 gm sodium diet, I&O's closely followed, daily wt JOSE G -Daily CBC, no s/s of bleeding -Low iron studies -S/p Venofer Hypertension -BP able -Holding spironolactone, continue hydralazine Chronic nausea/vomiting/heartburn secondary to GERD, hiatal hernia -Improved with incr dose of PPI -States this is a long-standing issue and it has not changed much in frequency but does feel as though burning of her chest at times has worsened -Follow-up with surgery as o/p for treatment of hiatal hernia -Zofran when necessary, PPI BID Hyperlipidemia -Continue home medication Depression -Continue home medication Hypothyroidism -TSH within normal limits -Continue home medication Questionable cardiac history, aside from CHF -On aspirin and statin medication but the patient does not know her cardiac history -Follows with Dr. Ratliff in [place], [place] -Continue home meds for now DVT prophylaxis -Heparin subcutaneous RESOLVED: Syncope likely vasovagal episodes DISPOSITION: Admitted as acute inpatient. Can likely d/c 04/03/21 if continues to improve with Creatinine. Needs f/u scheduled with nephrology, med/onc Dr. Shelton prior to d/c. PT: cleared. VS, I&O, 24H, [place] Vital Signs/I&O Vital Signs Date Time Temp Pulse Resp B/P (MAP) Pulse Ox O2 Delivery O2 Flow Rate FiO2 04/02/21 08:26 128/66 04/02/21 06:00 98.6 76 16 95 Room Air I&O- Last 24 Hours up to 6 AM 04/02/21 05:59 Intake Total 1650 ml Output Total 1850 ml Balance -200 ml Laboratory Data 24H LABS Laboratory Tests 2 04/02/21 06:33: Anion Gap 6L, Glomerular Filtration Rate 15.6L, Calcium Level 9.7, Total Bilirubin 0.3, Aspartate Amino Transf (AST/SGOT) 11, Alanine Aminotransferase (ALT/SGPT) 15, Alkaline Phosphatase 40L, Total Protein 5.2L, Albumin 2.1L, Albumin/Globulin Ratio 0.7L 04/02/21 06:34: Nucleated Red Blood Cells % (auto) 0.0 CBC/BMP Laboratory Tests 04/02/21 06:33 04/02/21 06:34 Microbiology Microbiology 03/28/21 Blood Culture - Final, Complete NO GROWTH AFTER 5 DAYS 03/28/21 Blood Culture - Final, Complete NO GROWTH AFTER 5 DAYS Merlyn Callahan MD Apr 02, 2021 14:29
[2021-04-02] MEDS: PRAVASTATIN 20 MG TAB PO SCH (20:28)
[2021-04-02] MEDS: traZODone 50 MG TAB PO SCH (20:28)
[2021-04-02 22:00] VITALS: BP 124/59
[2021-04-03 06:00] VITALS: BP 114/55
[2021-04-03] MEDS: LEVOTHYROXINE 50MCG TABLET (0.05MG) PO SCH (06:04)
[2021-04-03 06:14] LABS: HEMATOCRIT 26.9 % (36.0-47.0); HEMOGLOBIN 9.1 g/dl (12.0-15.5); MEAN CORPUSCULAR HEMOGLOBIN 30.3 pg (27.0-33.0); MEAN CORPUSCULAR HGB CONC 33.8 g/dl (32.0-36.5); MEAN CORPUSCULAR VOLUME 89.7 fl (80.0-96.0); PLATELET COUNT, AUTOMATED 286 10^3/uL (150-450); WHITE BLOOD COUNT 7.1 10^3/uL (4.0-10.0)
[2021-04-03 06:36] LABS: ALBUMIN 2.4 GM/DL (3.2-5.2); BILIRUBIN,TOTAL 0.2 MG/DL (0.2-1.0); CALCIUM LEVEL 9.7 MG/DL (8.8-10.2); CREATININE FOR GFR 3.25 MG/DL (0.55-1.30); GLOMERULAR FILTRATION RATE 14.8 (>39); POTASSIUM SERUM 3.8 MEQ/L (3.5-5.1); TOTAL PROTEIN 5.2 GM/DL (6.4-8.2)
[2021-04-03] MEDS ORDERED: OMEP-218 PO (08:12)
[2021-04-03] MEDS: OMEPRAZOLE 20 MG CAP PO SCH (09:39)
[2021-04-03] MEDS: ASPIRIN 81MG ENTERIC TABLET PO SCH (09:39)
[2021-04-03 09:40] VITALS: BP 134/60
[2021-04-03] MEDS: POTASSIUM CHLORIDE 10MEQ SR TABLET PO SCH (09:40)
[2021-04-03] MEDS: **hydrALAZINE HCL** 25 MG TAB PO SCH (09:40)
[2021-04-03] MEDS: busPIRone 5 MG TAB PO SCH (09:40)
[2021-04-03] MEDS: oxyBUTYnin *DITROPAN XL* 5 MG TABCR PO SCH (09:40)
[2021-04-03 09:41] VITALS: BP 134/60
[2021-04-03] MEDS: NYSTATIN 100,000 UNITS/GM TOPICAL PWD 15 GM TOP SCH (09:41)
[2021-04-03] MEDS: HEPARIN SOD (PORCINE) 5000UNITS/ML 1ML VIAL/SYRINGE SQ SCH (09:41)
--- NOTE | 2021-04-03 12:48 | IPN ---
PROGRESS NOTE DATE: 04/03/2021 SUBJECTIVE: Ms. Coronel is seen this morning on her bedside. She is feeling much better and sitting up in the chair eating breakfast. She denies any nausea, vomiting, dyspnea or chest pain. She has no fever or chills. OBJECTIVE: VITAL SIGNS: Temperature is 98.9 degrees Fahrenheit, heart rate is 65 per minute and respiratory rate is 17 per minute. Blood pressure is 134/60 mmHg and oxygen saturation 96% on room air. HEAD: Atraumatic. NECK: Supple without JVD or thyroid enlargement. HEART: Heart sounds are regular. LUNGS: Diminished breath sounds but no wheezing or rales. ABDOMEN: Soft and nontender. Bowel sounds are normal. EXTREMITIES: Without any cyanosis or clubbing. NEUROLOGIC: She is awake, alert, and at her baseline mentation. LABORATORY DATA: Today's labs showed a WBC count of 7.1, hemoglobin is 9.1 and hematocrit 26.9. Platelets are 286,000. Sodium is 141, potassium is 3.8, BUN is 43 and creatinine is 3.25. Glucose is 101 and calcium is 9.7. PROBLEMS: 1. Acute kidney injury superimposed on chronic kidney disease, no significant improvement in kidney function over the last 48 hours. She has no uremic symptoms. At this point, I will continue to monitor her kidney function closely. There is no emergent need for dialysis. 2. Hypokalemia, her potassium level corrected with potassium supplement. At home, she takes potassium citrate because of a prior history of kidney stones and she will resume the same when she gets home. 3. Anemia. Her anemia is stable and does not need any urgent intervention. 4. Hypercalcemia. The calcemia level has improved and remains stable at 9.7. Currently, she is not taking Calcitriol. I have advised her not to resume Calcitriol until she is seen in the office. 5. Disposition: From a renal standpoint, patient can be discharged to home today and follow-up in the office. 6. Abnormal serum protein electrophoresis. Patient is going to see Oncology as an outpatient.
--- NOTE | 2021-04-03 20:11 | DS.PDOC ---
Discharge Summary General Date of Admission Mar 28, 2021 at 14:19 Date of Discharge 04/03/21 Attending Physician: Merlyn Callahan MD Discharge Summary PROCEDURES PERFORMED DURING STAY: None ADMITTING DIAGNOSES: Syncope, rule out cardiac versus neurological causes Acute kidney injury on CKD Stage III possibly multifactorial to home medications, prerenal causes with vomiting, poor PO intake Hypercalcemia, acute likely secondary to home medications, supplementation Chronic nausea/vomiting secondary to GERD and hiatal hernia Hyperlipidemia Depression Hypothyroidism History of hypokalemia Questionable cardiac history, type unknown DISCHARGE DIAGNOSES: Syncope likely vasovagal episodes Acute kidney injury on CKD Stage III possibly multifactorial to home medications, prerenal causes with dehydration, poor PO intake Hypercalcemia, acute likely secondary to home medications, supplementation. r/o MM, MGUS Monoclonal gammopathy Hypokalemia HFpEF JOSE G Hypertension Chronic nausea/vomiting/heartburn secondary to GERD, hiatal hernia Hyperlipidemia Depression Hypothyroidism Questionable cardiac history, aside from CHF COMPLICATIONS/CHIEF COMPLAINT: Alonso, Hypercalcemia. HISTORY OF PRESENT ILLNESS: The patient is a 75-year-old female with PMH of hypocalcemia, anemia, hiatal hernia, GERD, hyperlipidemia, chronic kidney disease stage III who presented to [facility] emergency room with the chief complaint of increased nausea and vomiting with 3 syncopal episodes this week. The patient states that she has a history of syncope in the past and was told this was due to low blood levels. She states that she had severe nausea with 2 episodes of nonbloody vomitus today throwing up undigested food. She states her hiatal hernia has worsened and this is likely what caused it. She stated she was sitting down when suddenly she felt lightheaded and began to have diaphoresis. At this time she fell and passed out for an unknown period of time but believed to be around 10 minutes. She denies hitting her head during this episode. She denies any reported loss of bowel or bladder, tongue biting or history of seizures. She states to have had several episodes like this during the week and she is not really symptomatic prior to them occurring. Other associated symptoms include generalized weakness. She denied any pain upper chest or anywhere else in the body, fevers, shortness of breath, chills. HOSPITAL COURSE: In the emergency room her vital signs were: Temperature 96.1, heart rate 65, respiratory rate 16, blood pressure systolic 391935, 97% on room air. She was found to be hypercalcemic with calcium of 15.9. She was on several home medications including calcium supplement, vitamin D and calcitriol which can contribute to this. She also states to drink glass of milk a day. Creatinine was elevated at 3.79, last on file from 03/15/2021 was 2.03. Potassium was normal. Chest x-ray negative, head CT was pending. The patient was admitted to medicine service for further treatment of acute kidney injury on chronic kidney disease stage III, syncope, acute hypercalcemia. While inpatient the following issues were addressed or monitored: Acute kidney injury on CKD Stage III possibly multifactorial to home medications, prerenal causes with dehydration, poor PO intake -Last creatinine on file 2.03 in 02/2021 -Cr 3.25 with oral hydration -UA neg -Avoid nephrotoxic meds -Nephrology was consulted and will f/u in clinic after discharge Hypercalcemia, acute likely secondary to home medications, supplementation. r/o MM, MGUS -Calcium now wnl -No history of hypercalcemia in the past, no malignancy known, imaging above neg -Taking many TUMS (calcium carbonate), home calcitriol, additional calcium supplement, vitamin D, drinking milk daily at home prior to admission -PTH within normal limits, M spike with IgG kappa, serum free light chains pending -Stopped IVFs, completed tx with calcitonin (total of 6 doses) -Abnormal serum protein electrophoresis (SPEP) with M spike. Dr. Shelton will f/u as o/p in clinic. -Nephrology following closely -Resume all home calcium supplements except calcitriol per nephrology. Monoclonal gammopathy -Abnormal SPEP, chains pending -F/u in clinic as o/p, Dr. Shelton -See above for plan Hypokalemia, chronic -C/w home supplement HFpEF, not currently in exacerbation -Echo above, BNP elevated at 1591 -Remains on RA, denies chest pain, incr SOB -Avoiding diuretics -Not on BB -2 gm sodium diet JOSE G -Daily CBC, no s/s of bleeding -Low iron studies -S/p Venofer Hypertension -BP able -Holding spironolactone, continue hydralazine Chronic nausea/vomiting/heartburn secondary to GERD, hiatal hernia -Improved with incr dose of PPI -States this is a long-standing issue and it has not changed much in frequency but does feel as though burning of her chest at times has worsened -Follow-up with surgery as o/p for treatment of hiatal hernia -PPI BID Hyperlipidemia -Continue home medication Depression -Continue home medication Hypothyroidism -TSH within normal limits -Continue home medication Questionable cardiac history, aside from CHF -On aspirin and statin medication but the patient does not know her cardiac history -Follows with Dr. Ratliff in [place], [place] -Continue home meds for now DISCHARGE MEDICATIONS: Please see below. ALLERGIES: Please see below. PHYSICAL EXAMINATION: VS: Please see below CONSTITUTIONAL: No acute distress, resting comfortably, AAO x 3 EYES: PERRLA, EOM intact, corrective lenses in place HENT, MOUTH: Normocephalic, atraumatic, moist mucous membranes NECK: SUPPLE, no JVD, no lymphadenopathy, no carotid bruit CV: Regular rate and rhythm, S1S2 normal, no murmurs/rubs/gallops RESPIRATORY: Clear to auscultation bilaterally, no rales/rhonchi/wheezes GI: Obese abdomen, BS positive in 4 quadrants, soft, nontender, nondistended, no rebound or guarding, no organomegaly : Deferred MUSCULOSKELETAL: Normal ROM. No cyanosis, clubbing, swelling, joint deformity, extremity edema nonpitting in all extremities INTEGUMENTARY: Intact, no rashes, no lesions, no erythema NEUROLOGIC: Cranial Nerves II-XII are intact, no focal deficits PSYCHIATRIC: Mood and affect are normal LABORATORY DATA: Please see below IMAGING: Echocardiogram 03/28/21: 1. Normal global left ventricular systolic function with mild concentric left ventricular hypertrophy. There are some features of grade 1 left ventricular diastolic dysfunction manifested by abnormal relaxation. EF 65-70% 2. Trace mitral regurgitation. 3. [id number] tricuspid regurgitation with mild pulmonary hypertension. CT of the chest: 1. Some minor fibrotic changes medial basal segment right lower lobe with the lungs otherwise clear of infiltrate, nodule, effusion or mass. There is some minor cylindrical bronchiectasis. No pleural plaque, lung mass or other significant lung finding. 2. No mediastinal, hilar, axillary or supraclavicular adenopathy nor mass. 3. Heart grossly unremarkable. Aorta with calcifications but no aneurysm. 4. Moderate-sized hiatal hernia. Some degenerative changes in the spine. Prior cholecystectomy. Nothing acute. CT abdomen/pelvis: 1. Some mild cortical atrophy on the right compared to left kidney but no hydronephrosis, mass, cyst or renal stone disease. 2. Small hiatal hernia unchanged. Next fatty atrophy of the pancreatic head as before. 3. Small bowel loops and colon without acute finding there is no ventral or inguinal hernia nor pathologic sized adenopathy. 4. Solid organs in the upper abdomen intact. There is a prior cholecystectomy. Chest x-ray: No acute cardiopulmonary abnormality CT head: No acute intracranial abnormality PROGNOSIS: Good ACTIVITY: As tolerated with RW DIET: 2 gm sodium DISPOSITION: Home, Self-Care. DISCHARGE INSTRUCTIONS: 1. Appointments will be made for you for nephrology, hematology and your PCP. Please follow up with all and bring discharge paperwork with you. 2. If you should have increased nausea, vomiting, lightheadedness, dizziness, increased weakness please notify a medical professional. ITEMS TO FOLLOWUP ON ON OUTPATIENT: Follow up with medical oncology, Dr. Shelton to discuss abnormal SPEP DISCHARGE CONDITION:Stable TIME SPENT ON DISCHARGE: 35 minutes. Vital Signs/I&Os Vital Signs Date Time Temp Pulse Resp B/P (MAP) Pulse Ox O2 Delivery O2 Flow Rate FiO2 04/03/21 09:41 65 134/60 (84) 04/03/21 06:00 98.9 17 94 Room Air I&O- Last 24 Hours up to 6 AM 04/03/21 06:00 Intake Total 2140 ml Output Total 2550 ml Balance -410 ml Laboratory Data Labs 24H Laboratory Tests 2 04/03/21 05:54: Nucleated Red Blood Cells % (auto) 0.0, Anion Gap 9, Glomerular Filtration Rate 14.8L, Calcium Level 9.7, Total Bilirubin 0.2, Aspartate Amino Transf (AST/SGOT) 12, Alanine Aminotransferase (ALT/SGPT) 17, Alkaline Phosphatase 53, Total Protein 5.2L, Albumin 2.4L, Albumin/Globulin Ratio 0.9L CBC/BMP Laboratory Tests 04/03/21 05:54 Microbiology Microbiology 03/28/21 Blood Culture - Final, Complete NO GROWTH AFTER 5 DAYS 03/28/21 Blood Culture - Final, Complete NO GROWTH AFTER 5 DAYS Discharge Medications Scheduled Aspirin (Ecotrin) 81 Mg Tablet., 81 MG PO BID, (Reported) Biotin (Biotin) 5,000 Mcg Tab.rapdis, 5,000 MCG PO DAILY, (Reported) Buspirone HCl (Buspirone HCl) 5 Mg Tablet, 5 MG PO TID, (Reported) Conjugated Estrogens (Premarin) 0.625 Mg Tablet, 0.625 MG PO DAILY, (Reported) Diphenhydramine HCl (Benadryl) 25 Mg Capsule, 25 MG PO QHS, (Reported) Glucosamine Sulfate Dipot Chlr (Glucosamine) 1,000 Mg Tablet, 1,000 MG PO DAILY, (Reported) Hydralazine HCl (Hydralazine HCl) 25 Mg Tablet, 25 MG PO TID, (Reported) Levothyroxine Sodium (Levothyroxine Sodium) 50 Mcg Tablet, 50 MCG PO DAILY, (Reported) Omeprazole (Omeprazole) 20 Mg Capsule.dr, 40 MG PO BID Oxybutynin Chloride (Oxybutynin Chloride ER) 5 Mg Tab.er.24, 5 MG PO DAILY, (Reported) Potassium Chloride (Potassium Chloride) 10 Meq Capsule.er, 10 MEQ PO DAILY, (Reported) Pravastatin Sodium (Pravastatin Sodium) 40 Mg Tablet, 40 MG PO QHS, (Reported) Trazodone HCl (Trazodone HCl) 50 Mg Tablet, 50 MG PO QHS, (Reported) Allergies Coded Allergies: banana (Verified Allergy, Unknown, 05/23/19) latex (Verified Allergy, Unknown, 05/23/19) Merlyn Callahan MD Apr 03, 2021 20:11
== END 2021-04-03 15:45 | disposition home health service (06) | DRG 641 ==
LOC: M ED 11:03 → EDBD 11:03 → M ED INP 14:19 → ENRESERV 15:45 → M MSPAV 18:45
PROVIDERS: ADMIT Internal Medicine; ATTEND Internal Medicine
DX: E83.52 Hypercalcemia (principal); N25.81 Secondary hyperparathyroidism of renal origin; N17.9 Acute kidney failure, unspecified; I50.32 Chronic diastolic (congestive) heart failure; I13.0 Hypertensive heart and chronic kidney disease with heart failure and stage 1 through stage 4 chronic kidney disease, or unspecified chronic kidney disease; D50.9 Iron deficiency anemia, unspecified; K44.9 Diaphragmatic hernia without obstruction or gangrene; K21.9 Gastro-esophageal reflux disease without esophagitis; E78.5 Hyperlipidemia, unspecified; N18.32 Chronic kidney disease, stage 3b; R55 Syncope and collapse; D47.2 Monoclonal gammopathy; R11.2 Nausea with vomiting, unspecified; E03.9 Hypothyroidism, unspecified; T45.2X5A Adverse effect of vitamins, initial encounter; E87.6 Hypokalemia; F32.A Depression, unspecified; Z90.49 Acquired absence of other specified parts of digestive tract; Z20.822 Contact with and (suspected) exposure to COVID-19; Z79.82 Long term (current) use of aspirin; Z79.899 Other long term (current) drug therapy; Z91.018 Allergy to other foods; Z91.040 Latex allergy status

== ENCOUNTER → 2021-04-14 | Outpatient (REF) | payer MEDICARE, BC ==
[~2021-04-14] MED LIST changes: +BUSP5TA PO; +ECOT81TA5 PO; +ESTR625TA PO; +HYDR-3910 PO; +LEVO50TA5 PO; +ROCA0.25 PO; +SPIR-10 PO; +VITA-168 PO
== END ==
LOC: M LAB REF 13:20
PROVIDERS: ATTEND Internal Medicine Nephrology
DX: N18.4 Chronic kidney disease, stage 4 (severe) (principal)

== ENCOUNTER → 2021-05-17 | Outpatient (REF) | payer MEDICARE, BC ==
[2021-05-17 18:19] LABS: MAGNESIUM LEVEL 1.9 MG/DL (1.8-2.4); PERCENT SATURATION 17.9 % (13.2-45.0)
== END ==
LOC: M LAB REF 17:00
PROVIDERS: ATTEND Internal Medicine Nephrology
DX: D50.9 Iron deficiency anemia, unspecified (principal); N18.4 Chronic kidney disease, stage 4 (severe); E83.42 Hypomagnesemia

== ENCOUNTER → 2021-06-26 | Outpatient (CLI) | payer MEDICARE, BC ==
[~2021-06-26] MED LIST changes: +OMEP-173 PO; -OMEP-218 PO
== END ==
LOC: M LAB 14:46
PROVIDERS: ATTEND Family Medicine
DX: E03.9 Hypothyroidism, unspecified (principal); N18.4 Chronic kidney disease, stage 4 (severe); E78.2 Mixed hyperlipidemia

== ENCOUNTER → 2021-09-27 | Outpatient (CLI) | payer MEDICARE, BC | LOC: M WHC 14:48 | PROVIDERS: ATTEND Family Medicine | DX: Z12.31 Encounter for screening mammogram for malignant neoplasm of breast (principal); Z78.0 Asymptomatic menopausal state; Z80.0 Family history of malignant neoplasm of digestive organs; Z80.49 Family history of malignant neoplasm of other genital organs ==

== ENCOUNTER → 2021-10-24 | Outpatient (CLI) | payer MEDICARE, BC ==
[2021-10-24 14:12] LABS: BASO % 0.6 % (0.0-1.0); EOS # 0.2 10^3/uL (0.0-0.5); EOS % 2.5 % (0.0-3.0); HEMATOCRIT 34.5 % (36.0-47.0); HEMOGLOBIN 10.8 g/dl (12.0-15.5); LYMPH # 1.5 10^3/uL (1.5-5.0); LYMPH % 23.1 % (24.0-44.0); MEAN CORPUSCULAR HEMOGLOBIN 30.2 pg (27.0-33.0); MEAN CORPUSCULAR HGB CONC 31.3 g/dl (32.0-36.5); MEAN CORPUSCULAR VOLUME 96.4 fl (80.0-96.0); MONO # 0.8 10^3/uL (0.0-0.8); NEUTROPHILS # 3.9 10^3/uL (1.5-8.5); NEUTROPHILS % 60.3 % (36.0-66.0); PLATELET COUNT, AUTOMATED 289 10^3/uL (150-450); RED BLOOD COUNT 3.58 10^6/uL (4.00-5.40); WHITE BLOOD COUNT 6.5 10^3/uL (4.0-10.0)
[2021-10-24 14:47] LABS: ALBUMIN 3.2 GM/DL (3.2-5.2); BILIRUBIN,TOTAL 0.2 MG/DL (0.2-1.0); CALCIUM LEVEL 9.9 MG/DL (8.8-10.2); CHOLESTEROL RISK RATIO 2.859 (<5); CREATININE FOR GFR 1.91 MG/DL (0.55-1.30); FREE T4 1.23 NG/DL (0.76-1.46); GLOMERULAR FILTRATION RATE 27.3 (>39); POTASSIUM SERUM 5.2 MEQ/L (3.5-5.1); THYROID STIMULATING HORMONE 2.12 uIU/ML (0.358-3.740); TOTAL PROTEIN 6.3 GM/DL (6.4-8.2); URIC ACID 5.9 MG/DL (2.6-6.0)
== END ==
LOC: M PLALAB 10:58
PROVIDERS: ATTEND Family Medicine
DX: N18.4 Chronic kidney disease, stage 4 (severe) (principal); E79.0 Hyperuricemia without signs of inflammatory arthritis and tophaceous disease; D63.1 Anemia in chronic kidney disease; E78.2 Mixed hyperlipidemia; E03.9 Hypothyroidism, unspecified

== ENCOUNTER → 2022-02-02 | Outpatient (CLI) | payer MEDICARE, BC ==
[2022-02-02 10:50] LABS: BASO # 0.1 10^3/uL (0.0-0.2); BASO % 0.8 % (0.0-1.0); EOS # 0.2 10^3/uL (0.0-0.5); EOS % 3.1 % (0.0-3.0); HEMATOCRIT 34.9 % (36.0-47.0); HEMOGLOBIN 10.9 g/dl (12.0-15.5); LYMPH # 1.2 10^3/uL (1.5-5.0); LYMPH % 19.5 % (24.0-44.0); MEAN CORPUSCULAR HEMOGLOBIN 29.3 pg (27.0-33.0); MEAN CORPUSCULAR HGB CONC 31.2 g/dl (32.0-36.5); MEAN CORPUSCULAR VOLUME 93.8 fl (80.0-96.0); MONO # 0.6 10^3/uL (0.0-0.8); MONO % 8.9 % (2.0-8.0); NEUTROPHILS # 4.2 10^3/uL (1.5-8.5); NEUTROPHILS % 67.2 % (36.0-66.0); PLATELET COUNT, AUTOMATED 323 10^3/uL (150-450); RED BLOOD COUNT 3.72 10^6/uL (4.00-5.40); WHITE BLOOD COUNT 6.2 10^3/uL (4.0-10.0)
[2022-02-02 12:18] LABS: ALBUMIN 3.1 GM/DL (3.2-5.2); BILIRUBIN,TOTAL 0.2 MG/DL (0.2-1.0); CHOLESTEROL RISK RATIO 3.031 (<5); CREATININE FOR GFR 1.83 MG/DL (0.55-1.30); FREE T4 1.09 NG/DL (0.76-1.46); GLOMERULAR FILTRATION RATE 28.6 (>39); POTASSIUM SERUM 4.4 MEQ/L (3.5-5.1); THYROID STIMULATING HORMONE 3.01 uIU/ML (0.358-3.740); TOTAL PROTEIN 6.5 GM/DL (6.4-8.2); URIC ACID 6.3 MG/DL (2.6-6.0)
== END ==
LOC: M LAB 09:51
PROVIDERS: ATTEND Family Medicine
DX: N18.4 Chronic kidney disease, stage 4 (severe) (principal); E03.9 Hypothyroidism, unspecified; E79.0 Hyperuricemia without signs of inflammatory arthritis and tophaceous disease; I12.9 Hypertensive chronic kidney disease with stage 1 through stage 4 chronic kidney disease, or unspecified chronic kidney disease

== ENCOUNTER 2022-05-10 13:58 | Emergency (ER) | payer MEDICARE, BC ==
[~2022-05-10] VITALS: Ht 167.6 cm; Wt 95.0 kg
[~2022-05-10 13:58] MED LIST changes: -POTA10CA32 PO; +POTA10CA33 PO
[2022-05-10 15:53] LABS: ETHYL ALCOHOL (ETHANOL) 0.003 % (0.000-0.010)
[2022-05-10 15:55] LABS: ACETAMINOPHEN LEVEL < 2.0 UG/ML (10.0-20.0); ALBUMIN 3.1 G/DL (3.2-5.2); ALKALINE PHOSPHATASE 52 U/L (46-116); ALT/SGPT 15 U/L (7.0-40); AST/SGOT 20 U/L (<34); BILIRUBIN,DIRECT < 0.1 MG/DL (<0.4); BILIRUBIN,TOTAL 0.2 MG/DL (0.3-1.2); BLOOD UREA NITROGEN 30 MG/DL (9-23); CALCIUM LEVEL 9.5 MG/DL (8.3-10.6); CARBON DIOXIDE LEVEL 19 MMOL/L (20-31); CHLORIDE LEVEL 110 MMOL/L (98-107); GLOMERULAR FILTRATION RATE 33.4 (>39); GLUCOSE, FASTING 108 MG/DL (74-106); POTASSIUM SERUM 4.4 MMOL/L (3.5-5.1); SALICYLATE LEVEL < 3.0 MG/DL (<30); SODIUM LEVEL 141 MMOL/L (136-145); TOTAL PROTEIN 6.6 G/DL (5.7-8.2)
[2022-05-10 15:57] LABS: THYROID STIMULATING HORMONE 2.313 uIU/ML (0.55-4.78)
[2022-05-10 16:29] LABS: HEMATOCRIT 33.7 % (36.0-47.0); HEMOGLOBIN 10.8 g/dl (12.0-15.5); MEAN CORPUSCULAR HEMOGLOBIN 28.6 pg (27.0-33.0); MEAN CORPUSCULAR VOLUME 89.4 fl (80.0-96.0); PLATELET COUNT, AUTOMATED 337 10^3/uL (150-450); RED BLOOD COUNT 3.77 10^6/uL (4.00-5.40); WHITE BLOOD COUNT 12.5 10^3/uL (4.0-10.0)
[2022-05-10] MEDS ORDERED: **hydrALAZINE HCL** 25 MG TAB PO ONE (17:25)
[2022-05-10 17:30] VITALS: BP 182/78
[2022-05-10 17:52] VITALS: BP 165/72
== END 2022-05-10 18:11 | disposition home or self-care (01) ==
LOC: M ED 13:58
DX: Z04.6 Encounter for general psychiatric examination, requested by authority (principal); E83.51 Hypocalcemia; D64.9 Anemia, unspecified; K21.9 Gastro-esophageal reflux disease without esophagitis; N18.9 Chronic kidney disease, unspecified; Z79.82 Long term (current) use of aspirin; Z79.890 Hormone replacement therapy; Z79.899 Other long term (current) drug therapy; Z91.018 Allergy to other foods; Z91.040 Latex allergy status

== ENCOUNTER → 2022-09-27 | Outpatient (CLI) | payer MEDICARE, BC ==
[2022-09-27 12:21] LABS: BASO # 0.1 10^3/uL (0.0-0.2); BASO % 0.9 % (0.0-1.0); EOS # 0.3 10^3/uL (0.0-0.5); EOS % 3.4 % (0.0-3.0); HEMATOCRIT 34.2 % (36.0-47.0); HEMOGLOBIN 10.6 g/dl (12.0-15.5); LYMPH % 26.5 % (24.0-44.0); MEAN CORPUSCULAR HEMOGLOBIN 27.6 pg (27.0-33.0); MEAN CORPUSCULAR VOLUME 89.1 fl (80.0-96.0); MONO # 0.8 10^3/uL (0.0-0.8); MONO % 10.2 % (2.0-8.0); NEUTROPHILS # 4.5 10^3/uL (1.5-8.5); NEUTROPHILS % 58.5 % (36.0-66.0); PLATELET COUNT, AUTOMATED 408 10^3/uL (150-450); RED BLOOD COUNT 3.84 10^6/uL (4.00-5.40); WHITE BLOOD COUNT 7.7 10^3/uL (4.0-10.0)
[2022-09-27 12:44] LABS: ALBUMIN 3.4 G/DL (3.2-5.2); BILIRUBIN,TOTAL 0.2 MG/DL (0.3-1.2); CALCIUM LEVEL 9.3 MG/DL (8.3-10.6); CHOLESTEROL RISK RATIO 2.84 (<5); GLOMERULAR FILTRATION RATE 25.8 (>39); HDL CHOLESTEROL 59.4 MG/DL (>40); NON-HDL-C 109.6 MG/DL; POTASSIUM SERUM 4.3 MMOL/L (3.5-5.1); TOTAL PROTEIN 6.2 G/DL (5.7-8.2)
[2022-09-27 12:47] LABS: FREE T4 1.2 NG/DL (0.89-1.76); THYROID STIMULATING HORMONE 3.425 uIU/ML (0.55-4.78)
== END ==
LOC: M LAB 11:39
PROVIDERS: ATTEND Family Medicine
DX: E03.9 Hypothyroidism, unspecified (principal); E78.2 Mixed hyperlipidemia; I12.9 Hypertensive chronic kidney disease with stage 1 through stage 4 chronic kidney disease, or unspecified chronic kidney disease; N18.9 Chronic kidney disease, unspecified

== ENCOUNTER → 2022-11-20 | Outpatient (CLI) | payer MEDICARE, BC ==
[~2022-11-20] MED LIST changes: -POTA10CA33 PO; +POTA10CA60 PO
== END ==
LOC: M WHC 12:23
PROVIDERS: ATTEND Nurse Practitioner Adult Health
DX: Z12.31 Encounter for screening mammogram for malignant neoplasm of breast (principal)

== ENCOUNTER → 2023-11-04 | Outpatient (CLI) | payer MEDICARE, BC ==
[~2023-11-04] MED LIST changes: -HYDR-3910 PO; +HYDR25TA87 PO; -OXYB5TAB10 PO; +OXYB5TAB14 PO; -POTA10CA60 PO; +POTA10CA70 PO
[2023-11-04 10:03] LABS: BASO # 0.1 10^3/uL (0.0-0.2); BASO % 0.7 % (0.0-1.0); EOS # 0.2 10^3/uL (0.0-0.5); EOS % 2.8 % (0.0-3.0); HEMATOCRIT 33.2 % (36.0-47.0); HEMOGLOBIN 10.5 g/dl (12.0-15.5); LYMPH # 1.3 10^3/uL (1.5-5.0); LYMPH % 19.6 % (24.0-44.0); MEAN CORPUSCULAR HGB CONC 31.6 g/dl (32.0-36.5); MEAN CORPUSCULAR VOLUME 82.2 fl (80.0-96.0); MONO # 0.7 10^3/uL (0.0-0.8); MONO % 10.6 % (2.0-8.0); NEUTROPHILS # 4.4 10^3/uL (1.5-8.5); PLATELET COUNT, AUTOMATED 319 10^3/uL (150-450); RED BLOOD COUNT 4.04 10^6/uL (4.00-5.40); WHITE BLOOD COUNT 6.7 10^3/uL (4.0-10.0)
[2023-11-04 10:27] LABS: URIC ACID 6.7 MG/DL (3.1-7.8)
[2023-11-04 10:28] LABS: FREE T4 1.31 NG/DL (0.89-1.76); THYROID STIMULATING HORMONE 2.52 uIU/ML (0.55-4.78)
[2023-11-04 10:29] LABS: TOTAL 25(OH) VITAMIN D 36.7 NG/ML (20.0-100.0)
[2023-11-04 10:30] LABS: ALBUMIN 3.1 G/DL (3.2-5.2); BILIRUBIN,TOTAL 0.4 MG/DL (0.3-1.2); CALCIUM LEVEL 9.2 MG/DL (8.3-10.6); CHOLESTEROL RISK RATIO 2.64 (<5); CREATININE FOR GFR 1.99 MG/DL (0.55-1.30); GLOMERULAR FILTRATION RATE 25.9 (>39); HDL CHOLESTEROL 60.9 MG/DL (>40); LDL CHOLESTEROL 77.1 MG/DL (<100); NON-HDL-C 100.1 MG/DL; POTASSIUM SERUM 4.6 MMOL/L (3.5-5.1); TOTAL PROTEIN 6.2 G/DL (5.7-8.2)
== END ==
LOC: M LAB 09:24
PROVIDERS: ATTEND Family Medicine
DX: I12.9 Hypertensive chronic kidney disease with stage 1 through stage 4 chronic kidney disease, or unspecified chronic kidney disease (principal); E78.2 Mixed hyperlipidemia; N25.81 Secondary hyperparathyroidism of renal origin; E79.0 Hyperuricemia without signs of inflammatory arthritis and tophaceous disease

== ENCOUNTER → 2023-11-22 | Outpatient (CLI) | payer MEDICARE, BC | LOC: M WHC 12:25 | PROVIDERS: ATTEND Family Medicine | DX: Z12.31 Encounter for screening mammogram for malignant neoplasm of breast (principal) ==

== ENCOUNTER → 2023-12-17 | Outpatient (CLI) | payer MEDICARE, BC | LOC: M WHC 12:42 | PROVIDERS: ATTEND Family Medicine | DX: R92.8 Other abnormal and inconclusive findings on diagnostic imaging of breast (principal) ==

== ENCOUNTER → 2024-02-10 | Outpatient (CLI) | payer MEDICARE, BC ==
[2024-02-10 10:48] LABS: BASO # 0.1 10^3/uL (0.0-0.2); BASO % 0.8 % (0.0-1.0); EOS # 0.2 10^3/uL (0.0-0.5); EOS % 2.8 % (0.0-3.0); HEMATOCRIT 34.5 % (36.0-47.0); HEMOGLOBIN 11.2 g/dl (12.0-15.5); LYMPH # 1.3 10^3/uL (1.5-5.0); LYMPH % 19.9 % (24.0-44.0); MEAN CORPUSCULAR HEMOGLOBIN 28.6 pg (27.0-33.0); MEAN CORPUSCULAR HGB CONC 32.5 g/dl (32.0-36.5); MONO # 0.7 10^3/uL (0.0-0.8); MONO % 11.5 % (2.0-8.0); NEUTROPHILS # 4.1 10^3/uL (1.5-8.5); NEUTROPHILS % 64.7 % (36.0-66.0); PLATELET COUNT, AUTOMATED 294 10^3/uL (150-450); RED BLOOD COUNT 3.92 10^6/uL (4.00-5.40); WHITE BLOOD COUNT 6.3 10^3/uL (4.0-10.0)
[2024-02-10 11:19] LABS: URIC ACID 7.2 MG/DL (3.1-7.8)
[2024-02-10 11:21] LABS: FREE T4 1.35 NG/DL (0.89-1.76)
[2024-02-10 11:22] LABS: ALBUMIN 3.4 G/DL (3.2-5.2); BILIRUBIN,TOTAL 0.3 MG/DL (0.3-1.2); CHOLESTEROL RISK RATIO 3.17 (<5); CREATININE FOR GFR 1.98 MG/DL (0.55-1.30); HDL CHOLESTEROL 50.4 MG/DL (>40); LDL CHOLESTEROL 81.2 MG/DL (<100); NON-HDL-C 109.6 MG/DL; POTASSIUM SERUM 4.5 MMOL/L (3.5-5.1); THYROID STIMULATING HORMONE 3.42 uIU/ML (0.55-4.78); TOTAL PROTEIN 6.4 G/DL (5.7-8.2)
== END ==
LOC: M LAB 09:53
PROVIDERS: ATTEND Family Medicine
DX: I12.9 Hypertensive chronic kidney disease with stage 1 through stage 4 chronic kidney disease, or unspecified chronic kidney disease (principal); E78.2 Mixed hyperlipidemia; E03.9 Hypothyroidism, unspecified; E79.0 Hyperuricemia without signs of inflammatory arthritis and tophaceous disease

== ENCOUNTER → 2024-08-25 | Outpatient (CLI) | payer MEDICARE, BC ==
[2024-08-25 12:13] LABS: HEMATOCRIT 36.5 % (36.0-47.0); HEMOGLOBIN 11.9 g/dl (12.0-15.5); MEAN CORPUSCULAR HEMOGLOBIN 30.8 pg (27.0-33.0); MEAN CORPUSCULAR HGB CONC 32.6 g/dl (32.0-36.5); MEAN CORPUSCULAR VOLUME 94.6 fl (80.0-96.0); PLATELET COUNT, AUTOMATED 345 10^3/uL (150-450); RED BLOOD COUNT 3.86 10^6/uL (4.00-5.40); WHITE BLOOD COUNT 7.6 10^3/uL (4.0-10.0)
[2024-08-25 12:43] LABS: CALCIUM LEVEL 9.6 MG/DL (8.3-10.6); CREATININE FOR GFR 1.96 MG/DL (0.55-1.30); GLOMERULAR FILTRATION RATE 26.3 (>39)
== END ==
LOC: M LAB 11:32
PROVIDERS: ATTEND Nurse Practitioner Adult Health
DX: I12.9 Hypertensive chronic kidney disease with stage 1 through stage 4 chronic kidney disease, or unspecified chronic kidney disease (principal)

== ENCOUNTER → 2025-03-17 | Outpatient (CLI) | payer MEDICARE, BC ==
[~2025-03-17] MED LIST changes: -PRAV40TA2 PO; +PRAV40TA85 PO
[2025-03-17 11:07] LABS: FREE T4 1.31 NG/DL (0.89-1.76)
[2025-03-17 11:08] LABS: ALT/SGPT 17.0 U/L (7.0-40); AST/SGOT 20.0 U/L (<34); CALCIUM LEVEL 10.4 MG/DL (8.3-10.6); CARBON DIOXIDE LEVEL 28.0 MMOL/L (20-31); CHLORIDE LEVEL 101.0 MMOL/L (98-107); CHOLESTEROL LEVEL 181.0 MG/DL (<200); CHOLESTEROL RISK RATIO 2.75 (<5); CREATININE FOR GFR 1.72 MG/DL (0.55-1.30); GLOMERULAR FILTRATION RATE 30.1 (>39); LDL CHOLESTEROL 83.2 MG/DL (<100); NON-HDL-C 115.2 MG/DL; POTASSIUM SERUM 4.0 MMOL/L (3.5-5.1); SODIUM LEVEL 140.0 MMOL/L (136-145); TRIGLYCERIDES LEVEL 160.0 MG/DL (<150)
[2025-03-17 19:35] LABS: BASO # 0.1 10^3/uL (0.0-0.2); BASO % 0.7 % (0.0-1.0); EOS # 0.2 10^3/uL (0.0-0.5); EOS % 2.5 % (0.0-3.0); LYMPH # 1.4 10^3/uL (1.5-5.0); LYMPH % 17.2 % (24.0-44.0); MONO # 0.8 10^3/uL (0.0-0.8); MONO % 9.1 % (2.0-8.0); NEUTROPHILS # 5.8 10^3/uL (1.5-8.5); NEUTROPHILS % 70.1 % (36.0-66.0); PLATELET COUNT, AUTOMATED 288 10^3/uL (150-450)
== END ==
LOC: M LAB 10:11
PROVIDERS: ATTEND Nurse Practitioner Adult Health
DX: E78.2 Mixed hyperlipidemia (principal); E03.9 Hypothyroidism, unspecified; D63.1 Anemia in chronic kidney disease; E79.0 Hyperuricemia without signs of inflammatory arthritis and tophaceous disease

== ENCOUNTER 2025-04-03 16:59 | Emergency (ER) | payer MEDICARE, BC ==
[~2025-04-03] VITALS: Ht 162.6 cm; Wt 80.1 kg
[2025-04-03 17:59] LABS: BASO # 0.1 10^3/uL (0.0-0.2); BASO % 0.5 % (0.0-1.0); EOS # 0.1 10^3/uL (0.0-0.5); EOS % 0.6 % (0.0-3.0); LYMPH # 0.9 10^3/uL (1.5-5.0); LYMPH % 10.0 % (24.0-44.0); MONO # 1.0 10^3/uL (0.0-0.8); MONO % 10.9 % (2.0-8.0); NEUTROPHILS # 7.2 10^3/uL (1.5-8.5); NEUTROPHILS % 77.7 % (36.0-66.0); PLATELET COUNT, AUTOMATED 292 10^3/uL (150-450)
[2025-04-03] MEDS: LIDOCAINE 4% CREAM 5 GM (LMX4) TOP ONE (18:02)
[2025-04-03 18:21] LABS: C REACTIVE PROTEIN QUANTITATIV 9.72 MG/DL (<1.0)
[2025-04-03 18:26] LABS: ALT/SGPT 24 U/L (7.0-40); AST/SGOT 82 U/L (<34); CALCIUM LEVEL 8.8 MG/DL (8.3-10.6); CARBON DIOXIDE LEVEL 24 MMOL/L (20-31); CHLORIDE LEVEL 101 MMOL/L (98-107); CREATININE FOR GFR 1.68 MG/DL (0.55-1.30); GLOMERULAR FILTRATION RATE 30.8 (>39); POTASSIUM SERUM 5.2 MMOL/L (3.5-5.1); SODIUM LEVEL 138 MMOL/L (136-145)
[2025-04-03] MEDS: DOXYCYCLINE HYCLATE 100 MG TABLET PO ONE (18:52)
[2025-04-03] MEDS ORDERED: DOXY-441 PO (19:05)
[2025-04-03 19:35] VITALS: BP 159/72; TEMP 99.4; O2SAT 97
== END 2025-04-03 19:49 | disposition home or self-care (01) ==
LOC: EDBD 16:59 → M ED 16:59
DX: L03.116 Cellulitis of left lower limb (principal); E78.5 Hyperlipidemia, unspecified; I12.9 Hypertensive chronic kidney disease with stage 1 through stage 4 chronic kidney disease, or unspecified chronic kidney disease; F41.9 Anxiety disorder, unspecified; F32.A Depression, unspecified; Z91.040 Latex allergy status; Z91.018 Allergy to other foods; Z79.1 Long term (current) use of non-steroidal anti-inflammatories (NSAID); Z79.2 Long term (current) use of antibiotics; Z79.899 Other long term (current) drug therapy

== ENCOUNTER 2025-04-08 14:43 | Inpatient (IN) | payer MEDICARE, BC ==
[~2025-04-08] VITALS: Ht 160 cm; Wt 83.3 kg
[~2025-04-08 14:43] MED LIST changes: +DOXY-441 PO
[2025-04-08] MEDS ORDERED: HYDR50TA46 PO (20:21)
[2025-04-08] MEDS ORDERED: OMEP1CAP73 PO (20:21)
[2025-04-08] MEDS ORDERED: DOXY-441 PO (20:21)
[2025-04-08] MEDS ORDERED: [UNRECOGNIZED DRUG - OTHER] PO (20:21)
[2025-04-08] MEDS ORDERED: TOLT4CAP3 PO (20:21)
[2025-04-08] MEDS ORDERED: CALC1CAP31 PO (20:23)
[2025-04-08] MEDS ORDERED: HOME MED LIST COMPLETE! XX SCH (20:25)
[2025-04-08] MEDS: TETANUS/DIPHTH/ACEL. PERTUSSIS 0.5 ML SYR IM.IMMUN ONE (20:39)
[2025-04-08] MEDS: PIPERACILLIN/TAZOBACTAM SOD 3.375 GM in DEXTROSE 5% (D5W) ADV/MINI-BAG 50 ML IV ONE (20:40)
[2025-04-08] MEDS: NS 500 ML IV ONE (20:40)
[2025-04-08 20:55] LABS: BASO # 0.1 10^3/uL (0.0-0.2); BASO % 0.8 % (0.0-1.0); EOS # 0.2 10^3/uL (0.0-0.5); EOS % 2.2 % (0.0-3.0); LYMPH # 1.8 10^3/uL (1.5-5.0); LYMPH % 20.5 % (24.0-44.0); MONO # 1.0 10^3/uL (0.0-0.8); MONO % 11.2 % (2.0-8.0); NEUTROPHILS # 5.5 10^3/uL (1.5-8.5); NEUTROPHILS % 65.1 % (36.0-66.0); PLATELET COUNT, AUTOMATED 422 10^3/uL (150-450)
[2025-04-08 21:17] LABS: CALCIUM LEVEL 9.5 MG/DL (8.3-10.6); CARBON DIOXIDE LEVEL 28.0 MMOL/L (20-31); CHLORIDE LEVEL 104.0 MMOL/L (98-107); CREATININE FOR GFR 1.8 MG/DL (0.55-1.30); GLOMERULAR FILTRATION RATE 28.3 (>39); POTASSIUM SERUM 4.1 MMOL/L (3.5-5.1); SODIUM LEVEL 143.0 MMOL/L (136-145)
[2025-04-08] MEDS ORDERED: MOM 30 ML SUSPENSION UDC PO PRN (23:00)
[2025-04-08] MEDS ORDERED: ONDANSETRON 4MG/2ML VIAL IV PRN (23:00)
[2025-04-08] MEDS ORDERED: ACETAMINOPHEN 325 MG TAB PO PRN (23:00)
[2025-04-08] MEDS ORDERED: SPIRONOLACTONE 25 MG TAB PO PRN (23:00)
[2025-04-08] MEDS: traZODone 50 MG TAB PO SCH (23:42)
[2025-04-08] MEDS: busPIRone 5 MG TAB PO SCH (23:42)
[2025-04-08] MEDS: **hydrALAZINE** 50 MG TAB PO SCH (23:43)
[2025-04-08] MEDS: OMEPRAZOLE 20MG CAP PO SCH (23:43)
[2025-04-09 00:45] VITALS: BP 171/74; TEMP 98.3; O2SAT 97
[2025-04-09] MEDS: PIPERACILLIN/TAZOBACTAM SOD 2.25 GM in DEXTROSE 5% (D5W) ADV/MINI-BAG 50 ML IV SCH (02:47)
[2025-04-09] MEDS ORDERED: PIPERACILLIN/TAZOBACTAM SOD 3.375 GM in DEXTROSE 5% (D5W) ADV/MINI-BAG 50 ML IV SCH (03:00)
[2025-04-09 03:28] VITALS: BP 172/70; TEMP 98.4; O2SAT 96
[2025-04-09] MEDS: LEVOTHYROXINE 50 MCG TABLET (0.05 MG) PO SCH (05:13)
[2025-04-09 06:34] LABS: PLATELET COUNT, AUTOMATED 367 10^3/uL (150-450)
[2025-04-09 06:40] LABS: ALT/SGPT 19.0 U/L (7.0-40); AST/SGOT 24.0 U/L (<34); CALCIUM LEVEL 8.4 MG/DL (8.3-10.6); CARBON DIOXIDE LEVEL 24.0 MMOL/L (20-31); CHLORIDE LEVEL 106.0 MMOL/L (98-107); CREATININE FOR GFR 1.64 MG/DL (0.55-1.30); GLOMERULAR FILTRATION RATE 31.7 (>39); MAGNESIUM LEVEL 1.8 MG/DL (1.8-2.4); POTASSIUM SERUM 4.0 MMOL/L (3.5-5.1); SODIUM LEVEL 142.0 MMOL/L (136-145)
[2025-04-09 09:16] VITALS: BP 150/72; TEMP 98.7; O2SAT 97
[2025-04-09] MEDS: TOLTERODINE TARTRATE 2 MG LA CAP PO SCH (10:01)
[2025-04-09] MEDS: ASPIRIN 81 MG ENTERIC TABLET PO SCH (10:01)
[2025-04-09] MEDS: ENOXAPARIN 30 MG/0.3 ML SYRINGE (J1650 PER 10MG) SC SCH (10:03)
[2025-04-09] MEDS: PIPERACILLIN/TAZOBACTAM SOD 3.375 GM in DEXTROSE 5% (D5W) ADV/MINI-BAG 50 ML IV SCH (10:16)
[2025-04-09] MEDS ORDERED: LIDOCAINE 1% MDV 20 ML VIAL As Ordered ONE (11:06)
[2025-04-09] MEDS: LIDOCAINE 1% MDV 20 ML VIAL SC ONE (11:38)
[2025-04-09 12:05] VITALS: BP 151/67; TEMP 98.2; O2SAT 98
[2025-04-09 12:18] VITALS: BP 151/67; TEMP 98.2; O2SAT 98
[2025-04-09 19:30] VITALS: BP 148/66; TEMP 98.7; O2SAT 95
[2025-04-09] MEDS: PRAVASTATIN 20 MG TAB PO SCH (20:43)
[2025-04-10 04:38] VITALS: BP 158/69; TEMP 97.7; O2SAT 94
[2025-04-10 06:37] LABS: CALCIUM LEVEL 8.3 MG/DL (8.3-10.6); CARBON DIOXIDE LEVEL 24.0 MMOL/L (20-31); CHLORIDE LEVEL 108.0 MMOL/L (98-107); CREATININE FOR GFR 1.76 MG/DL (0.55-1.30); GLOMERULAR FILTRATION RATE 29.1 (>39); POTASSIUM SERUM 4.1 MMOL/L (3.5-5.1); SODIUM LEVEL 144.0 MMOL/L (136-145)
[2025-04-10] MEDS: CALCITRIOL 0.25 MCG CAP (S0169) PO SCH (08:26)
[2025-04-10] MEDS ORDERED: CALCITRIOL 0.25 MCG CAP (S0169) PO SCH (09:00)
[2025-04-10] MEDS ORDERED: traMADol 50 MG TAB PO PRN (10:55)
[2025-04-10 11:32] VITALS: BP 150/67; TEMP 98.3; O2SAT 95
[2025-04-10 19:46] VITALS: BP 158/72; TEMP 98.2; O2SAT 98
[2025-04-11 03:08] VITALS: BP 148/66; TEMP 99; O2SAT 93
[2025-04-11 06:08] LABS: PLATELET COUNT, AUTOMATED 365 10^3/uL (150-450)
[2025-04-11 06:28] LABS: CALCIUM LEVEL 8.2 MG/DL (8.3-10.6); CARBON DIOXIDE LEVEL 23.0 MMOL/L (20-31); CHLORIDE LEVEL 109.0 MMOL/L (98-107); CREATININE FOR GFR 1.81 MG/DL (0.55-1.30); GLOMERULAR FILTRATION RATE 28.1 (>39); POTASSIUM SERUM 4.3 MMOL/L (3.5-5.1); SODIUM LEVEL 143.0 MMOL/L (136-145)
[2025-04-11 12:24] VITALS: BP 143/71; TEMP 98.3; O2SAT 98
[2025-04-11 20:10] VITALS: BP 142/74; TEMP 98.2; O2SAT 98
[2025-04-12 03:37] VITALS: BP 144/64; TEMP 98.7; O2SAT 95
[2025-04-12 07:29] LABS: CALCIUM LEVEL 8.5 MG/DL (8.3-10.6); CARBON DIOXIDE LEVEL 24.0 MMOL/L (20-31); CHLORIDE LEVEL 107.0 MMOL/L (98-107); CREATININE FOR GFR 1.97 MG/DL (0.55-1.30); GLOMERULAR FILTRATION RATE 25.4 (>39); POTASSIUM SERUM 3.6 MMOL/L (3.5-5.1); SODIUM LEVEL 142.0 MMOL/L (136-145)
[2025-04-12] MEDS ORDERED: ACET32TAB PO (07:30)
[2025-04-12] MEDS ORDERED: TRAM50TA2 PO (07:30)
[2025-04-12 10:07] VITALS: BP 125/57
[2025-04-12 10:47] VITALS: BP 125/57; TEMP 98.5; O2SAT 96
[2025-04-12] MEDS ORDERED: AMOX875T2 PO (11:32)
[2025-04-12] MEDS ORDERED: PROB250C PO (11:32)
== END 2025-04-12 13:15 | disposition home health service (06) | DRG 935 ==
LOC: M ED 14:43 → M ED INP 22:57 → M MSPAV 04-09 00:42
PROVIDERS: ADMIT Internal Medicine; ATTEND Internal Medicine
PROC: 0JBR3ZZ Excision of Left Foot Subcutaneous Tissue and Fascia, Percutaneous Approach (ICD-10-PCS; principal; 2025-04-09)
DX: T25.222A Burn of second degree of left foot, initial encounter (principal); L03.116 Cellulitis of left lower limb; N18.30 Chronic kidney disease, stage 3 unspecified; E03.9 Hypothyroidism, unspecified; I12.9 Hypertensive chronic kidney disease with stage 1 through stage 4 chronic kidney disease, or unspecified chronic kidney disease; E78.5 Hyperlipidemia, unspecified; K21.9 Gastro-esophageal reflux disease without esophagitis; E87.6 Hypokalemia; Z79.82 Long term (current) use of aspirin; Z79.899 Other long term (current) drug therapy; Z79.890 Hormone replacement therapy; Z91.018 Allergy to other foods; Z91.040 Latex allergy status; R32 Unspecified urinary incontinence; G47.00 Insomnia, unspecified; X10.1XXA Contact with hot food, initial encounter; Y92.018 Other place in single-family (private) house as the place of occurrence of the external cause; Y93.89 Activity, other specified; Y99.8 Other external cause status